=== PATIENT | male | born 1970 | race African-American/Black ===

== ENCOUNTER 2016-10-18 10:08 | Inpatient (IN) | payer MEDICAID ==
--- NOTE | 2016-10-18 10:35 | CPEKG ---
Heart Rate: 78 RR Interval: 769 P-R Interval: 148 QRSD Interval: 94 QT Interval: 440 QTC Interval: 502 P [place]: 43 QRS [place]: 19 T Wave [place]: 22 EKG Severity - ABNORMAL ECG - EKG Impression: SINUS RHYTHM Electronically Signed By: Darrell Todd 18-Oct-2016 13:42:19
--- NOTE | 2016-10-18 11:14 | EDPHY ---
H & P Smoking Status: Heavy smoker Time Seen by Provider: 10/18/16 10:30 HPI/ROS: CHIEF COMPLAINT: Short of breath, swelling bilateral legs HISTORY OF PRESENT ILLNESS: 46-year-old homeless male presents to the emergency department complaining of feeling short of breath, pain in his chest, and swelling in his lower legs. Patient states that he has felt short of breath and has had swelling in his legs intermittently for months. Feels that they have been acutely worse over last 1 week. He has not seen doctor for this in the past. He denies any reported trauma. He states he came to the emergency department today because I just could not walk. He feels short of breath lying flat but also with activity. He denies abdominal pain. He denies headache. Has a history of hypertension and has not been taking his medication as prescribed recently. Does admit to drinking alcohol for the pain. REVIEW OF SYSTEMS: Constitutional: No fever, no chills. Eyes: No double or blurry vision. ENT: No sore throat. Respiratory: Cough, shortness of breath Cardiac: Chest pain as above Gastrointestinal: No abdominal pain, vomiting or diarrhea. Genitourinary: No dysuria. Musculoskeletal: No neck or back pain. Skin: No rashes. Neurological: No headache. (NandiniMarlene lyons Ravindra) Past Medical/Surgical History: Hypertension noncompliant with medication (SumanthMarlene Ravindra) Social History: homeless (Marlene Julio) Physical Exam: General Appearance: Alert, no distress. 87% on room air. 129/89, temperature 36.5 Eyes: Pupils equal and round. Extraocular motions are all intact. ENT: Mouth: Mucous membranes moist. Respiratory: Decreased breath sounds in the bases bilaterally. Diffuse expiratory rhonchi in the apices. No respiratory distress. Cardiovascular: Regular rate and rhythm. Gastrointestinal: Abdomen is soft and nontender, no masses, no rebound or guarding, bowel sounds normal. Neurological: Alert and oriented x 3, cranial nerves II through XII grossly intact Skin: Warm and dry, no rashes. Musculoskeletal: Nontender to palpate along the cervical, thoracic or lumbar spine. Neck is supple. Extremities: Pedal edema noted bilateral lower extremities. Psychiatric: Patient is oriented X 3, there is no agitation. (SumanthMarlene) Constitutional: Initial Vital Signs Temperature (C) 36.5 C 10/18/16 10:14 Heart Rate 91 10/18/16 10:14 Respiratory Rate 18 10/18/16 10:14 Blood Pressure 129/89 H 10/18/16 10:14 O2 Sat (%) 87 L 10/18/16 10:14 O2 Delivery Mode Nasal Cannula O2 (L/minute) 2 Allergies/Adverse Reactions: venom-honey bee [bee venom (honey bee)] Allergy (Verified 06/13/16 17:15) Home Medications: Medication Instructions Recorded Doxepin HCl 06/13/16 Lisinopril/Hctz 20/12.5MG 06/13/16 Risperidone 06/13/16 amLODIPine BESYLATE [Norvasc 10 mg 10 mg PO DAILY #30 tab 06/13/16 (*)] Ibuprofen [Motrin (*)] 800 mg PO Q6-8PRN #7 tab 09/24/16 Medical Decision Making - Diagnostics EKG Interpretation: EKG: Complete interpretation has been separately recorded in the [employer] archive. Summary impression: Sinus rhythm, rate 78 (Darrell Todd) ED Course/Re-evaluation: 46-year-old male presents to the emergency department complaining of chest pain , shortness of breath and bilateral lower extremity edema. States the shortness of breath and edema in his lower legs has been present for months. He has pain in his chest for the last 3 days. He denies any known trauma or injury. His troponin is elevated at 0.041. Patient will be admitted to PCU to Dr. Jorge Sheldon. BNP is negative. Electrolytes are within normal limits. Chest x-ray was unremarkable. (Marlene Julio) Differential Diagnosis: Including but not limited to congestive heart failure, myocardial infarction, pneumonia, pulmonary embolism (Marlene Julio) Other Provider: PHYSICIAN DOCUMENTATION: The patient was evaluated and managed by the Physician Case Resolution Specialist. My co- signature indicates that I have reviewed this chart and I agree with the findings and plan of care as documented. I am the secondary supervising physician. (Darrell Todd) - Data Points Laboratory Results: Laboratory Results 10/18/16 10:45 10/18/16 10:45 10/18/16 10:45 WBC 14.00 H 10^3/uL (3.80-9.50) RBC 4.84 10^6/uL (4.40-6.38) Hgb 15.4 g/dL (13.7-17.5) Hct 45.7 % (40.0-51.0) MCV 94.4 fL (81.5-99.8) MCH 31.8 pg (27.9-34.1) MCHC 33.7 g/dL (32.4-36.7) RDW 15.0 % (11.5-15.2) Plt Count 298 10^3/uL (150-400) MPV 8.4 L fL (8.7-11.7) Neut % (Auto) 68.7 % (39.3-74.2) Lymph % (Auto) 18.0 % (15.0-45.0) [place] % (Auto) 10.1 % (4.5-13.0) Eos % (Auto) 1.4 % (0.6-7.6) Baso % (Auto) 0.7 % (0.3-1.7) Nucleat RBC Rel Count 0.0 % (0.0-0.2) Absolute Neuts (auto) 9.62 H 10^3/uL (1.70-6.50) Absolute Lymphs (auto) 2.52 10^3/uL (1.00-3.00) Absolute Monos (auto) 1.42 H 10^3/uL (0.30-0.80) Absolute Eos (auto) 0.19 10^3/uL (0.03-0.40) Absolute Basos (auto) 0.10 10^3/uL (0.02-0.10) Absolute Nucleated RBC 0.00 10^3/uL (0-0.01) Immature Gran % 1.1 % (0.0-1.1) Immature Gran # 0.15 H 10^3/uL (0.00-0.10) Sodium 140 mEq/L (134-144) Potassium 3.7 mEq/L (3.5-5.2) Chloride 102 mEq/L (97-110) Carbon Dioxide 27 mEq/l (22-31) Anion Gap 11 mEq/L (8-16) BUN 13 mg/dL (7-23) Creatinine 0.9 mg/dL (0.7-1.3) Estimated GFR > 60 Glucose 97 mg/dL (70-100) Calcium 7.7 L mg/dL (8.5-10.4) Troponin I 0.041 H ng/mL (0-0.034) NT-Pro-B Natriuret Pep 79 pg/mL (0-125) Ethyl Alcohol 175 H mg/dL (0-10) Departure - Departure Disposition: [facility] Acute Clinical Impression: Chest pain Qualifiers: Chest pain type: unspecified Qualifier Code: (R07.9) Chest pain, unspecified Condition: Good
[2016-10-18 11:15] LABS: % IMMATURE GRANULYOCYTES 1.1 % (0.0-1.1); ABSOLUTE IMMATURE GRANULOCYTES 0.15 10^3/uL (0.00-0.10); ADD DIFF? NO; ADD MORPH? NO; ADD SCAN? NO; ATYPICAL LYMPHOCYTE FLAG 0 (0-99); FRAGMENT RBC FLAG 0 (0-99); HEMATOCRIT 45.7 % (40.0-51.0); HEMOGLOBIN 15.4 g/dL (13.7-17.5); LEFT SHIFT FLG 10 (0-99); LIPEMIA HEMOLYSIS FLAG 80 (0-99); MEAN CELL HEMOGLOBIN 31.8 pg (27.9-34.1); MEAN CELL HEMOGLOBIN CONCENTR. 33.7 g/dL (32.4-36.7); MEAN CELL VOLUME 94.4 fL (81.5-99.8); MEAN PLATELET VOLUME 8.4 fL (8.7-11.7); PLATELET CLUMPS FLAG 10 (0-99); PLATELET COUNT 298 10^3/uL (150-400); RED BLOOD CELL COUNT 4.84 10^6/uL (4.40-6.38)
[2016-10-18 11:32] LABS: ANION GAP 11 mEq/L (8-16); CALCIUM 7.7 mg/dL (8.5-10.4); CARBON DIOXIDE 27 mEq/l (22-31); CHLORIDE 102 mEq/L (97-110); CREATININE 0.9 mg/dL (0.7-1.3); ETHANOL SERUM 175 mg/dL (0-10); GLOMERULAR FILTRATION RATE > 60; GLUCOSE 97 mg/dL (70-100); POTASSIUM 3.7 mEq/L (3.5-5.2); SODIUM 140 mEq/L (134-144)
--- NOTE | 2016-10-18 11:36 | DX ---
PA and lateral chest History: Chest pain, shortness of breath. Comparison: PA and lateral chest September 15, 2016. Findings: Lung volumes are low. The lungs are clear. Eventration of the mid left hemidiaphragm is ag ain noted. There is no pneumothorax or pleural effusion. The heart and pulmonary vasculature are norm al. Degenerative change is present in the spine with stable mild anterior height reduction of T7 and T8. Impression: No acute findings in the chest.
[2016-10-18 11:43] LABS: TROPONIN I 0.041 ng/mL (0-0.034)
[2016-10-18] MEDS ORDERED: ONDANSETRON DISINTEGRATING 4 MG TAB PO PRN (14:41)
--- NOTE | 2016-10-18 15:55 | GHP ---
[f rep st] HISTORY AND PHYSICAL DATE OF ADMISSION: 10/18/2016 HISTORY: Mr. Baxter is a 46-year-old gentleman with a history of hypertension, who presents to the emergency department intoxicated with shortness of breath, chest pain, and swelling in his legs. When I speak with the patient, he is difficult to arouse, but he does arouse. However, he denies chest pain, or shortness of breath. He states his legs have been swelling for about 5-6 months. He has been on Norvasc for a period of time , but it appears low shorter than that. Per the ER note, his swelling has gotten last worse over the last week and he acknowledges this to me. He denies a history of blood clots. It has been difficult to walk. Other than that, he is a little bit more challenging to get information out of. REVIEW OF SYSTEMS: Complete 10-point review of systems conducted, negative as noted in the HPI. PAST MEDICAL HISTORY: Hypertension. SOCIAL HISTORY: Homeless. He denies cigarettes. He does have a positive alcohol level of 175 here. ALLERGIES: Venom, AKA honey bee. MEDICATIONS ON ADMISSION: Norvasc, lisinopril/hydrochlorothiazide, Risperdal, doxepin, ibuprofen. FAMILY HISTORY: Reviewed and unremarkable. PHYSICAL EXAMINATION: VITAL SIGNS: Blood pressure 155/99, pulse 84, breathing 16 times a minute, 96% on 2 L, afebrile at 37. GENERAL: No acute distress, somnolent, difficult to arouse, but he is in fact arousable. HEENT: Sclerae are anicteric. Oropharynx is clear. Mucous membranes are moist. NECK: Supple without lymphadenopathy or JVD. LUNGS: Clear to auscultation bilaterally. HEART: S1, S2 without tachycardia. ABDOMEN: Soft, nontender, nondistended. LOWER EXTREMITIES: Show 3+ edema bilaterally. Calves are nontender. SKIN: Without rash. NEUROLOGIC: Grossly nonfocal. LABS: Alcohol level 175. Sodium 140, potassium 3.7, chloride 102, bicarb 27, BUN 13, creatinine 0.9, glucose 97. Calcium is low at 7.7. Troponin is 0.041. BNP is normal at 79. White count 14 with a normal differential, hematocrit 45 , platelets are 298,000. IMAGING: Chest x-ray, interpreted by me, shows no acute cardiopulmonary disease , including no pneumonia. EKG interpreted by me, shows sinus at 70 with normal axis and intervals. There is a visual suggestion of ST elevation in lead 1 however, the TP segment is the same as the ST_. I have discussed the case with Marlene Julio in the emergency department. ASSESSMENT AND PLAN: A 46-year-old gentleman, presents with lower extremity edema, shortness of breath, and intoxication. 1. Lower extremity edema: I think workup for VTE is warranted. I have ordered an ultrasound and a D-dimer. Should the ultrasound be negative and the D-dimer be positive, we will consider CT of the chest for pulmonary embolism. a normal BNP essentially rules out acute or chronic CHF; echocardiogram has been ordered for completeness sake. 2. Positive troponin: There are a myriad of causes for this, including strain from pulmonary embolism or cardiac ischemia. Will cycle his EKGs, put him on telemetry, and repeat his EKG. I will give him an aspirin. Will check a lipid panel in the morning. 3. Intoxication: This limits the utility of history taking in this patient. We will follow. The patient does not have a lot of presentations here in the past, unclear if he is at risk for withdrawal. Will follow. 4. Prophylaxis: Pharmacologic prophylaxis indicated if in the hospital for longer 24 hours. Will start it today. 5. Hypertension: We will continue his medicines and they have been reconciled. DISPOSITION: Observation status. /[id number]/MODL MTDD
--- NOTE | 2016-10-18 16:00 | CPEKG ---
Heart Rate: 87 RR Interval: 690 P-R Interval: 144 QRSD Interval: 88 QT Interval: 424 QTC Interval: 510 P [place]: 54 QRS [place]: 35 T Wave [place]: 22 EKG Severity - ABNORMAL ECG - EKG Impression: SINUS RHYTHM EKG Impression: CONSIDER LEFT VENTRICULAR HYPERTROPHY EKG Impression: PROLONGED QT INTERVAL Electronically Signed By: Sb Molina 19-Oct-2016 08:51:00
[2016-10-18 16:37] LABS: ALBUMIN 3.1 g/dL (3.5-5.0); BILIRUBIN,TOTAL 0.4 mg/dL (0.1-1.4); BILIRUBIN-CONJUGATED 0.2 mg/dL (0.0-0.5); BILIRUBIN-UNCONJUGATED 0.2 mg/dL (0.0-1.1); TOTAL PROTEIN 6.1 g/dL (6.3-8.2)
[2016-10-18 16:49] LABS: TROPONIN I 0.034 ng/mL (0-0.034)
[2016-10-18] MEDS: ASPIRIN 325 MG TAB PO SCH (17:29)
--- NOTE | 2016-10-18 17:33 | US ---
Bilateral Lower Extremity Ultrasound and Venous Duplex Doppler Study History: Bilateral lower extremity edema. Comparison: None available. Technique: High frequency transducer was used for imaging and Doppler study of the veins of the righ t and left lower extremities. Pulsed Doppler and color Doppler were utilized, along with various ma neuvers to assess flow in the veins. Findings: Right: The calf veins are difficult to visualize. The deep veins of the right lower extremity are nor dee compressible between the groin and the upper calf. They have normal Doppler waveforms within th em. No venous thrombosis is identified. Left: The calf veins are difficult to visualize. The deep veins of the left lower extremity are rashad lly compressible between the groin and the upper calf. They have normal Doppler waveforms within them . No venous thrombus is identified. There is a 5.2 x 1.5 x 4.6 cm fluid collection in the left poplit eal fossa. Subcutaneous edema is present in the calves. Impression: 1. No evidence of deep vein thrombosis in the lower extremities. 2. Left Alva's cyst.
[2016-10-18] MEDS ORDERED: FUROSEMIDE 40 MG/4 ML VIAL IVP ONE (17:37)
[2016-10-18] MEDS: oxyCODONE IR 5 MG TAB PO PRN (17:52)
[2016-10-18] MEDS ORDERED: IOPAMIDOL (ISOVUE 370) 100 ML BTL IV ONE (18:05)
--- NOTE | 2016-10-18 19:17 | CT ---
CT Chest Angiogram 1834 hours Indication: Chest pain. Technique: Thinly collimated multidetector helical CT imaging was performed through the chest while 90 mL of Isovue-370 were injected intravenously without complication. The images were then transferr ed to an independent workstation where multiplanar reconstructions were performed. Dose reduction bari hniques were utilized. Findings: CT Chest Angiogram: The pulmonary arterial system is well opacified. No intraluminal filling defect s to suggest acute or chronic thrombopulmonary embolic disease. The thoracic aorta is normal caliber . No aneurysm or dissection. CT Chest: The left hemidiaphragm is asymmetrically elevated, resulting in minimal hypoventilation in the left lower lobe. Minimal bibasilar atelectasis is accompanied by diffuse peribronchial thickening . No endobronchial lesion, mucous plugging, consolidation, pulmonary nodule, or mass. The heart size is normal. No pericardial or pleural effusion. No fracture or bone lesion. A left cervical rib is partially fused to the left first rib anteriorly. Degenerative arthropathy involves bilateral glenohumeral joints. Impression: 1. No evidence of thrombopulmonary embolic disease. 2. Minimal bibasilar atelectasis and peribronchial thickening. 3. No pneumothorax or pneumonia. 4. No rib fracture or explanation for left-sided pain.
--- NOTE | 2016-10-18 19:37 | HOSPPROG ---
Hospitalist Progress Note Assessment/Plan: VTE workup neg stress ordered for 10/19 Objective: Vital Signs Temp Pulse Resp BP Pulse Ox 36.9 C 85 17 153/98 H 95 10/18/16 14:23 10/18/16 14:23 10/18/16 14:23 10/18/16 14:23 10/18/16 14:23 10/17/16 10/18/16 10/19/16 05:59 05:59 05:59 Output Total 800 Balance -800 ICD10 Worksheet Patient Problems: Problems Problem Status Diagnosed Chest pain Acute
[2016-10-18] MEDS: amLODIPine BESYLATE 5 MG TAB PO SCH (20:24)
[2016-10-19 05:13] LABS: % IMMATURE GRANULYOCYTES 0.7 % (0.0-1.1); ABSOLUTE IMMATURE GRANULOCYTES 0.09 10^3/uL (0.00-0.10); ADD DIFF? NO; ADD MORPH? NO; ADD SCAN? NO; ATYPICAL LYMPHOCYTE FLAG 0 (0-99); FRAGMENT RBC FLAG 0 (0-99); HEMATOCRIT 45.4 % (40.0-51.0); HEMOGLOBIN 15.1 g/dL (13.7-17.5); LEFT SHIFT FLG 10 (0-99); LIPEMIA HEMOLYSIS FLAG 80 (0-99); MEAN CELL HEMOGLOBIN 31.9 pg (27.9-34.1); MEAN CELL HEMOGLOBIN CONCENTR. 33.3 g/dL (32.4-36.7); MEAN PLATELET VOLUME 8.6 fL (8.7-11.7); PLATELET CLUMPS FLAG 0 (0-99); PLATELET COUNT 283 10^3/uL (150-400); RED BLOOD CELL COUNT 4.73 10^6/uL (4.40-6.38); RED CELL DISTRIBUTION WIDTH 15.2 % (11.5-15.2)
[2016-10-19 05:17] LABS: ANION GAP 9 mEq/L (8-16); CARBON DIOXIDE 32 mEq/l (22-31); CHLORIDE 103 mEq/L (97-110); CHOLESTEROL 164 mg/dL (140-200); CHOLESTEROL/HDL RATIO 4.32 RATIO (1.00-4.97); CREATININE 0.8 mg/dL (0.7-1.3); GLOMERULAR FILTRATION RATE > 60; GLUCOSE 94 mg/dL (70-100); HIGH DENSITY LIPOPROTEIN 38 mg/dL (40-65); LDL/HDL RATIO 2.89 RATIO (1.00-3.64); LOW DENSITY LIPOPROTEIN 110 mg/dL (70-100); NON-HIGH DENSITY LIPOPROTEIN 126 mg/dL (90-129); SODIUM 144 mEq/L (134-144); TRIGLYCERIDE 83 mg/dL (40-150); VERY LOW DENSITY LIPOPROTEINS 16 mg/dL (8-25)
[2016-10-19 05:20] LABS: INR 1.03 (0.83-1.16); PROTIME(PATIENT) 13.4 SEC (12.0-15.0)
[2016-10-19] MEDS: amLODIPine BESYLATE 5 MG TAB PO SCH (08:11)
[2016-10-19] MEDS: ASPIRIN 325 MG TAB PO SCH (08:11)
[2016-10-19] MEDS: oxyCODONE IR 5 MG TAB PO PRN ×2 (08:12→16:35)
[2016-10-19] MEDS: ENOXAPARIN 40 MG/0.4 ML SYR SC SCH (08:16)
[2016-10-19] MEDS: FUROSEMIDE 40 MG/4 ML VIAL IVP SCH ×2 (08:16→15:11)
--- NOTE | 2016-10-19 08:25 | HOSPPROG ---
Hospitalist Progress Note Assessment/Plan: #Anasarca -Lexiscan showed apical thinning vs. infarct, no ischemia -e/o diastolic HF, could not assess PASP. Suspect due to underlying ESTIVEN -no protein on UA, CTA negative for PE -cont IV Lasix and BP control. Added SEJAL-I today #Indeterminate troponin (peaked at 0.04) -no CP today. No ischemia on stress #Rash with excoriations -no e/o cellulitis -bacitracin to sores and triamcinolone to rash #Depression/anxiety/PTSD -has not been taking his meds -needs to FU at [facility] #Accelerated HTN: not been taking meds -Norvasc started. Add Lisinopril -monitor for Etoh w/d #Etoh abuse: came in intoxicated. No signs now, but monitor for withdrawal #Homelessness - to provide assisted info #Diet: regular #DVT ppx: -Lovenox #Disp: patient warrants inpatient admission for monitored IV diuresis and BP control. Subjective: LE edema for several months. No cough Objective: Vital Signs Temp Pulse Resp BP Pulse Ox 36.8 C 72 16 153/93 H 94 10/19/16 04:00 10/19/16 04:00 10/19/16 04:00 10/19/16 04:00 10/19/16 04:00 Laboratory Results 10/19/16 03:48 10/19/16 03:48 10/18/16 10/19/16 10/20/16 05:59 05:59 05:59 Intake Total 2600 Output Total 2825 Balance -225 PT 13.4 SEC (12.0-15.0) 10/19/16 03:48 INR 1.03 (0.83-1.16) 10/19/16 03:48 - Physical Exam Constitutional: obese Eyes: PERRL, anicteric sclera Ears, Nose, Mouth, Throat: moist mucous membranes, hearing normal Cardiovascular: regular rate and rhythym, no murmur, rub, or gallop, JVD (could not assess with obese neck), edema (+3-4 LE edema) Gastrointestinal: normoactive bowel sounds, soft, non-tender abdomen Genitourinary: no bladder fullness Skin: rash (pink papular rash over arms and upper back. Several open exoriations legs, arms and groin. No sign of cellulitis) Musculoskeletal: full muscle strength Neurologic: AAOx3 Psychiatric: interacting appropriately ICD10 Worksheet Patient Problems: Problems Problem Status Diagnosed Chest pain Acute
[2016-10-19] MEDS ORDERED: ALBUTEROL 60 PUFFS/8 GM MDI IH PRN (10:08)
[2016-10-19] MEDS: BACITRACIN OINTMENT 1 PACKET TP SCH ×2 (10:31→21:22)
[2016-10-19 10:50] LABS: COLOR PALE YELLOW; LEUKOCYTE ESTERASE,URINE NEGATIVE (NEGATIVE); NITRITE,URINE NEGATIVE (NEGATIVE)
[2016-10-19 11:44] LABS: FOLATE SERUM 9.81 ng/mL (2.80 - >20.00)
--- NOTE | 2016-10-19 12:00 | ECHO ---
[id number] + + [address] : : [place] [address] : : [phone] + Adult Echocardiographic Report + ---+ :Name: Deb DAMON Date: 10/19/2016 10:35 AM : : Hospital Admission Number: [id number] Location: 202: :: 1970 Gender: Male Height: 69 in : :Age: 46 yrs Race: BAA Weight: 260 lb : :Reason For Study: New LE edema, untreated ESTIVEN, Eval for : :LHF, RHF BSA: 2.3 meters2 : :History: No previous : + ---+ MMode/2D Measurements & Calculations IVSd: 1.6 cm RVDd: 3.0 cm FS: 28.1 % LVOT diam: 2.2 cm LVPWd: 1.8 cm LVIDd: 4.4 cm EDV(Teich): LVOT area: LVIDs: 3.1 cm 86.4 ml ESV(Teich): 3.8 cm2 39.2 ml EF(Teich): 54.6 % LVLd ap4: 7.7 cm SV(MOD-sp4): EDV(MOD-sp4): 49.0 ml 84.0 ml LVLs ap4: 6.6 cm ESV(MOD-sp4): 35.0 ml EF(MOD-sp4): 58.3 % Normal Measurement Values: + + :LVIDd (3.5-5.7cm) IVSd (0.6-1.1cm) LVPWd (0.6-1.1cm) Aortic Root (2.0-3.7cm)Left Atrium (1.5-4.0cm): :LV Vol(d) (76-115ml) LV Vol(s) (29-48ml) Ejec Fraction (50-65%)PV Edilson (0.6- 1.2m/s) TV Edilson (0.4-1.0m/s) : :MV E Edilson (0.8-1.0m/s)MV A Edilson (0.3-1.0m/s)LVOT Edilson (0.7-1.2m/s) Asc Ao Edilson ( 0.9-1.8m/s) : + + Doppler Measurements & Calculations MV E max edilson: MV V2 mean: Ao V2 max: LV V1 max: 70.1 cm/sec 54.9 cm/sec 149.6 cm/sec 122.3 cm/sec MV A max edilson: MV mean PG: Ao max P.0 mmHgLV V1 max P.9 cm/sec 1.4 mmHg Ao mean P.0 mmHg MV E/A: 0.85 MV V2 VTI: 23.8 cm5.8 mmHg LV V1 mean PG: MV dec time: MVA(VTI): 4.0 cm2 Ao V2 mean: 2.5 mmHg 0.29 sec 114.2 cm/sec LV V1 mean: Ao V2 VTI: 32.2 cm 72.1 cm/sec SURESH(I,D): 2.9 cm2 LV V1 VTI: 25.1 cm SURESH(V,D): 3.1 cm2 SV(LVOT): 94.9 ml PA V2 max: TR max edilson: 106.6 cm/sec 181.0 cm/sec PA max PG: TR max P.6 mmHg 13.1 mmHg RAP systole: 15.0 mmHg RVSP(TR): 28.1 mmHg Left Ventricle The left ventricle is normal in size. There is moderate concentric left ventricular hypertrophy. Ejection Fraction = 61%. There is Doppler evidence for diastolic dysfunction. Flattened septum is consistent with RV pressure/volume overload. Right Ventricle The right ventricle is normal in size and function. Atria The left atrial size is normal. The right atrium is mildly dilated. Mitral Valve The mitral valve is normal in structure and function. There is no mitral valve stenosis. There is no mitral regurgitation noted. Tricuspid Valve The tricuspid valve is normal in structure and function. There is no tricuspid stenosis. There is trace tricuspid regurgitation. Unable to assess PA systolic pressure. Aortic Valve The aortic valve is normal in structure and function. There is no aortic stenosis. There is no aortic insufficiency. Pulmonic Valve The pulmonic valve is not well visualized. There is no pulmonic valvular stenosis. There is no pulmonic valvular regurgitation. Great Vessels The aortic root is normal size. Pericardium/Pleural There is a fat pad seen. Conclusion A complete two-dimensional transthoracic echocardiogram was performed (2D, M-mode, Doppler and color flow Doppler). The left ventricle is normal in size. There is moderate concentric left ventricular hypertrophy. Ejection Fraction = 61%. There is Doppler evidence for diastolic dysfunction. The right atrium is mildly dilated. There is trace tricuspid regurgitation. The aortic valve is normal in structure and function. There is a fat pad seen. Unable to assess PA systolic pressure No prior echo Final Reading Physician: Dr Karma Ring electronically signed on 10/19/2016 11:59 AM Ordering Physician: Marcella Guan Performed By: Ana Justice
[2016-10-19] MEDS ORDERED: REGADENOSON 0.4 MG/5 ML SYR IVP ONE (12:05)
--- NOTE | 2016-10-19 13:32 | CPR ---
[f rep st] NONINVASIVE CARDIAC PROCEDURE REPORT DATE OF PROCEDURE: 10/19/2016 PROCEDURE: Lexiscan myocardial perfusion imaging injection. INDICATIONS FOR PROCEDURE: Chest pressure, shortness of breath, history of hypertension. PRE: After obtaining informed consent, and assuring patient's NPO for caffeine for greater than 12 h ours, the patient was placed on electrocardiogram. Initial electrocardiogram shows sinus rhythm, nor mal axis, occasional premature atrial contraction. The patient denies of any chest pain or shortness of breath. Initial blood pressure of 159/104, saturation 93% on room air. INJECTION: Patient was given Lexiscan slow IV push followed by nuclear isotope. The patient reporte d within 1 minute of injection of noticing shortness of breath, but resolved within 5 minutes. Reall y no significant EKG changes during our post-injection period. Vital signs remained stable. Within 5 minutes, patient reports all symptoms have subsided, final blood pressure of 154/94, saturating gre ater 92%. IMPRESSION: A 46-year-old male with known history of hypertension. Admitted with chest pressure and shortness of breath. Undergoing myocardial perfusion imaging study for evaluation of possible cardi ac ischemia. No significant EKG changes noted with Lexiscan injection. The patient reported mild katelyn rtness of breath within 1 minute of injection which resolved within 5. Vital signs remained stable. Patient will finish up post-myocardial perfusion imaging in Nuclear Medicine at this time. /[id number]/MODL
--- NOTE | 2016-10-19 13:52 | NM ---
Nuclear Medicine Myocardial Perfusion Stress and Rest Imaging History: Chest pain. Comparison: None available. Technique: Rest imaging is performed after the intravenous administration of 12.3 mCi of technetiu m 99m labeled sestamibi on October 19, 2016 at 1147. Stress imaging is performed after the intravenou s administration of 28.5 mCi of technetium 99m labeled sestamibi on October 19, 2016 at 1233. Resting heart rate was 69 and maximal heart rate of 98 was attained. 0.4 mg of Lexiscan was administered wi thout complication. Images are reviewed on the independent nuclear medicine work station, computer a nalysis is performed. Findings: The left ventricular ejection fraction is 53%. Stress and rest imaging demonstrates a sm all fixed apical region of hypoperfusion with no reversible component. No focal wall motion abnormali ties. Impression: 1. Left ventricular ejection fraction of 53%. 2. Apical thinning versus infarct with no evidence of ischemia. 3. No focal wall motion abnormalities. Findings discussed with Marcella Guan today at 1343 hours.
[2016-10-19] MEDS ORDERED: hydrALAZINE 10 MG TAB PO PRN (14:58)
[2016-10-19] MEDS: LISINOPRIL 5 MG TAB PO SCH (15:10)
[2016-10-19] MEDS: TRIAMCINOLONE 0.1% 15 GM CRTUBE TP SCH ×2 (16:35→21:22)
[2016-10-20 05:33] LABS: HEMOGLOBIN 15.4 g/dL (13.7-17.5); MEAN CELL HEMOGLOBIN 32.6 pg (27.9-34.1); MEAN CELL HEMOGLOBIN CONCENTR. 33.5 g/dL (32.4-36.7); MEAN CELL VOLUME 97.5 fL (81.5-99.8); RED BLOOD CELL COUNT 4.72 10^6/uL (4.40-6.38); RED CELL DISTRIBUTION WIDTH 14.6 % (11.5-15.2)
[2016-10-20 05:54] LABS: ANION GAP 6 mEq/L (8-16); CALCIUM 8.1 mg/dL (8.5-10.4); CARBON DIOXIDE 33 mEq/l (22-31); CHLORIDE 100 mEq/L (97-110); CREATININE 0.8 mg/dL (0.7-1.3); GLOMERULAR FILTRATION RATE > 60; GLUCOSE 98 mg/dL (70-100); POTASSIUM 3.7 mEq/L (3.5-5.2); SODIUM 139 mEq/L (134-144)
[2016-10-20] MEDS: oxyCODONE IR 5 MG TAB PO PRN ×2 (06:14→14:36)
[2016-10-20] MEDS: amLODIPine BESYLATE 5 MG TAB PO SCH (09:16)
[2016-10-20] MEDS: ASPIRIN 325 MG TAB PO SCH (09:16)
[2016-10-20] MEDS: FUROSEMIDE 40 MG/4 ML VIAL IVP SCH ×2 (09:17→14:36)
[2016-10-20] MEDS: LISINOPRIL 5 MG TAB PO SCH (09:17)
[2016-10-20] MEDS: ENOXAPARIN 40 MG/0.4 ML SYR SC SCH (09:17)
[2016-10-20] MEDS: TRIAMCINOLONE 0.1% 15 GM CRTUBE TP SCH ×3 (09:18→21:21)
[2016-10-20] MEDS: BACITRACIN OINTMENT 1 PACKET TP SCH ×2 (14:36→21:21)
--- NOTE | 2016-10-20 15:47 | HOSPPROG ---
Hospitalist Progress Note Assessment/Plan: 46 yo homeless man with PMH of etoh abuse presenting with CP and volume overload. 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 Mild volume overload noted on exam, continue IV lasix for now # acute hypoxic respiratory failure: presenting with o2 of 87% in setting of above, CTA personally reviewed and interpreted w/o e/o PE or PNA, no pleural effusion. Minimal atelectasis and suspect volume overload as above. Given body habitus, likely component of ESTIVEN as well. # folliculitis/furuncles: noted on exam, no e/o associated cellulitis and all are small and draining spontaneously, will continue to keep clean and dry and monitor # etoh abuse: w/o e/o withdrawal, monitoring # HTN: being treated with norvasc and lisinopril, remains slightly elevated, will add BB and monitor # gait instability: due to deconditioning and lower extremity pain likely being driven by edema, working with PT/OT and will likely require dc to snf # h/o depression, ptsd # dispo: IP status, will need > 48 hours stay for evaluation and management of above given multiple active comorbid conditions and inability to perform ADL's and ambulate safely independently Pt new to my care. Old records reviewed and summarized as above. Care plan reviewed with CM Subjective: no significant overnight events, still having sob w/o o2 on, difficulty ambulating without a walker Objective: Vital Signs Temp Pulse Resp BP Pulse Ox 36.8 C 70 15 132/82 H 96 10/20/16 11:27 10/20/16 11:27 10/20/16 11:27 10/20/16 11:27 10/20/16 11:27 Laboratory Results 10/20/16 03:46 10/20/16 03:46 10/19/16 10/20/16 10/21/16 05:59 05:59 05:59 Intake Total 1600 Output Total 2275 1175 Balance -675 -1175 PT 13.4 SEC (12.0-15.0) 10/19/16 03:48 INR 1.03 (0.83-1.16) 10/19/16 03:48 awake alert nad anicteric op clear rrr systolic murmur cta with dec bs at bases obese soft nt 1+ ble edema warm dry well perfused, scattered 1cm draining skin lesions and follicular inflammation oriented appropriate - Time Spent With Patient Time Spent with Patient: greater than 35 minutes Time Spent with Patient: Greater than 35 minutes spent on this patients care, greater than 50% of time spent counseling, educating, and coordinating care regarding the above mentioned plan. ICD10 Worksheet Patient Problems: Problems Problem Status Diagnosed Chest pain Acute
[2016-10-20] MEDS: NICOTINE 14 MG/24 HR PATCH TD SCH (16:35)
[2016-10-20] MEDS ORDERED: LORazepam 1 MG TAB PO PRN (17:51)
[2016-10-20] MEDS: LORazepam 2 MG/ML INJ IVP PRN ×2 (18:25→23:01)
[2016-10-20] MEDS: NS 1,000 ML IV SCH (18:30)
[2016-10-20] MEDS: ONDANSETRON 4 MG/2 ML VIAL IVP PRN ×2 (19:04→23:01)
[2016-10-21 04:57] LABS: HEMATOCRIT 51.6 % (40.0-51.0); HEMOGLOBIN 17.6 g/dL (13.7-17.5); MEAN CELL HEMOGLOBIN 32.5 pg (27.9-34.1); MEAN CELL HEMOGLOBIN CONCENTR. 34.1 g/dL (32.4-36.7); MEAN CELL VOLUME 95.4 fL (81.5-99.8); RED BLOOD CELL COUNT 5.41 10^6/uL (4.40-6.38); RED CELL DISTRIBUTION WIDTH 14.6 % (11.5-15.2)
[2016-10-21 05:12] LABS: ANION GAP 9 mEq/L (8-16); CALCIUM 8.8 mg/dL (8.5-10.4); CARBON DIOXIDE 30 mEq/l (22-31); CHLORIDE 103 mEq/L (97-110); CREATININE 0.8 mg/dL (0.7-1.3); GLOMERULAR FILTRATION RATE > 60; GLUCOSE 132 mg/dL (70-100); POTASSIUM 4.3 mEq/L (3.5-5.2); SODIUM 142 mEq/L (134-144)
[2016-10-21] MEDS: ONDANSETRON 4 MG/2 ML VIAL IVP PRN (05:36)
[2016-10-21] MEDS: NICOTINE 14 MG/24 HR PATCH TD SCH (09:19)
[2016-10-21] MEDS: ASPIRIN 325 MG TAB PO SCH (09:20)
[2016-10-21] MEDS: amLODIPine BESYLATE 5 MG TAB PO SCH (09:20)
[2016-10-21] MEDS: LISINOPRIL 5 MG TAB PO SCH (09:20)
[2016-10-21] MEDS: FUROSEMIDE 40 MG/4 ML VIAL IVP SCH ×2 (09:20→15:59)
[2016-10-21] MEDS: ENOXAPARIN 40 MG/0.4 ML SYR SC SCH (09:20)
[2016-10-21] MEDS: TRIAMCINOLONE 0.1% 15 GM CRTUBE TP SCH ×3 (09:21→20:43)
[2016-10-21] MEDS: BACITRACIN OINTMENT 1 PACKET TP SCH ×2 (09:21→20:43)
[2016-10-21] MEDS: ACETAMINOPHEN 325 MG TAB PO PRN (09:54)
[2016-10-21] MEDS: oxyCODONE IR 5 MG TAB PO PRN ×2 (09:55→20:41)
[2016-10-21] MEDS: NS 1,000 ML IV SCH (15:27)
--- NOTE | 2016-10-21 16:42 | HOSPPROG ---
Hospitalist Progress Note Assessment/Plan: 46 yo homeless man with PMH of etoh abuse presenting with CP and volume overload. 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 Mild volume overload noted on exam, continue IV lasix for now # acute hypoxic respiratory failure: presenting with o2 of 87% in setting of above, CTA personally reviewed and interpreted w/o e/o PE or PNA, no pleural effusion. Minimal atelectasis and suspect volume overload as above. Given body habitus, likely component of ESTIVEN as well. # etoh abuse and withdrawal: started on ciwa, continue to monitor # folliculitis/furuncles: noted on exam, no e/o associated cellulitis and all are small and draining spontaneously, will continue to keep clean and dry and monitor # HTN: being treated with norvasc and lisinopril, remains slightly elevated, will add BB and monitor # gait instability: due to deconditioning and lower extremity pain likely being driven by edema, working with PT/OT and will likely require dc to snf # h/o depression, ptsd # dispo: IP status, will need > 48 hours stay for evaluation and management of above given multiple active comorbid conditions and inability to perform ADL's and ambulate safely independently Subjective: no significant overnight events, patient is currently feeling a bit better though somnolent, still having difficulty walking Objective: Vital Signs Temp Pulse Resp BP Pulse Ox 36.8 C 77 14 132/85 H 96 10/21/16 11:43 10/21/16 11:43 10/21/16 11:43 10/21/16 11:43 10/21/16 11:43 Laboratory Results 10/21/16 03:47 10/21/16 03:47 10/20/16 10/21/16 10/22/16 05:59 05:59 05:59 Intake Total 1600 1300 Output Total 2275 3100 625 Balance -675 -1800 -625 PT 13.4 SEC (12.0-15.0) 10/19/16 03:48 INR 1.03 (0.83-1.16) 10/19/16 03:48 awake alert nad anicteric op clear rrr systolic murmur cta with dec bs at bases obese soft nt 1+ ble edema warm dry well perfused, scattered 1cm draining skin lesions and follicular inflammation oriented appropriate ICD10 Worksheet Patient Problems: Problems Problem Status Diagnosed Chest pain Acute
[2016-10-22 04:47] LABS: HEMATOCRIT 45.4 % (40.0-51.0); HEMOGLOBIN 15.3 g/dL (13.7-17.5); MEAN CELL HEMOGLOBIN 32.7 pg (27.9-34.1); MEAN CELL HEMOGLOBIN CONCENTR. 33.7 g/dL (32.4-36.7); RED BLOOD CELL COUNT 4.68 10^6/uL (4.40-6.38); RED CELL DISTRIBUTION WIDTH 14.7 % (11.5-15.2)
[2016-10-22 04:51] LABS: ANION GAP 6 mEq/L (8-16); CALCIUM 8.4 mg/dL (8.5-10.4); CARBON DIOXIDE 33 mEq/l (22-31); CHLORIDE 101 mEq/L (97-110); CREATININE 0.8 mg/dL (0.7-1.3); GLOMERULAR FILTRATION RATE > 60; GLUCOSE 124 mg/dL (70-100); POTASSIUM 3.6 mEq/L (3.5-5.2); SODIUM 140 mEq/L (134-144)
[2016-10-22 08:05] VITALS: BP 148/95; PULSE 71; RESP 18; TEMP 98.3; O2SAT 93
[2016-10-22] MEDS ORDERED: NICOTINE POLACRILEX 2 MG GUM B PRN (09:39)
[2016-10-22] MEDS ORDERED: NICOTINE 21 MG/24 HR PATCH TD SCH (10:00)
[2016-10-22] MEDS: FUROSEMIDE 40 MG/4 ML VIAL IVP SCH (10:20)
[2016-10-22] MEDS: ENOXAPARIN 40 MG/0.4 ML SYR SC SCH (10:20)
[2016-10-22] MEDS: oxyCODONE IR 5 MG TAB PO PRN (10:20)
[2016-10-22] MEDS: ASPIRIN 325 MG TAB PO SCH (10:20)
[2016-10-22] MEDS: ACETAMINOPHEN 325 MG TAB PO PRN (10:21)
[2016-10-22] MEDS: LISINOPRIL 5 MG TAB PO SCH (10:21)
[2016-10-22] MEDS: amLODIPine BESYLATE 5 MG TAB PO SCH (10:21)
[2016-10-22] MEDS: TRIAMCINOLONE 0.1% 15 GM CRTUBE TP SCH (10:23)
[2016-10-22] MEDS: NICOTINE 14 MG/24 HR PATCH TD SCH (10:23)
[2016-10-22] MEDS: BACITRACIN OINTMENT 1 PACKET TP SCH (10:23)
--- NOTE | 2016-10-22 11:42 | PDDCSUM ---
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 essentially euvolemic at time of discharge. # acute hypoxic respiratory failure: resolved and doing well on RA currently, related to volume overload as above as well as component of atelectasis and likely minh. # etoh abuse and withdrawal: on ciwa but no longer having signficant w/d sxs # folliculitis/furuncles: noted on exam, no e/o associated cellulitis and all are small and draining spontaneously, will continue to keep clean and dry and monitor # HTN: being treated with norvasc and lisinopril, will need ongoing titration as an OP # gait instability: due to deconditioning and lower extremity pain likely being driven by edema, has improved, consideration was for snf however patient leaving hospital several times to smoke both cigarettes and marijuana. Rutledge he would likely not be compliant at snf, he agreed. # h/o depression, ptsd Dispo: dc to senior care Meds: see EHR, new meds include lisinopril, norvasc [facility] or two > 35 minutes spent in care of this patient, more than half in face to face counseling regarding discharge plans and f/u care.
== END 2016-10-22 12:43 | disposition home or self-care (01) | DRG 291 ==
LOC: F2W 14:22 → OBSVTOIN 10-19 15:12
PROVIDERS: ADMIT Internal Medicine; ATTEND Internal Medicine
PROC: HZ2ZZZZ Detoxification Services for Substance Abuse Treatment (ICD-10-PCS; principal; 2016-10-19)
DX: I50.31 Acute diastolic (congestive) heart failure (principal); I42.6 Alcoholic cardiomyopathy; J96.01 Acute respiratory failure with hypoxia; F10.230 Alcohol dependence with withdrawal, uncomplicated; F10.220 Alcohol dependence with intoxication, uncomplicated; G47.33 Obstructive sleep apnea (adult) (pediatric); L73.8 Other specified follicular disorders; I10 Essential (primary) hypertension; F43.12 Post-traumatic stress disorder, chronic; R26.81 Unsteadiness on feet; F17.210 Nicotine dependence, cigarettes, uncomplicated; F12.99 Cannabis use, unspecified with unspecified cannabis-induced disorder; Z59.0 Homelessness
CPT/HCPCS: 82607-90; 97116-GP; 97161-GP; 97165-GO; A9500; G0378; G0480; J1650; J2405; J2785; Q9967

== ENCOUNTER 2016-10-26 23:10 | Emergency (ER) | payer MEDICAID ==
[2016-10-27 00:11] VITALS: RESP 18
--- NOTE | 2016-10-27 00:16 | CPEKG ---
Heart Rate: 78 RR Interval: 769 P-R Interval: 140 QRSD Interval: 94 QT Interval: 440 QTC Interval: 502 P Belmont: 3 QRS [place]: 29 T Wave [place]: 37 EKG Severity - ABNORMAL ECG - EKG Impression: SINUS RHYTHM EKG Impression: CONSIDER LEFT VENTRICULAR HYPERTROPHY EKG Impression: PROLONGED QT INTERVAL Electronically Signed By: Jose Zuniga 27-Oct-2016 07:47:34
--- NOTE | 2016-10-27 00:36 | EDPHY ---
HPI/HX/ROS/PE/MDM Narrative: Chief complaint: Shortness of breath, numbness in feet, skin rash, general malaise HPI: 46-year-old male with a history of poorly controlled hypertension, congestive heart failure, was admitted to this hospital and discharged several days ago. Patient is currently homeless. He states that he has continued to have shortness of breath since his discharge. He is also complaining of a skin rash that he had while in the hospital. His has numbness in both of his feet and has general fatigue. The patient states that these have all been present since his discharge from the hospital. No recent fevers or chills. Has a nonproductive cough. He has not followed up with the primary care physician. States that he is unable to get his medications as he is homeless. ROS: 10 point Review of Systems is negative except as noted in the HPI. Physical exam: Gen: Awake, Alert, No Distress, obese HEENT: Nose: no rhinorrhea Eyes: PERRLA, EOMI Mouth: Moist mucosa Neck: Supple, no JVD Chest: nontender, lungs clear to auscultation Heart: S1, S2 normal, no murmur Abd: Soft, non-tender, no guarding Back: no CVA tenderness, no midline tenderness Ext: 2+ edema, non-tender Skin: His multiple lesions on his extremities and trunk consistent with folliculitis. There is no fluctuance. There are no abscesses. Neuro: CN II-XII intact, Sensation grossly intact, Strength 5/5 in bilateral upper and lower extremities ED Course: Chest x-ray: No acute infiltrates, no change from prior. 46 year male who was just discharged several days ago from the hospital for CHF exacerbation. Patient has poor compliance with medications. Lung sounds here clear. He is not currently in in any distress. Laboratory evaluations are unremarkable. Chest x-ray is also unremarkable at this time. Patient is at his baseline from his discharge. I do not feel that there is any acute exacerbations. He was also diagnosed with a folliculitis on discharge as well as this is not unchanged. There are no changes currently. Will discharge him with follow-up as an outpatient in encouragement to be compliant with medications. - Data Points Laboratory Results: Laboratory Results 10/27/16 00:15 10/27/16 00:15 10/27/16 00:15 WBC 10.13 H 10^3/uL (3.80-9.50) RBC 5.03 10^6/uL (4.40-6.38) Hgb 16.1 g/dL (13.7-17.5) Hct 46.7 % (40.0-51.0) MCV 92.8 fL (81.5-99.8) MCH 32.0 pg (27.9-34.1) MCHC 34.5 g/dL (32.4-36.7) RDW 14.6 % (11.5-15.2) Plt Count 282 10^3/uL (150-400) MPV 8.8 fL (8.7-11.7) Neut % (Auto) 59.5 % (39.3-74.2) Lymph % (Auto) 21.2 % (15.0-45.0) Nelson % (Auto) 16.4 H % (4.5-13.0) Eos % (Auto) 1.3 % (0.6-7.6) Baso % (Auto) 0.9 % (0.3-1.7) Nucleat RBC Rel Count 0.0 % (0.0-0.2) Absolute Neuts (auto) 6.03 10^3/uL (1.70-6.50) Absolute Lymphs (auto) 2.15 10^3/uL (1.00-3.00) Absolute Monos (auto) 1.66 H 10^3/uL (0.30-0.80) Absolute Eos (auto) 0.13 10^3/uL (0.03-0.40) Absolute Basos (auto) 0.09 10^3/uL (0.02-0.10) Absolute Nucleated RBC 0.00 10^3/uL (0-0.01) Immature Gran % 0.7 % (0.0-1.1) Immature Gran # 0.07 10^3/uL (0.00-0.10) Sodium 144 mEq/L (134-144) Potassium 3.5 mEq/L (3.5-5.2) Chloride 103 mEq/L (97-110) Carbon Dioxide 30 mEq/l (22-31) Anion Gap 11 mEq/L (8-16) BUN 8 mg/dL (7-23) Creatinine 0.9 mg/dL (0.7-1.3) Estimated GFR > 60 Glucose 119 H mg/dL (70-100) Calcium 8.3 L mg/dL (8.5-10.4) Total Bilirubin 0.5 mg/dL (0.1-1.4) Conjugated Bilirubin 0.2 mg/dL (0.0-0.5) Unconjugated Bilirubin 0.3 mg/dL (0.0-1.1) AST 52 IU/L (17-59) ALT 40 IU/L (21-72) Alkaline Phosphatase 59 IU/L (38-126) Troponin I 0.019 ng/mL (0-0.034) Total Protein 7.0 g/dL (6.3-8.2) Albumin 3.4 L g/dL (3.5-5.0) Lipase 197.0 IU/L (23-300) General Time Seen by Provider: 10/27/16 00:28 Initial Vital Signs: Initial Vital Signs Temperature (C) 37.6 C 10/26/16 23:29 Heart Rate 93 10/26/16 23:29 Respiratory Rate 14 10/26/16 23:29 Blood Pressure 140/91 H 10/26/16 23:29 O2 Sat (%) 88 L 10/26/16 23:29 O2 Delivery Mode Room Air O2 (L/minute) 2 Allergies/Adverse Reactions: venom-honey bee [bee venom (honey bee)] Allergy (Verified 06/13/16 17:15) Home Medications: Medication Instructions Recorded NK [No Known Home Meds] 10/26/16 Departure - Departure Disposition: Home, Routine, Self-Care Clinical Impression: CHF (congestive heart failure), Folliculitis Condition: Good Instructions: Heart Failure (ED), Folliculitis (ED) Additional Instructions: Continue the medications your prescribed when you were discharged last week. Follow up with [facility] in 1-2 days for re-evaluation. Referrals: [place],. [Primary Care Provider] - As per Instructions [facility] [Outside] - As per Instructions
[2016-10-27 00:50] LABS: % IMMATURE GRANULYOCYTES 0.7 % (0.0-1.1); ABSOLUTE IMMATURE GRANULOCYTES 0.07 10^3/uL (0.00-0.10); ADD DIFF? NO; ADD MORPH? NO; ADD SCAN? NO; ATYPICAL LYMPHOCYTE FLAG 10 (0-99); FRAGMENT RBC FLAG 0 (0-99); HEMATOCRIT 46.7 % (40.0-51.0); HEMOGLOBIN 16.1 g/dL (13.7-17.5); LEFT SHIFT FLG 10 (0-99); LIPEMIA HEMOLYSIS FLAG 90 (0-99); MEAN CELL HEMOGLOBIN CONCENTR. 34.5 g/dL (32.4-36.7); MEAN CELL VOLUME 92.8 fL (81.5-99.8); MEAN PLATELET VOLUME 8.8 fL (8.7-11.7); PLATELET CLUMPS FLAG 20 (0-99); PLATELET COUNT 282 10^3/uL (150-400); RED BLOOD CELL COUNT 5.03 10^6/uL (4.40-6.38); RED CELL DISTRIBUTION WIDTH 14.6 % (11.5-15.2)
[2016-10-27 00:53] LABS: ALANINE AMINOTRANSFERASE 40 IU/L (21-72); ALBUMIN 3.4 g/dL (3.5-5.0); ALKALINE PHOSPHATASE 59 IU/L (38-126); ANION GAP 11 mEq/L (8-16); ASPARTATE AMINOTRANSFERASE 52 IU/L (17-59); BILIRUBIN,TOTAL 0.5 mg/dL (0.1-1.4); BILIRUBIN-CONJUGATED 0.2 mg/dL (0.0-0.5); BILIRUBIN-UNCONJUGATED 0.3 mg/dL (0.0-1.1); CALCIUM 8.3 mg/dL (8.5-10.4); CARBON DIOXIDE 30 mEq/l (22-31); CHLORIDE 103 mEq/L (97-110); CREATININE 0.9 mg/dL (0.7-1.3); GLOMERULAR FILTRATION RATE > 60; GLUCOSE 119 mg/dL (70-100); POTASSIUM 3.5 mEq/L (3.5-5.2); SODIUM 144 mEq/L (134-144)
[2016-10-27 01:05] LABS: TROPONIN I 0.019 ng/mL (0-0.034)
[2016-10-27 02:47] VITALS: BP 153/99; PULSE 85; TEMP 97.5; O2SAT 92
--- NOTE | 2016-10-27 08:20 | DX ---
Chest, PA and Lateral History: Dyspnea Comparison: October 18, 2016 Findings: There is chronic or recurrent moderate retrocardiac bronchial wall thickening. Lungs are cl ear, without infiltrate or consolidation. Heart size and pulmonary vascularity are normal. There is n o adenopathy or mass lesion. There is no pleural effusion or pneumothorax. 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 T here is stable thoracic degenerative change associated with a mild kyphosis. Impression: Airways disease without pneumonia.
== END 2016-10-27 02:45 | disposition home or self-care (01) ==
DX: I50.9 Heart failure, unspecified (principal); L73.9 Follicular disorder, unspecified

== ENCOUNTER 2016-11-02 10:00 | Emergency (ER) | payer MEDICAID ==
[~2016-11-02 10:00] MED LIST: CEPHALEXIN 500 MG CAP PO SCH; SULFAMETHOX/TMP 800/160 MG 1 TAB PO SCH
--- NOTE | 2016-11-02 11:37 | EDPHY ---
H & P Stated Complaint: Sores all over body. "cant feel my legs, hot and cold spells" Source: Patient Exam Limitations: No limitations - Personal History Current Tetanus Diphtheria and Acellular Pertussis (TDAP): Yes - Medical/Surgical History Hx Asthma: No Hx Chronic Respiratory Disease: Yes Hx Diabetes: Yes Hx Cardiac Disease: Yes Hx Renal Disease: No Hx Cirrhosis: No Hx Alcoholism: Yes Hx HIV/AIDS: No Hx Splenectomy or Spleen Trauma: No Other PMH: PMHx: depression, COPD, HTN, prediabetes, alcoholism. PSHx: appy - Family History Significant Family History: No pertinent family hx - Social History Smoking Status: Heavy smoker Alcohol Use: None Drug Use: None Time Seen by Provider: 11/02/16 11:32 HPI/ROS: HPI: 46-year-old male presents to emergency department with chief concern rash. This rash has been present for at least a month. Reports skin eruptions on his arm, foot, and testicle. At times pruritic. Denies fever, chills, URI symptoms, shortness of breath, chest pain, abdominal pain, nausea, vomiting, diarrhea. He is a poorly compliant patient who has CHF, hypertension, cardiomyopathy and was recently admitted to the hospital. He has not followed up with primary care as he has been instructed to do at least twice. When asked why he has not followed [facility] he states I am an alcoholic and I prefer to drink. ROS:10 point review of systems is negative other than as stated in HPI (Karma Tripathi) - Social History Additional Social History: Homeless (Karma Tripathi) - Physical Exam Exam: Vital signs stable, reviewed by me General: Awake, alert, calm, cooperative. No acute distress. Head: Normalocephalic. Atraumatic. EENT: PERRLA. EOMI. No pallor or injection. Anicteric. No nystagmus. No injection. TMs intact bilaterally with normal landmarks. No rhinnorhea, nasal passages clear. Oropharynx without redness, exudates, or lesions. Tonsils 2+ bilaterally, no exudates. Neck: Supple, nontender. No lymphadenopathy. Full range of motion. No meningismus. Respiratory: Breathing unlabored. Breath sounds equal bilaterally and clear to auscultation. No adventitious sounds. CV: Chest nontender, atraumatic. Heart rate regular. No murmur, distal pulses 2+ bilaterally. Brisk cap refill all extremities. GI: Abdomen soft, nontender. Bowel sounds normoactive and positive x4 quadrants. Neuro: Alert. Oriented x 3. Speech clear. Nonfocal cranial nerves throughout. Sensation intact all extremities. Skin: Skin warm, dry. Several pustular skin lesions less than 1 cm diameter scattered about the upper extremities and the right foot. There is a 1 cm ulcerated skin lesion on the base the left testicle. Skin turgor normal. Extremities: Full range of motion in all 4 extremities. Strength 5+ all extremities. (Karma Tripathi) Constitutional: Initial Vital Signs Temperature (C) 36.5 C 11/02/16 10:05 Heart Rate 85 11/02/16 10:05 Respiratory Rate 18 11/02/16 10:05 Blood Pressure 133/104 H 11/02/16 10:05 O2 Sat (%) 94 11/02/16 10:05 O2 Delivery Mode Room Air Allergies/Adverse Reactions: venom-honey bee [bee venom (honey bee)] Allergy (Verified 06/13/16 17:15) Home Medications: Medication Instructions Recorded Cephalexin [Keflex (*)] 500 mg PO QID #28 cap 11/02/16 Sulfamethox/Tmp 800/160 mg 1 tab PO BID #14 tab 11/02/16 [Bactrim Ds] Medical Decision Making ED Course/Re-evaluation: 38-year-old male presents to emergency department with chief concern rash. This rash was present when he was discharged from the hospital in the past month , as well as present his last ER visit this month. He has been instructed to follow up with the [facility] at least twice and has not done so because I prefer to drink. Of note, he also has what appears to possibly be a chancre on the base of his testicle. I have prescribed both Bactrim and Keflex for this gentleman, mapped them through case management, and will perform serologic testing for syphilis. I have requested Case Management to obtain a good phone number for this patient as he is homeless. I have counseled him regarding the need to follow up promptly with [facility] as he has been it has tried to do at least twice on his last 2 hospital visits. I have encouraged him and counseled him regarding taking responsibility for his health, and quitting drinking, and following up as directed. Patient has no cell phone. He was counseled by director of casework to either return to the ED in 2 days or call ED for results of syphilis test. (Karma Tripathi) Differential Diagnosis: Differential diagnosis includes but is not limited to folliculitis, acne ache syphilis, other rash (Karma Tripathi) - Data Points Laboratory Results: 11/02/16 12:00 Syphilis IgG Antibody Pending Departure - Departure Disposition: Home, Routine, Self-Care Clinical Impression: Rash Condition: Good Instructions: Cephalexin (By mouth), Sulfamethoxazole/Trimethoprim (By mouth), Acute Rash (ED) Additional Instructions: Plan: You have an appointment at [place] [address] [facility], tomorrow 11/03/16 with a 10:45 a.m. check-in time. Please follow-up with [facility] without fail. Please contact [facility] [phone] in 48 hours for laboratory results. This is very important to your health. It is imperative that you follow up with [facility] as you have been instructed to do your last 2 visits--When you call to schedule appointment, please let the office know you are an "ER follow up" appointment" Stop drinking Both antibiotics as prescribed for 1 week--we provided those for you here in the emergency department, take with food Referrals: NONE *PRIMARY CARE P,. [Primary Care Provider] - As per Instructions [facility] [Outside] - As per Instructions Prescriptions: Sulfamethox/Tmp 800/160 mg [Bactrim Ds] 1 tab PO BID #14 tab Cephalexin [Keflex (*)] 500 mg PO QID #28 cap
[2016-11-02 13:03] VITALS: BP 132/90; PULSE 87; RESP 15; TEMP 98.8; O2SAT 96
== END 2016-11-02 13:02 | disposition home or self-care (01) ==
DX: R21 Rash and other nonspecific skin eruption (principal); J44.9 Chronic obstructive pulmonary disease, unspecified; I10 Essential (primary) hypertension; F17.200 Nicotine dependence, unspecified, uncomplicated

== ENCOUNTER 2016-11-03 16:55 | Inpatient (IN) | payer MEDICAID ==
--- NOTE | 2016-11-03 17:11 | EDPHY ---
H & P Time Seen by Provider: 11/03/16 17:11 HPI/ROS: CHIEF COMPLAINT: Suicidal and overdose HISTORY OF PRESENT ILLNESS: This 46-year-old man self presented to the emergency department saying that he took pills this afternoon in an attempt to hurt himself. He tells us that he obtained round white pills on the street and took them he tells me 3 hours ago but he told the triage nurse 1 hour ago. He says he does not know what they were. Patient says he has severe depression. It is worsened by homelessness and alcoholism. He says he wants to kill himself. REVIEW OF SYSTEMS: Eye: no change in vision ENT: no sore throat Cardiac: no chest pain or syncope Pulmonary: no cough or SOB Abdomen: no vomiting, diarrhea, abdominal pain Musculoskeletal: Patient complains of pain in his right 2nd toe for at least the last week to 2 weeks. Skin: Scattered rash, patient tells me he has a staph infection. Neuro: no headache Constitutional: no fever : no urinary symptoms A comprehensive 10 point review of systems is otherwise negative aside from elements mentioned in the history of present illness. PAST MEDICAL HISTORY: Discharge summary dated 10/19/2016 reviewed by myself includes diastolic heart failure, alcoholism, folliculitis, hypertension, depression and PTSD. Social history: Homeless, recent alcohol. General Appearance: Lethargic but opens eyes to voice. Eyes: No scleral icterus. ENT, Mouth: Normal mucous membranes. Respiratory: Normal respiratory effort, breath sounds equal, lungs are clear to auscultation. Cardiovascular: Regular rate and rhythm. Gastrointestinal: Abdomen is soft and non tender. Neurological: Lethargic but opens eyes to voice and is oriented and answers questions appropriately. Normally conversant. Face symmetric, normal movement and sensation in all extremities. Skin: Patient has scattered areas of erythema with central wound excoriation including anterior abdomen and left inner thigh/groin and scrotum. Does not have surrounding redness on scrotum or evidence of [place]. No crepitus. He also has a right 2nd toe which is discolored and darkened in color with a blister 2cm diameter dorsally. No lacerations. Musculoskeletal: Trace bilateral edema no extremity deformity. Psychiatric: Depressed admits suicidal ideation. Emergency Department course/MDM: Supplemental oxygen applied. Labs to include Tylenol and aspirin, EKG, ethanol. 1750: Placed on a mental health hold by myself for suicidal ideation and intentional overdose. 1810: Tylenol and salicylate negative, patient likely has a right 2nd toe infection with some clinical evidence of gangrene. Lactate screening and broad-spectrum antibiotics to include ertapenem and vancomycin. IV fluid resuscitation with normal saline 1 L IV bolus. Admission to ICU for infected diabetic foot and alcohol intoxication with suicidal ideation on a mental health hold. 1830: WBC 40947 but otherwise did not meet SIRS criteria on arrival. However with elevated lactate was ordered 30 mL/kilogram IV fluid bolus of crystalloid per sepsis protocol. Repeat lactate 1.7. Never hypotensive in the emergency department, does not meet septic shock criteria. Smoking Status: Heavy smoker Constitutional: Initial Vital Signs Temperature (C) 36.4 C 11/03/16 17:10 Heart Rate 82 11/03/16 17:10 Respiratory Rate 18 11/03/16 17:10 Blood Pressure 132/90 H 11/03/16 17:10 O2 Sat (%) 98 11/03/16 17:10 O2 Delivery Mode Non-Rebreather Mask O2 (L/minute) 15 Allergies/Adverse Reactions: venom-honey bee [bee venom (honey bee)] Allergy (Verified 06/13/16 17:15) Home Medications: Medication Instructions Recorded GABAPENTIN 11/03/16 Medical Decision Making - Diagnostics EKG Interpretation: 12-lead EKG interpreted by me; official reading is in trace master. My interpretation is sinus rhythm at 82, LVH, prolonged QT interval. Imaging: Chest x-ray viewed by myself shows rotation but no infiltrates. Right foot x-ray does not show fracture or gas in the soft tissues, personally viewed by myself. Differential Diagnosis: Differential diagnosis considered for depression including functional and major depression, situational depression, medication side effect, drugs and alcohol abuse. Consult/Admit Bed Type: [place] [address] Critical Care Time: Critical care time spent by me, Dr. Kaur, exclusively with the care of this patient was 45 minutes, exclusive of PA or PEER TUTOR time and exclusive of separate procedures. The organ system at risk was infectious, and neurologic and I ordered supplemental oxygen, IV fluids and antibiotics to include ertapenem and vancomycin, discussion with admitting hospitalist physician; to stabilize the patient and prevent worsening of the patient's condition. - Data Points Laboratory Results: Laboratory Results 11/03/16 17:15 11/03/16 17:15 11/03/16 11/03/16 11/03/16 18:15 17:15 17:12 WBC 16.20 H 10^3/uL (3.80-9.50) RBC 4.95 10^6/uL (4.40-6.38) Hgb 16.5 g/dL (13.7-17.5) POC Hgb 17.0 gm/dL (14.5-17.3) Hct 46.3 % (40.0-51.0) POC Hct 50 % (42.8-50.6) MCV 93.5 fL (81.5-99.8) MCH 33.3 pg (27.9-34.1) MCHC 35.6 g/dL (32.4-36.7) RDW 14.6 % (11.5-15.2) Plt Count 243 10^3/uL (150-400) MPV 8.6 L fL (8.7-11.7) Neut % (Auto) 72.3 % (39.3-74.2) Lymph % (Auto) 17.7 % (15.0-45.0) [place] % (Auto) 8.6 % (4.5-13.0) Eos % (Auto) 0.4 L % (0.6-7.6) Baso % (Auto) 0.4 % (0.3-1.7) Nucleat RBC Rel Count 0.0 % (0.0-0.2) Absolute Neuts (auto) 11.73 H 10^3/uL (1.70-6.50) Absolute Lymphs (auto) 2.86 10^3/uL (1.00-3.00) Absolute Monos (auto) 1.39 H 10^3/uL (0.30-0.80) Absolute Eos (auto) 0.06 10^3/uL (0.03-0.40) Absolute Basos (auto) 0.07 10^3/uL (0.02-0.10) Absolute Nucleated RBC 0.00 10^3/uL (0-0.01) Immature Gran % 0.6 % (0.0-1.1) Immature Gran # 0.09 10^3/uL (0.00-0.10) PT 13.4 SEC (12.0-15.0) INR 1.03 (0.83-1.16) APTT 28.8 SEC (23.0-38.0) VBG Lactic Acid 2.3 H mmol/L (0.7-2.1) POC Sodium 142 mEq/L (134-144) Sodium 143 mEq/L (134-144) POC Potassium 3.1 L mEq/L (3.3-5.0) Potassium 3.5 mEq/L (3.5-5.2) POC Chloride 99 mEq/L (96-108) Chloride 101 mEq/L (97-110) Carbon Dioxide 27 mEq/l (22-31) Anion Gap 15 mEq/L (8-16) POC BUN 12 mg/dL (7-23) BUN 14 mg/dL (7-23) Creatinine 1.3 mg/dL (0.7-1.3) POC Creatinine 1.6 H mg/dL (0.8-1.5) Estimated GFR 59 Glucose 116 H mg/dL (70-100) POC Glucose 126 H mg/dL (70-100) Calcium 8.8 mg/dL (8.5-10.4) Salicylates < 1.0 L mg/dL (2.0-20.0) Acetaminophen < 10 L mcg/mL (10.0-30.0) Ethyl Alcohol 265 H mg/dL (0-10) Medications Given: Discontinued Medications Sodium Chloride (Ns) 1,000 mls @ 0 mls/hr IV ONCE ONE PRN Reason: Wide Open Stop: 11/03/16 17:53 Last Admin: 11/03/16 18:54 Dose: Not Given Ertapenem 1 gm/ Sodium (Chloride) 100 mls @ 200 mls/hr IV EDNOW ONE PRN Reason: Protocol Stop: 11/03/16 18:37 Last Admin: 11/03/16 18:54 Dose: 100 mls Vancomycin/Sodium Chloride (Vancomycin 1 Gm (Premix)) 250 mls @ 250 mls/hr IV EDNOW ONE PRN Reason: Protocol Stop: 11/03/16 19:08 Last Admin: 11/03/16 19:05 Dose: 250 mls Sodium Chloride (Ns *For Sepsis Order Set Only*) 3,538 ml IV EDNOW ONE Stop: 02/09/17 18:36 Last Admin: 11/03/16 18:53 Dose: 3,538 ml Point of Care Test Results: 11/03/16 17:12 POC Sodium 142 POC Potassium 3.1 L POC Chloride 99 POC BUN 12 POC Creatinine 1.6 H POC Glucose 126 H Departure - Departure Disposition: [facility] Acute Clinical Impression: Diabetic foot infection, Suicidal ideation Alcohol intoxication Qualifiers: Qualifier Code: (F10.120) Alcohol abuse with intoxication, uncomplicated Condition: Serious
[2016-11-03] MEDS ORDERED: NALOXONE HCL 0.4 MG/ML INJ ONE ×2 (17:12)
[2016-11-03 17:31] LABS: % IMMATURE GRANULYOCYTES 0.6 % (0.0-1.1); ABSOLUTE IMMATURE GRANULOCYTES 0.09 10^3/uL (0.00-0.10); ADD DIFF? NO; ADD MORPH? NO; ADD SCAN? NO; ATYPICAL LYMPHOCYTE FLAG 10 (0-99); FRAGMENT RBC FLAG 0 (0-99); HEMATOCRIT 46.3 % (40.0-51.0); HEMOGLOBIN 16.5 g/dL (13.7-17.5); LEFT SHIFT FLG 0 (0-99); LIPEMIA HEMOLYSIS FLAG 90 (0-99); MEAN CELL HEMOGLOBIN 33.3 pg (27.9-34.1); MEAN CELL HEMOGLOBIN CONCENTR. 35.6 g/dL (32.4-36.7); MEAN CELL VOLUME 93.5 fL (81.5-99.8); MEAN PLATELET VOLUME 8.6 fL (8.7-11.7); PLATELET CLUMPS FLAG 0 (0-99); PLATELET COUNT 243 10^3/uL (150-400); RED BLOOD CELL COUNT 4.95 10^6/uL (4.40-6.38); RED CELL DISTRIBUTION WIDTH 14.6 % (11.5-15.2)
--- NOTE | 2016-11-03 17:38 | DX ---
Portable AP chest. 11/03/2016 at 1728 History: hypoxia Comparison study: October 27, 2016 Findings: Diminished lung volumes are associated with bilateral lower lobe atelectasis. No focal infi ltrate, pleural effusion, pneumothorax. Heart size is within normal limits. Impression: Diminished lung volumes with bilateral lower lobe atelectasis.
--- NOTE | 2016-11-03 17:40 | DX ---
Right foot, 3 views. History: 2nd toe infection, PAIN Comparison examination:none available Findings: Advanced features of osteoarthritis are identified within the first metatarsophalangeal dex int. No fracture, bone resorption, or malalignment. Moderate size plantar calcaneal spur incidentally noted. Impression: First MTP osteoarthritis, otherwise negative exam.
--- NOTE | 2016-11-03 17:49 | CPEKG ---
Heart Rate: 82 RR Interval: 732 P-R Interval: 156 QRSD Interval: 98 QT Interval: 440 QTC Interval: 514 P [place]: 45 QRS [place]: 20 T Wave [place]: 24 EKG Severity - ABNORMAL ECG - EKG Impression: SINUS RHYTHM EKG Impression: PROBABLE LEFT VENTRICULAR HYPERTROPHY EKG Impression: PROLONGED QT INTERVAL Electronically Signed By: Jean Kaur 03-Nov-2016 18:06:12
[2016-11-03 18:00] LABS: ANION GAP 15 mEq/L (8-16); CALCIUM 8.8 mg/dL (8.5-10.4); CARBON DIOXIDE 27 mEq/l (22-31); CHLORIDE 101 mEq/L (97-110); CREATININE 1.3 mg/dL (0.7-1.3); ETHANOL SERUM 265 mg/dL (0-10); GLOMERULAR FILTRATION RATE 59; GLUCOSE 116 mg/dL (70-100); POTASSIUM 3.5 mEq/L (3.5-5.2); SALICYLATE < 1.0 mg/dL (2.0-20.0); SODIUM 143 mEq/L (134-144)
[2016-11-03] MEDS: NS 1,000 ML IV ONE ×2 (18:00→18:54)
[2016-11-03] MEDS ORDERED: ERTAPENEM 1 GM in NS 100 ML IV ONE (18:08)
[2016-11-03] MEDS ORDERED: VANCOMYCIN HCL/NORMAL SALINE 250 ML IV ONE (18:09)
[2016-11-03] MEDS ORDERED: NS 1,000 ML BAG *FOR SEPSIS ORDER SET ONLY IV ONE (18:35)
[2016-11-03 18:38] LABS: INR 1.03 (0.83-1.16); PROTIME(PATIENT) 13.4 SEC (12.0-15.0)
[2016-11-03 18:39] LABS: APTT 28.8 SEC (23.0-38.0)
[2016-11-03 19:25] LABS: LACGHOST ORDER
[2016-11-03 19:33] LABS: BILIRUBIN,TOTAL 0.6 mg/dL (0.1-1.4)
[2016-11-03 20:05] LABS: COLOR YELLOW; LEUKOCYTE ESTERASE,URINE NEGATIVE (NEGATIVE); NITRITE,URINE NEGATIVE (NEGATIVE)
--- NOTE | 2016-11-03 22:43 | PDGENHP ---
History and Physical - Chief Complaint suicide attempt - History of Present Illness 46 YO male with suicide attempt. Took an unknown amount of pills. He does not know what they were. In the E.D. he was found to have hypoxemic and given Narcan with some improvement. Urine Tox was negative for opiates or benzo's. Positive for ETOH and and Cannabis. Respiratory status is improving. He is somewhat confused and obtaining a hx of difficult. Most of it is obtained from the medical record. He is on a mental hold He does not have any electrolyte abnormality. Bicarb was unremarkable. No EKG changes. He was found to have an elevated lactate and Leukocytosis. He was started on broad spectrum abx for suspected right foot/right second toe cellulitis and started on sepsis protocols fluids. He has a hx of diastolic CHF and per the record he does not appear to be on Lasix. ROS: + per HPI, otherwise negative. Denies CP, palpitations. Reports leg swelling. No urinary sx's PMHx: diastolic CHF, alcoholism, folliculitis, HTN, depression, PTSD Soc: homeless, ETOH Meds/All: reviewed O: On 15L Alert, no oriented MM dry no obvious JVD RRR Decreased lung sounds, no wheezing obese, s/nt/nd trace to 1+ Bilateral LE edema Right foot: ulceration to right great toe. no erythema. Very TTP of second and third toes up to the foot. labs: reviewed Imaging/studies: reviewed I/P #SUICIDE ATTEMPT AND INTENTIONAL OVERDOSE. SUBSTANCE AND AMOUNT ARE UNKNOWN #ALCOHOL INTOXICATION #ACUTE ENCEPHALOPATHY LIKELY DUE TO ABOVE #RIGHT SECOND TOE INFECTION #HYPOXEMIA, LIKELY DUE TO INTOXICATION. CXR WITH NO INFILTRATES #LEUKOCYTOSIS #ELEVATED SERUM LACTATE, RESOLVED #PROLONGED QT #DEPRESSION AND PTSD PLAN: ADMIT TO ICU MENTAL HOLD, PSYCH EVAL (WILL NEED TO BE ORDERED IN THE DAY) CONTINUE VANC AND INVANZ WHICH WERE STARTED IN THE E.D. OBTAIN CRP/ESR. PENDING IMPROVED MENTATION, CONSIDER FURTHER IMAGING OF FOOT AND PODIATRY CONSULT HOLD IVF BP IS OK AND HAS RECEIVED A SIGNIFICANT AMOUNT IN SETTING OF CHRONIC DIASTOLIC CHF AVOID AGENTS THAT PROLONG THE QT NARCAN NEEDED, BIPAP NEEDED. CURRENTLY PROTECTING AIRWAY. SUSPECT HYPOXEMIA IS DUE TO INTOXICATION AND INTENTIONAL OVERDOSE. CXR WAS UNREMARKABLE. STRONG HX OF TOBACCO USE NOTED, NO ACTIVE WHEEZING CURRENTLY. DVT PROPH total care time is 65 minutes History Information - Allergies/Home Medication List Allergies/Adverse Reactions: venom-honey bee [bee venom (honey bee)] Allergy (Verified 06/13/16 17:15) Home Medications: GABAPENTIN 11/03/16 [Last Taken Unknown] I have personally reviewed and updated: medical history, social history - Social History Smoking Status: Heavy smoker Physical Exam Temp Pulse Resp BP Pulse Ox 36.4 C 98 21 H 149/97 H 95 11/03/16 17:10 11/03/16 21:27 11/03/16 21:27 11/03/16 21:27 11/03/16 21:27 O2 (L/minute) 15 Lab Data & Imaging Review 11/03/16 17:15 11/03/16 17:15 WBC 16.20 10^3/uL (3.80-9.50) H 11/03/16 17:15 RBC 4.95 10^6/uL (4.40-6.38) 11/03/16 17:15 Hgb 16.5 g/dL (13.7-17.5) 11/03/16 17:15 POC Hgb 17.0 gm/dL (14.5-17.3) 11/03/16 17:12 Hct 46.3 % (40.0-51.0) 11/03/16 17:15 POC Hct 50 % (42.8-50.6) 11/03/16 17:12 MCV 93.5 fL (81.5-99.8) 11/03/16 17:15 MCH 33.3 pg (27.9-34.1) 11/03/16 17:15 MCHC 35.6 g/dL (32.4-36.7) 11/03/16 17:15 RDW 14.6 % (11.5-15.2) 11/03/16 17:15 Plt Count 243 10^3/uL (150-400) 11/03/16 17:15 MPV 8.6 fL (8.7-11.7) L 11/03/16 17:15 Neut % (Auto) 72.3 % (39.3-74.2) 11/03/16 17:15 Lymph % (Auto) 17.7 % (15.0-45.0) 11/03/16 17:15 [place] % (Auto) 8.6 % (4.5-13.0) 11/03/16 17:15 Eos % (Auto) 0.4 % (0.6-7.6) L 11/03/16 17:15 Baso % (Auto) 0.4 % (0.3-1.7) 11/03/16 17:15 Nucleat RBC Rel Count 0.0 % (0.0-0.2) 11/03/16 17:15 Absolute Neuts (auto) 11.73 10^3/uL (1.70-6.50) H 11/03/16 17:15 Absolute Lymphs (auto) 2.86 10^3/uL (1.00-3.00) 11/03/16 17:15 Absolute Monos (auto) 1.39 10^3/uL (0.30-0.80) H 11/03/16 17:15 Absolute Eos (auto) 0.06 10^3/uL (0.03-0.40) 11/03/16 17:15 Absolute Basos (auto) 0.07 10^3/uL (0.02-0.10) 11/03/16 17:15 Absolute Nucleated RBC 0.00 10^3/uL (0-0.01) 11/03/16 17:15 Immature Gran % 0.6 % (0.0-1.1) 11/03/16 17:15 Immature Gran # 0.09 10^3/uL (0.00-0.10) 11/03/16 17:15 PT 13.4 SEC (12.0-15.0) 11/03/16 17:15 INR 1.03 (0.83-1.16) 11/03/16 17:15 APTT 28.8 SEC (23.0-38.0) 11/03/16 17:15 VBG Lactic Acid 1.7 mmol/L (0.7-2.1) 11/03/16 19:26 POC Sodium 142 mEq/L (134-144) 11/03/16 17:12 Sodium 143 mEq/L (134-144) 11/03/16 17:15 POC Potassium 3.1 mEq/L (3.3-5.0) L 11/03/16 17:12 Potassium 3.5 mEq/L (3.5-5.2) 11/03/16 17:15 POC Chloride 99 mEq/L (96-108) 11/03/16 17:12 Chloride 101 mEq/L (97-110) 11/03/16 17:15 Carbon Dioxide 27 mEq/l (22-31) 11/03/16 17:15 Anion Gap 15 mEq/L (8-16) 11/03/16 17:15 POC BUN 12 mg/dL (7-23) 11/03/16 17:12 BUN 14 mg/dL (7-23) 11/03/16 17:15 Creatinine 1.3 mg/dL (0.7-1.3) 11/03/16 17:15 POC Creatinine 1.6 mg/dL (0.8-1.5) H 11/03/16 17:12 Estimated GFR 59 11/03/16 17:15 Glucose 116 mg/dL (70-100) H 11/03/16 17:15 POC Glucose 126 mg/dL (70-100) H 11/03/16 17:12 Calcium 8.8 mg/dL (8.5-10.4) 11/03/16 17:15 Total Bilirubin 0.6 mg/dL (0.1-1.4) 11/03/16 19:00 Urine Color YELLOW 11/03/16 19:10 Urine Appearance CLEAR 11/03/16 19:10 Urine pH 6.0 (5.0-7.5) 11/03/16 19:10 Ur Specific [place] 1.008 (1.002-1.030) 11/03/16 19:10 Urine Protein NEGATIVE (NEGATIVE) 11/03/16 19:10 Urine Ketones NEGATIVE (NEGATIVE) 11/03/16 19:10 Urine Blood NEGATIVE (NEGATIVE) 11/03/16 19:10 Urine Nitrate NEGATIVE (NEGATIVE) 11/03/16 19:10 Urine Bilirubin NEGATIVE (NEGATIVE) 11/03/16 19:10 Urine Urobilinogen NEGATIVE EU (0.2-1.0) 11/03/16 19:10 Ur Leukocyte Esterase NEGATIVE (NEGATIVE) 11/03/16 19:10 Urine Glucose NEGATIVE (NEGATIVE) 11/03/16 19:10 Salicylates < 1.0 mg/dL (2.0-20.0) L 11/03/16 17:15 Urine Opiates Screen NEGATIVE (NEGATIVE) 11/03/16 19:10 Acetaminophen < 10 mcg/mL (10.0-30.0) L 11/03/16 17:15 Urine Barbiturates NEGATIVE (NEGATIVE) 11/03/16 19:10 Ur Phencyclidine Scrn NEGATIVE (NEGATIVE) 11/03/16 19:10 Ur Amphetamine Screen NEGATIVE (NEGATIVE) 11/03/16 19:10 U Benzodiazepines Scrn NEGATIVE (NEGATIVE) 11/03/16 19:10 Urine Cocaine Screen NEGATIVE (NEGATIVE) 11/03/16 19:10 U Marijuana (THC) Screen NON-NEGATIVE (NEGATIVE) H 11/03/16 19:10 Ethyl Alcohol 265 mg/dL (0-10) H 11/03/16 17:15 Assessment & Plan Assessment: Alcohol intoxication (Acute) Chest pain (Acute) Diabetic foot infection (Acute) Suicidal ideation (Acute)
[2016-11-03 22:46] LABS: HEMATOCRIT 44.5 % (40.0-51.0)
[2016-11-04] MEDS: HYDROCODONE/APAP 5/325 TAB PO PRN ×5 (00:49→21:34)
[2016-11-04] MEDS: hydrALAZINE 20 MG/ML VIAL IVP PRN (03:54)
[2016-11-04 04:18] LABS: % IMMATURE GRANULYOCYTES 0.6 % (0.0-1.1); ABSOLUTE IMMATURE GRANULOCYTES 0.09 10^3/uL (0.00-0.10); ADD DIFF? NO; ADD MORPH? NO; ADD SCAN? NO; ATYPICAL LYMPHOCYTE FLAG 0 (0-99); FRAGMENT RBC FLAG 0 (0-99); HEMATOCRIT 45.1 % (40.0-51.0); HEMOGLOBIN 15.5 g/dL (13.7-17.5); LEFT SHIFT FLG 20 (0-99); LIPEMIA HEMOLYSIS FLAG 90 (0-99); MEAN CELL HEMOGLOBIN 31.9 pg (27.9-34.1); MEAN CELL HEMOGLOBIN CONCENTR. 34.4 g/dL (32.4-36.7); MEAN CELL VOLUME 92.8 fL (81.5-99.8); MEAN PLATELET VOLUME 8.6 fL (8.7-11.7); PLATELET CLUMPS FLAG 10 (0-99); PLATELET COUNT 220 10^3/uL (150-400); RED BLOOD CELL COUNT 4.86 10^6/uL (4.40-6.38); RED CELL DISTRIBUTION WIDTH 14.5 % (11.5-15.2)
[2016-11-04 04:33] LABS: ANION GAP 11 mEq/L (8-16); CALCIUM 8.4 mg/dL (8.5-10.4); CARBON DIOXIDE 28 mEq/l (22-31); CHLORIDE 103 mEq/L (97-110); CREATININE 0.7 mg/dL (0.7-1.3); GLOMERULAR FILTRATION RATE > 60; GLUCOSE 108 mg/dL (70-100); MAGNESIUM 1.7 mg/dL (1.6-2.3); SODIUM 142 mEq/L (134-144); SPECIMEN HEMOLYSIS 110
[2016-11-04] MEDS ORDERED: amLODIPine BESYLATE 5 MG TAB PO ONE (06:00)
[2016-11-04] MEDS ORDERED: VANCOMYCIN 1.5 GM in D5W 250 ML IV SCH (07:00)
[2016-11-04] MEDS ORDERED: hydrALAZINE 20 MG/ML VIAL IVP ONE (07:00)
[2016-11-04] MEDS ORDERED: ERTAPENEM 1 GM in NS 100 ML IV SCH (09:00)
[2016-11-04] MEDS: METOPROLOL TARTRATE 50 MG TAB PO SCH ×2 (09:57→21:28)
[2016-11-04] MEDS: LISINOPRIL 20 MG TAB PO SCH (09:58)
[2016-11-04] MEDS: ENOXAPARIN 40 MG/0.4 ML SYR SC SCH (10:08)
--- NOTE | 2016-11-04 10:53 | WOCRNPDOC ---
[facility] Advanced Assessment Note - Skin Integrity Problem, Advanced Assess Right Second Toe Dressing Type: Open to Air Exudate Amount: None Exudate Characteristic(s): None Ada Wound Tissue: Erythema, Hot, Swollen Ada Wound Swelling: Mild Wound Bed Constitution: Intact Purulent Blister Site Odor: None Site Measurement - Head-to-Toe Length X Width X Depth (cm): 3.2cmx0.9cmx blister Skin Integrity Problem Comment: Intact, purulent blister noted on dorsal aspect of 2nd toe (previously charted by nursing as 4th toe). Site is taut and mildly fluctuant, w/ swelling, heat, and erythema periwound and extending up through R foot. Patient reports increased pain w/ movement, ambulation, and palpation. Presently being covered w/ Vancomycin for infection. This patient has no need for wound care at this time. Advised heel lift gouger Nikki to re-consult as needed. Right Third Toe Dressing Type: Open to Air Exudate Amount: None Exudate Characteristic(s): None Ada Wound Tissue: Hot, Swollen Ada Wound Swelling: Mild Wound Bed Color: Red Wound Bed Constitution: Smooth Tissue Wound Edges: Epithelizing Site Odor: None Site Measurement - Head-to-Toe Length X Width X Depth (cm): 0.4cmx0.4cmx0.1cm Skin Integrity Problem Comment: Small, shallow lesion noted at the base of patient's 3rd toe. This wound is adjacent to purulent blister on the 2nd toe, and entire R foot is presently warm and swollen. Per patient report, these lesions "come and go," and "pop up" all over his body. He showed me similar lesions on the underside of his R testicle, and on his L upper arm, all presently scabbed and similar in diameter. Uncertain of eitology of these lesions, but sites do not require wound care at this time. Advised heel lift gouger Nikki to reconsult PRN.
[2016-11-04] MEDS ORDERED: LIDOCAINE 1% 2 ML INJ ONE (11:29)
[2016-11-04] MEDS ORDERED: THIAMINE HCL 500 MG in NS 100 ML IV ONE (13:07)
--- NOTE | 2016-11-04 13:23 | GCON ---
[f rep st] CONSULTATION DATE OF CONSULTATION: 11/04/2016 REFERRING PHYSICIAN: Ritchie Pompa MD REASON FOR CONSULTATION: Right 2nd toe cellulitis and multiple other skin lesions. HISTORY OF PRESENT ILLNESS: A 46-year-old male with a past medical history of alcoholism, hypertension and depression, who was admitted overnight due to a suicide attempt. When admitted, patient was noted to have a painful right 2nd toe and multiple nodular/excoriated scattered lesions on the trunk and upper extremities. Today the patient is more coherent and describes approximately a 2 -week period of progressive pain and swelling of his 2nd toe. He says he constantly feels fluctuations between chills and sweats, and that the lesions on his torso and arms spontaneously appear and resolve. He denies specific trauma. [facility]. PAST MEDICAL HISTORY: Diastolic heart failure, alcoholism, folliculitis, hypertension, depression, and PTSD. SOCIAL HISTORY: He is homeless. He admits to using alcohol currently and remote IV drugs, none recently. He has not been sexually active for 4 months. He only has sex with women. ALLERGIES: NKDA. MEDICATIONS: Ertapenem 1 g IV daily started 11/03/2016, vancomycin 1 g started 11/03/2016. He is also on Lovenox 40 subcu daily, hydralazine as needed, labetalol as needed, Zestril 20 mg daily, Lopressor 50 mg twice daily. Vancomycin was dosed at 1.5 IV q.12. FAMILY HISTORY: Positive for diabetes and heart disease. REVIEW OF SYSTEMS: A complete 10-point review of systems was performed and is negative except as mentioned in the HPI. The patient continues to have suicidal ideation, a feeling like he has nothing to live for due to lack of job , lack of family, and homelessness. PHYSICAL EXAM: VITAL SIGNS: Blood pressure is 179/100, heart rate is 98, respiratory rate 16-23, saturation 95% on 2 L. Temperature, has been afebrile throughout the hospital course and is currently 36.8. GENERAL: This is a pleasant male sitting in bed in no acute distress. HEENT: He has muddy sclerae. Otherwise no conjunctival injection. Oropharynx: Poor dentition. Moist mucous membranes. NECK: Supple. No lymphadenopathy. CARDIOVASCULAR: Distant heart sounds, regular rate. CHEST: Clear to auscultation bilaterally. ABDOMEN: Obese, soft, nontender. Bowel sounds are present. : Circumcised phallus. He has a scrotal-round based lesion without surrounding erythema. No tenderness in the inguinal region. EXTREMITIES: His right great 2nd toe is swollen, erythematous with some tracking of erythema on the dorsum of the foot. He also has a tense bulla with underlying purulence. Range of motion of joints was intact but was tender to palpation. SKIN: The patient had scattered 2 cm nodular/excoriated lesions on his trunk and upper extremities in various stages of healing without purulence. NEUROLOGIC: He is alert and oriented x4. Certainly a depressed affect but moving all 4 extremities equally. LABORATORY: White count 16,000. Hematocrit 45, platelets of 220, 76% neutrophils, 10% lymphocytes, 11% monocytes. ESR is 15. CRP 42. Tox screen on admission showed positive alcohol and positive marijuana otherwise was negative. Creatinine initially 1.6, today is 0.7. LFTs have not been performed. IMAGING: A plain film of his foot was performed that showed no bony abnormalities. ASSESSMENT AND PLAN: This is a 46-year-old male with a past medical history of hypertension and diastolic congestive heart failure, who was admitted after a suicide attempt, who was also found to have: 1. Cellulitis of his right 2nd toe. Likely pathogens Staphylococcus or Streptococcus 2. Multiple excoriated lesions on his trunk and arms also likely Staph mediated. RECOMMENDATIONS: 1. His Right 2nd toe was prepped and draped, and 1% lidocaine was applied. A 21-gauge needle was used and approximately 4 cc of purulence was easily aspirated from the bulla on his 2nd toe. No immediate complications were observed. This sample was sent for Gram stain and culture. 2. Continue IV vancomycin as the patient has significant risks for MRSA with recent incarceration and homelessness. 3. Discontinue ertapenem as I doubt this is mediated by gram-negative rods. 4. HIV, hepatitis-C, hepatitis-B and syphilis screening. Add on LFTs to labs 5. may need surgical debridement of his right 2nd toe but will reassess tomorrow after aspirating bulla dry Thank you for this consultation. We will continue to follow on a daily basis. /[id number]/MODL MTDD
[2016-11-04] MEDS: LORazepam 2 MG/ML INJ IVP PRN (14:44)
[2016-11-04] MEDS: VANCOMYCIN 1.25 GM in D5W 250 ML IV SCH ×2 (15:31→21:28)
[2016-11-04 15:59] LABS: ALBUMIN 3.3 g/dL (3.5-5.0); BILIRUBIN,TOTAL 0.6 mg/dL (0.1-1.4); BILIRUBIN-CONJUGATED 0.3 mg/dL (0.0-0.5); BILIRUBIN-UNCONJUGATED 0.3 mg/dL (0.0-1.1); TOTAL PROTEIN 6.4 g/dL (6.3-8.2)
--- NOTE | 2016-11-04 17:00 | HOSPPROG ---
Hospitalist Progress Note Assessment/Plan: * Suicide attempt - overdose -M1 hold * Etoh withdrawal - CIWA protocol * Right 2nd toe cellulitis - suspect MRSA -IV Vanco * Chronic CHF due to DD * HTN - suspect element of untreated essential HTN -metoprolol, lisinopril started by Dr. Pompa -also suspect Etoh withdrawal contributing Subjective: no new complaints. Objective: Vital Signs Temp Pulse Resp BP Pulse Ox 37.0 C 92 20 157/107 H 95 11/04/16 16:00 11/04/16 16:00 11/04/16 16:00 11/04/16 16:00 11/04/16 16:00 Microbiology 11/04/16 12:00 Gram Stain - Final Toe - Aspirate Laboratory Results 11/04/16 04:00 11/04/16 04:00 11/03/16 11/04/16 11/05/16 05:59 05:59 05:59 Intake Total 5000 1000 Output Total 2800 800 Balance 2200 200 PT 13.4 SEC (12.0-15.0) 11/03/16 17:15 INR 1.03 (0.83-1.16) 11/03/16 17:15 Given prn IV hydralazine this am for extreme BP elevation - Physical Exam Constitutional: no apparent distress, appears nourished, not in pain Cardiovascular: regular rate and rhythym, no murmur, rub, or gallop Respiratory: no respiratory distress, no rales or rhonchi, clear to auscultation Gastrointestinal: normoactive bowel sounds, soft, non-tender abdomen, no palpable masses Skin: erythema, induration, rash, No mottled Neurologic: AAOx3, sensation intact bilaterally, other (tremor, diaphorsis) Psychiatric: interacting appropriately, not anxious, not encephalopathic, thought process linear ICD10 Worksheet Patient Problems: Problems Problem Status Diagnosed Alcohol intoxication Acute Chest pain Acute Diabetic foot infection Acute Suicidal ideation Acute
[2016-11-04] MEDS ORDERED: traZODone 100 MG TAB PO PRN (17:02)
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
[2016-11-04] MEDS: chlordiazePOXIDE 25 MG CAP PO PRN ×2 (17:57→21:28)
[2016-11-04] MEDS: QUEtiapine FUMARATE 300 MG TAB PO SCH (21:28)
[2016-11-04] MEDS: LURASIDONE HCL 80 MG TAB PO SCH (21:29)
[2016-11-05] MEDS: VANCOMYCIN 1.25 GM in D5W 250 ML IV SCH ×2 (06:04→15:11)
[2016-11-05 06:06] LABS: ANION GAP 9 mEq/L (8-16); CALCIUM 8.7 mg/dL (8.5-10.4); CARBON DIOXIDE 29 mEq/l (22-31); CHLORIDE 102 mEq/L (97-110); CREATININE 0.9 mg/dL (0.7-1.3); GLOMERULAR FILTRATION RATE > 60; GLUCOSE 96 mg/dL (70-100); POTASSIUM 3.2 mEq/L (3.5-5.2); SODIUM 140 mEq/L (134-144)
[2016-11-05 06:11] LABS: % IMMATURE GRANULYOCYTES 0.4 % (0.0-1.1); ABSOLUTE IMMATURE GRANULOCYTES 0.05 10^3/uL (0.00-0.10); ADD DIFF? NO; ADD MORPH? NO; ADD SCAN? NO; ATYPICAL LYMPHOCYTE FLAG 0 (0-99); FRAGMENT RBC FLAG 0 (0-99); HEMATOCRIT 44.3 % (40.0-51.0); HEMOGLOBIN 15.1 g/dL (13.7-17.5); LEFT SHIFT FLG 10 (0-99); LIPEMIA HEMOLYSIS FLAG 90 (0-99); MEAN CELL HEMOGLOBIN 32.2 pg (27.9-34.1); MEAN CELL HEMOGLOBIN CONCENTR. 34.1 g/dL (32.4-36.7); MEAN CELL VOLUME 94.5 fL (81.5-99.8); MEAN PLATELET VOLUME 8.9 fL (8.7-11.7); PLATELET CLUMPS FLAG 0 (0-99); PLATELET COUNT 175 10^3/uL (150-400); RED BLOOD CELL COUNT 4.69 10^6/uL (4.40-6.38); RED CELL DISTRIBUTION WIDTH 14.5 % (11.5-15.2)
[2016-11-05] MEDS: ENOXAPARIN 40 MG/0.4 ML SYR SC SCH (09:10)
[2016-11-05] MEDS: THIAMINE HCL 500 MG in NS 100 ML IV SCH (09:10)
[2016-11-05] MEDS: SERTRALINE HCL 100 MG TAB PO SCH (09:11)
[2016-11-05] MEDS: LISINOPRIL 20 MG TAB PO SCH (09:11)
[2016-11-05] MEDS: METOPROLOL TARTRATE 50 MG TAB PO SCH ×2 (09:11→21:18)
[2016-11-05] MEDS ORDERED: PROTOCOL POTASSIUM 1 DOSE MISC PRN (10:28)
[2016-11-05] MEDS ORDERED: PROTOCOL K PHOSPHATE 1 DOSE IV PRN (10:28)
[2016-11-05] MEDS ORDERED: PROTOCOL MAGNESIUM 1 DOSE IV PRN (10:28)
[2016-11-05] MEDS ORDERED: PROTOCOL CALCIUM 1 DOSE IV PRN (10:28)
[2016-11-05] MEDS ORDERED: POTASSIUM CL 10 MEQ TAB PO ONE (10:50)
[2016-11-05] MEDS: HYDROCODONE/APAP 5/325 TAB PO PRN ×2 (11:42→21:17)
[2016-11-05] MEDS: chlordiazePOXIDE 25 MG CAP PO PRN ×2 (11:42→21:18)
[2016-11-05 13:59] LABS: HEPATITIS Bs Ab QUANT <5.0 mIU/mL (())
--- NOTE | 2016-11-05 14:25 | PDINTPN ---
Cloth Mender Progress Note Assessment/Plan: Assessment: Right 2nd toe abscess/cellulitis. Growing strep pyogenes. On vancomycin can narrow. Id following. Chronic and acute alcohol abuse. On CIWA protocol. Current CIWA score low. Getting p.r.n. Ativan /Librium. Suicide ideation: On M1 hold through tomorrow. Depression Hypertension: On metoprolol lisinopril plus p.r.n. medications which he is not currently using. DVT prophylaxis: Enoxaparin GI prophylaxis: Eating. Metabolic: Hypokalemia, on replace Plan: Continue present care, Antibiotics. Continue CIWA protocol. If he is felt not to be at risk for suicide he can be transferred to the floor. Will try to get Psychiatry/TLC involved in this decision tomorrow. However, medical issues will likely keep him in the hospital Subjective: sleeping, arousable, responsive. Complains of right foot pain. Otherwise doing okay. Denies shortness of breath, chest pain, abdominal pain. Objective: Vital Signs Temp Pulse Resp BP Pulse Ox 37.2 C 71 15 154/93 H 99 11/05/16 11:49 11/05/16 11:49 11/05/16 11:49 11/05/16 11:49 11/05/16 11:49 Microbiology 11/04/16 12:00 Gram Stain - Final Toe - Aspirate Laboratory Results 11/05/16 05:46 11/05/16 05:46 11/04/16 11/05/16 11/06/16 05:59 05:59 05:59 Intake Total 5000 2760 Output Total 2800 1600 Balance 2200 1160 PT 13.4 SEC (12.0-15.0) 11/03/16 17:15 INR 1.03 (0.83-1.16) 11/03/16 17:15 Laboratory Tests 11/05/16 05:46 Calcium 8.7 Phosphorus 3.8 Magnesium 2.0 Physical Exam - Physical Exam General Appearance: alert, no apparent distress EENT: anisocoria, No PERRL/EOMI Neck: normal inspection ( Large neck) Respiratory: lungs clear, decreased breath sounds ( at bases), No rales, No rhonchi, No wheezing Cardiac/Chest: regular rate, rhythm Abdomen: normal bowel sounds, non-tender, soft Skin: normal color, warm/dry Extremities: other ( right 2nd toe remains tender, erythematous.), No pedal edema Neuro/Psych: no motor/sensory deficits, No cognition abnormalities ( Denies being actively suicidal at this time. Depressed.) ICD10 Worksheet Patient Problems: Problems Problem Status Diagnosed Alcohol intoxication Acute Chest pain Acute Diabetic foot infection Acute Suicidal ideation Acute
--- NOTE | 2016-11-05 14:45 | PCMIDPN ---
Assessment/Plan: Assessment/Plan: 1. Left 2nd toe and foot cellulitis with 2nd toe abscess: - s/p aspiration of fluid involving 2nd toe yesterday. - Cx with Group A strep - Currently on Vanco.Will tailor down to Ancef therapy for now. -Foot xray with no obvious osteo noted. -Will repeat crp. -Will reasses tomorrow and determine course and choice of antbx going forward. -care coordinated with Rn, candle wrapping machine operator team. Maria Del Rosario gonzalez Subjective: Afebrile. Has some throbbing of his left foot. less overall pain. Denies sob, cough, abd pain or diarrhea. Objective: Vital Signs Temp Pulse Resp BP Pulse Ox 37.2 C 71 15 154/93 H 99 11/05/16 11:49 11/05/16 11:49 11/05/16 11:49 11/05/16 11:49 11/05/16 11:49 Microbiology 11/04/16 12:00 Gram Stain - Final Toe - Aspirate Laboratory Results 11/05/16 05:46 11/05/16 05:46 11/04/16 11/05/16 11/06/16 05:59 05:59 05:59 Intake Total 5000 2760 Output Total 2800 1600 Balance 2200 1160 ESR 15 MM/HR (0-15) 11/03/16 22:33 C-Reactive Protein 42.6 mg/L (<10.0) H 11/03/16 22:33 - Physical Exam General Appearance: alert, no apparent distress Respiratory: lungs clear Cardiac/Chest: regular rate, rhythm Extremities: swelling, other (Left foot with mild erythema. left leg with no residual obvious erythema. ) Abdomen: normal bowel sounds, non-tender, soft, No distended Skin: erythema (mild Left foot. left 2nd toe with some maceration. dried blood. ) ICD10 Worksheet Patient Problems: Problems Problem Status Diagnosed Alcohol intoxication Acute Chest pain Acute Diabetic foot infection Acute Suicidal ideation Acute
--- NOTE | 2016-11-05 15:47 | HOSPPROG ---
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 Objective: Vital Signs Temp Pulse Resp BP Pulse Ox 37.2 C 69 14 136/93 H 98 11/05/16 11:49 11/05/16 14:00 11/05/16 14:00 11/05/16 14:00 11/05/16 14:00 Microbiology 11/04/16 12:00 Gram Stain - Final Toe - Aspirate Laboratory Results 11/05/16 05:46 11/05/16 05:46 11/04/16 11/05/16 11/06/16 05:59 05:59 05:59 Intake Total 5000 2760 Output Total 2800 1600 Balance 2200 1160 PT 13.4 SEC (12.0-15.0) 11/03/16 17:15 INR 1.03 (0.83-1.16) 11/03/16 17:15 - Physical Exam Constitutional: no apparent distress, appears nourished, not in pain Cardiovascular: regular rate and rhythym, no murmur, rub, or gallop Respiratory: no respiratory distress, no rales or rhonchi, clear to auscultation Gastrointestinal: normoactive bowel sounds, soft, non-tender abdomen, no palpable masses Skin: no rashes or abrasions, no fluctuance, no induration Neurologic: AAOx3, sensation intact bilaterally Psychiatric: interacting appropriately, not anxious, not encephalopathic, thought process linear ICD10 Worksheet Patient Problems: Problems Problem Status Diagnosed Alcohol intoxication Acute Chest pain Acute Diabetic foot infection Acute Suicidal ideation Acute
[2016-11-05] MEDS: QUEtiapine FUMARATE 300 MG TAB PO SCH (21:18)
[2016-11-05] MEDS: LURASIDONE HCL 80 MG TAB PO SCH (21:18)
[2016-11-06 05:07] LABS: IONIZED CALCIUM 1.14 MMOL/L (1.12-1.30)
[2016-11-06 05:09] LABS: % IMMATURE GRANULYOCYTES 0.7 % (0.0-1.1); ABSOLUTE IMMATURE GRANULOCYTES 0.07 10^3/uL (0.00-0.10); ADD DIFF? NO; ADD MORPH? NO; ADD SCAN? NO; ATYPICAL LYMPHOCYTE FLAG 10 (0-99); FRAGMENT RBC FLAG 0 (0-99); HEMATOCRIT 44.7 % (40.0-51.0); LEFT SHIFT FLG 0 (0-99); LIPEMIA HEMOLYSIS FLAG 80 (0-99); MEAN CELL HEMOGLOBIN 32.6 pg (27.9-34.1); MEAN CELL HEMOGLOBIN CONCENTR. 33.6 g/dL (32.4-36.7); MEAN CELL VOLUME 97.2 fL (81.5-99.8); MEAN PLATELET VOLUME 8.8 fL (8.7-11.7); PLATELET CLUMPS FLAG 20 (0-99); PLATELET COUNT 164 10^3/uL (150-400); RED CELL DISTRIBUTION WIDTH 14.5 % (11.5-15.2)
[2016-11-06 05:28] LABS: ANION GAP 7 mEq/L (8-16); C-REACTIVE PROTEIN 54.3 mg/L (<10.0); CALCIUM 8.5 mg/dL (8.5-10.4); CARBON DIOXIDE 30 mEq/l (22-31); CHLORIDE 107 mEq/L (97-110); GLOMERULAR FILTRATION RATE > 60; GLUCOSE 104 mg/dL (70-100); MAGNESIUM 2.1 mg/dL (1.6-2.3); POTASSIUM 3.8 mEq/L (3.5-5.2); SODIUM 144 mEq/L (134-144)
--- NOTE | 2016-11-06 08:24 | PCMIDPN ---
Assessment/Plan: Assessment/Plan: 1. Left 2nd toe and foot cellulitis with 2nd toe abscess: - s/p aspiration of fluid involving 2nd toe on 11/04/16. - Cx with Group A strep - Currently on Ancef therapy. -Foot xray with no obvious osteo noted. -CRP still high. Given focal tenderness at base of 2nd toe with residual edema and erythema, ongoing elevated CRP will check MRI to evaluate for underlying osteomyelitis or abscess. -Continue with IV atbx as above for now further results available. -care coordinated with Rn -REviewed plan of care with patient. Meds Ancef 1g q8- 11/05/16 s/p vanco Subjective: afebrile. c/o right foot pain and 1st and 2nd toe pain still. still with some swelling there as well. Denies sob. come coughing. denies diarrhea. mild left sided abd pain. Objective: Vital Signs Temp Pulse Resp BP Pulse Ox 37.0 C 86 12 142/92 H 99 11/06/16 05:04 11/06/16 05:04 11/06/16 05:04 11/06/16 05:04 11/06/16 05:04 Microbiology 11/04/16 12:00 Gram Stain - Final Toe - Aspirate Laboratory Results 11/06/16 05:00 11/06/16 05:00 11/05/16 11/06/16 11/07/16 05:59 05:59 05:59 Intake Total 2760 800 Output Total 1600 1850 Balance 1160 -1050 ESR 15 MM/HR (0-15) 11/03/16 22:33 C-Reactive Protein 54.3 mg/L (<10.0) H 11/06/16 05:00 - Physical Exam General Appearance: alert, no apparent distress Respiratory: lungs clear Cardiac/Chest: regular rate, rhythm Extremities: swelling Abdomen: normal bowel sounds, soft, tender (left side, intermittent. no guarding. ), No distended Male Genitalia: other (small superficial open wound on scrotum. ) Skin: other (right foot: residual swelling near base of 2nd and 3rd toe. 2nd toe with maceration of overlying skin. purulence noted. mild residual erythema at base of toe as well. tender to palpate at baSe of 2nd toe. warmth appreciated. ) ICD10 Worksheet Patient Problems: Problems Problem Status Diagnosed Alcohol intoxication Acute Chest pain Acute Diabetic foot infection Acute Suicidal ideation Acute
[2016-11-06] MEDS ORDERED: POTASSIUM CL 10 MEQ TAB PO ONE (08:30)
[2016-11-06] MEDS: HYDROCODONE/APAP 5/325 TAB PO PRN ×2 (09:30→19:48)
[2016-11-06] MEDS: SERTRALINE HCL 100 MG TAB PO SCH (09:31)
[2016-11-06] MEDS: LISINOPRIL 20 MG TAB PO SCH (09:32)
[2016-11-06] MEDS: METOPROLOL TARTRATE 50 MG TAB PO SCH ×2 (09:33→19:51)
[2016-11-06] MEDS: ENOXAPARIN 40 MG/0.4 ML SYR SC SCH (09:34)
[2016-11-06] MEDS: THIAMINE HCL 500 MG in NS 100 ML IV SCH (09:35)
--- NOTE | 2016-11-06 14:35 | PDINTPN ---
Manager Of Pmo Progress Note Assessment/Plan: Assessment: Right 2nd toe abscess/cellulitis. Growing strep pyogenes. On ancef. Id following. For MRI to look for osteo/abscess Chronic and acute alcohol abuse. On CIWA, score low. Getting p.r.n. Ativan / Librium. Suicide ideation: On M1 hold through this evening. Denies suicidal ideations at this point. Depression. On antidepressants. Followed by [facility]. Hypertension: Blood pressure is better. On metoprolol and lisinopril, plus p.r.n. medications which he is not currently needing. DVT prophylaxis: Enoxaparin GI prophylaxis: Eating. Metabolic: Hypokalemia, on replace Plan: Continue present care, Antibiotics. Continue CIWA protocol. If he is felt not to be at risk for suicide he can be transferred to the floor. Will try to get Psychiatry/TLC involved in this decision. However, medical issues will likely keep him in the hospital for a few more days Subjective: Doing okay. Feels better. Right foot/toes still painful. Denies shortness of breath or abdominal discomfort. Denies active suicide ideation. Remains depressed. Objective: Vital Signs Temp Pulse Resp BP Pulse Ox 36.9 C 80 14 156/92 H 92 11/06/16 12:00 11/06/16 12:00 11/06/16 12:00 11/06/16 12:00 11/06/16 12:00 Microbiology 11/04/16 12:00 Gram Stain - Final Toe - Aspirate Laboratory Results 11/06/16 05:00 11/06/16 05:00 11/05/16 11/06/16 11/07/16 05:59 05:59 05:59 Intake Total 2760 800 400 Output Total 1600 1850 800 Balance 1160 -1050 -400 PT 13.4 SEC (12.0-15.0) 11/03/16 17:15 INR 1.03 (0.83-1.16) 11/03/16 17:15 Laboratory Tests 11/06/16 05:00 Calcium 8.5 Ionized Calcium 1.14 Phosphorus 4.6 H D Magnesium 2.1 C-Reactive Protein 54.3 H Physical Exam - Physical Exam General Appearance: alert, no apparent distress EENT: other (On room air) Neck: normal inspection Respiratory: lungs clear, normal breath sounds Cardiac/Chest: regular rate, rhythm Abdomen: normal bowel sounds, non-tender, soft Back: Normal inspection Skin: normal color, warm/dry Extremities: other (Right foot looks better, tenderness persists. Decreased erythema and swelling), No pedal edema Neuro/Psych: no motor/sensory deficits, depressed affect, No cognition abnormalities ICD10 Worksheet Patient Problems: Problems Problem Status Diagnosed Alcohol intoxication Acute Chest pain Acute Diabetic foot infection Acute Suicidal ideation Acute
--- NOTE | 2016-11-06 14:56 | HOSPPROG ---
Hospitalist Progress Note Assessment/Plan: * Suicide attempt - overdose -M1 hold expiring today -patient remains suicidal, but no plan while in hospital -keep ICU, restart M1 hold when med stable, or sooner if behaviorally needed * Etoh withdrawal - improving * Right 2nd toe cellulitis with abscess - Group A strep -IV ancef -MRI foot today * Chronic CHF due to DD * HTN - untreated essential HTN -metoprolol, lisinopril * Obesity BMI 38 Subjective: No complaints. Still feels like he will hurt self when he leaves Objective: Vital Signs Temp Pulse Resp BP Pulse Ox 36.9 C 80 14 156/92 H 92 11/06/16 12:00 11/06/16 12:00 11/06/16 12:00 11/06/16 12:00 11/06/16 12:00 Microbiology 11/04/16 12:00 Gram Stain - Final Toe - Aspirate Laboratory Results 11/06/16 05:00 11/06/16 05:00 11/05/16 11/06/16 11/07/16 05:59 05:59 05:59 Intake Total 2760 800 400 Output Total 1600 1850 800 Balance 1160 -1050 -400 PT 13.4 SEC (12.0-15.0) 11/03/16 17:15 INR 1.03 (0.83-1.16) 11/03/16 17:15 - Physical Exam Constitutional: no apparent distress, appears nourished, not in pain Cardiovascular: regular rate and rhythym, no murmur, rub, or gallop Respiratory: no respiratory distress, no rales or rhonchi, clear to auscultation Skin: no rashes or abrasions, no fluctuance, no induration Musculoskeletal: full muscle strength, joint tenderness, pain with ROM, muscular tenderness, other (right foot very tender to slight touch on dorsum) Neurologic: AAOx3, sensation intact bilaterally ICD10 Worksheet Patient Problems: Problems Problem Status Diagnosed Alcohol intoxication Acute Chest pain Acute Diabetic foot infection Acute Suicidal ideation Acute
[2016-11-06] MEDS ORDERED: GADOBUTROL 10 ML VIAL IVP ONE (16:35)
[2016-11-06] MEDS: LURASIDONE HCL 80 MG TAB PO SCH (19:50)
[2016-11-06] MEDS: QUEtiapine FUMARATE 300 MG TAB PO SCH (19:51)
[2016-11-06] MEDS: chlordiazePOXIDE 25 MG CAP PO PRN (19:54)
[2016-11-06] MEDS: NICOTINE 14 MG/24 HR PATCH TD SCH (23:04)
[2016-11-07 05:36] LABS: IONIZED CALCIUM 1.17 MMOL/L (1.12-1.30)
[2016-11-07 05:51] LABS: % IMMATURE GRANULYOCYTES 0.5 % (0.0-1.1); ABSOLUTE IMMATURE GRANULOCYTES 0.04 10^3/uL (0.00-0.10); ADD DIFF? NO; ADD MORPH? NO; ADD SCAN? NO; ATYPICAL LYMPHOCYTE FLAG 20 (0-99); FRAGMENT RBC FLAG 0 (0-99); HEMATOCRIT 43.2 % (40.0-51.0); HEMOGLOBIN 14.4 g/dL (13.7-17.5); LEFT SHIFT FLG 0 (0-99); LIPEMIA HEMOLYSIS FLAG 80 (0-99); MEAN CELL HEMOGLOBIN 32.7 pg (27.9-34.1); MEAN CELL HEMOGLOBIN CONCENTR. 33.3 g/dL (32.4-36.7); MEAN CELL VOLUME 98.2 fL (81.5-99.8); MEAN PLATELET VOLUME 8.8 fL (8.7-11.7); PLATELET CLUMPS FLAG 30 (0-99); PLATELET COUNT 154 10^3/uL (150-400); RED CELL DISTRIBUTION WIDTH 14.3 % (11.5-15.2)
[2016-11-07 05:52] LABS: ANION GAP 5 mEq/L (8-16); CALCIUM 8.4 mg/dL (8.5-10.4); CARBON DIOXIDE 28 mEq/l (22-31); CHLORIDE 108 mEq/L (97-110); CREATININE 0.9 mg/dL (0.7-1.3); GLOMERULAR FILTRATION RATE > 60; GLUCOSE 103 mg/dL (70-100); POTASSIUM 4.1 mEq/L (3.5-5.2); SODIUM 141 mEq/L (134-144)
[2016-11-07] MEDS: METOPROLOL TARTRATE 50 MG TAB PO SCH ×2 (08:42→20:19)
[2016-11-07] MEDS: LISINOPRIL 20 MG TAB PO SCH (08:42)
[2016-11-07] MEDS: ENOXAPARIN 40 MG/0.4 ML SYR SC SCH (08:43)
[2016-11-07] MEDS: THIAMINE HCL 100 MG TAB PO SCH (08:43)
[2016-11-07] MEDS: SERTRALINE HCL 100 MG TAB PO SCH (08:43)
[2016-11-07] MEDS: HYDROCODONE/APAP 5/325 TAB PO PRN ×2 (08:50→17:06)
--- NOTE | 2016-11-07 09:01 | MR ---
MRI of the Right Forefoot, Without and With Contrast History: Right second toe cellulitis. Possible abscess. Pain. Technique: Precontrast axial, sagittal, and coronal MR sequences of the right forefoot are obtained. After intravenous administration of 10 mL Gadavist, postcontrast enhanced imaging is performed in 3 p lanes. Findings: Extensive edema is present throughout the entirety of the right forefoot, located within th e subcutaneous tissues and also within the plantar musculature, most pronounced around the second met atarsal. Findings are compatible with cellulitis, associated with diffuse nonfocal contrast enhanceme nt. No discrete fluid collection is identified to suggest abscess. Marrow signal intensity of the met atarsals and phalanges is within normal limits without evidence of osteomyelitis. Moderate degenerative changes are incidentally noted at the first metatarsophalangeal joint with join t space narrowing and subchondral bone marrow edema, most pronounced within the first metatarsal head . Impression: 1. Extensive cellulitis throughout the right forefoot, without discrete abscess or evidence of osteom yelitis. 2. Degenerative arthropathy first metatarsophalangeal joint.
--- NOTE | 2016-11-07 09:15 | PDINTPN ---
Cartography Teacher Progress Note Assessment/Plan: Assessment/Plan: * Right 2nd toe/foot abscess/cellulitis. Growing strep pyogenes. On ancef. Id following. -MRI shows extensive cellulitis * Chronic and acute alcohol abuse. On CIWA, score low. Getting p.r.n. Ativan / Librium. * Suicide ideation: On M1 hold through this evening. Denies suicidal ideations at this point. * Depression. On antidepressants. Followed by [facility]. * Hypertension: Blood pressure is better. On metoprolol and lisinopril, plus p.r.n. medications which he is not currently needing. * DVT prophylaxis: Enoxaparin * GI prophylaxis: Eating. * Metabolic: Hypokalemia, on replace Subjective: Resting comfortably Objective: Vital Signs Temp Pulse Resp BP Pulse Ox 36.7 C 81 12 137/100 H 99 11/07/16 08:00 11/07/16 08:42 11/07/16 08:00 11/07/16 08:42 11/07/16 08:00 Microbiology 11/04/16 12:00 Gram Stain - Final Toe - Aspirate Laboratory Results 11/07/16 05:15 11/07/16 05:15 11/06/16 11/07/16 11/08/16 05:59 05:59 05:59 Intake Total 800 3135 Output Total 1850 1500 Balance -1050 1635 PT 13.4 SEC (12.0-15.0) 11/03/16 17:15 INR 1.03 (0.83-1.16) 11/03/16 17:15 Physical Exam - Physical Exam General Appearance: WD/WN, alert, no apparent distress EENT: PERRL/EOMI, normal ENT inspection, pharynx normal, TMs normal Neck: non-tender, full range of motion, supple, normal inspection Respiratory: chest non-tender, lungs clear, normal breath sounds Cardiac/Chest: normal peripheral pulses, regular rate, rhythm Peripheral Pulses: 2+: carotid (R), carotid (L), femoral (R), femoral (L), dorsalis-pedis (R), dorsalis-pedis (L) Abdomen: normal bowel sounds, non-tender, soft Male Genitalia: deferred Rectal: deferred Skin: normal color, warm/dry ICD10 Worksheet Patient Problems: Problems Problem Status Diagnosed Alcohol intoxication Acute Chest pain Acute Diabetic foot infection Acute Suicidal ideation Acute
[2016-11-07] MEDS: NICOTINE 14 MG/24 HR PATCH TD SCH (09:20)
--- NOTE | 2016-11-07 11:45 | PCMIDPN ---
Assessment/Plan: Assessment: Left 2nd toe cellulitis with abscess. Group a strep on culture. Stable on Ancef 1 g IV q.8 hours. Blood cultures remain negative. Plan to continue the Ancef for now with likely change to oral antibiotics once soft tissue improves a bit further. Plan: 1. Continue Ancef. 2. Follow appearance of foot and toe. Subjective: Patient states that he is feeling better. Notes that the toe is looking improved. No new complaints. Objective: Cefazolin #2 Vital Signs Temp Pulse Resp BP Pulse Ox 36.7 C 81 12 137/100 H 99 11/07/16 08:00 11/07/16 08:42 11/07/16 08:00 11/07/16 08:42 11/07/16 08:00 Microbiology 11/04/16 12:00 Gram Stain - Final Toe - Aspirate Laboratory Results 11/07/16 05:15 11/07/16 05:15 11/06/16 11/07/16 11/08/16 05:59 05:59 05:59 Intake Total 800 3135 Output Total 1850 1500 Balance -1050 1635 ESR 15 MM/HR (0-15) 11/03/16 22:33 C-Reactive Protein 54.3 mg/L (<10.0) H 11/06/16 05:00 - Physical Exam General Appearance: WD/WN, alert, no apparent distress, non-toxic Respiratory: lungs clear, normal breath sounds, No respiratory distress Cardiac/Chest: regular rate, rhythm, No tachycardia Extremities: No non-tender, No normal inspection Skin: normal color, warm/dry, No rash Neuro/Psych: alert, normal mood/affect, oriented x 3 ICD10 Worksheet Patient Problems: Problems Problem Status Diagnosed Alcohol intoxication Acute Chest pain Acute Diabetic foot infection Acute Suicidal ideation Acute
--- NOTE | 2016-11-07 13:27 | HOSPPROG ---
Hospitalist Progress Note Assessment/Plan: * Suicide attempt - overdose -still suicidal - re-instate M1 hold when approaching discharge * Etoh withdrawal - resolved * Right 2nd toe cellulitis with abscess - Group A strep -IV ancef -MRI foot - no osteo or abscess -hopefully change to Po abx for discharge * Chronic CHF due to DD * HTN - untreated essential HTN -metoprolol, lisinopril * Obesity BMI 38 Subjective: No new complaints. Objective: Vital Signs Temp Pulse Resp BP Pulse Ox 36.7 C 81 12 137/100 H 99 11/07/16 08:00 11/07/16 08:42 11/07/16 08:00 11/07/16 08:42 11/07/16 08:00 Microbiology 11/04/16 12:00 Gram Stain - Final Toe - Aspirate Laboratory Results 11/07/16 05:15 11/07/16 05:15 11/06/16 11/07/16 11/08/16 05:59 05:59 05:59 Intake Total 800 3135 Output Total 1850 1500 Balance -1050 1635 PT 13.4 SEC (12.0-15.0) 11/03/16 17:15 INR 1.03 (0.83-1.16) 11/03/16 17:15 - Physical Exam Constitutional: no apparent distress, appears nourished, not in pain Cardiovascular: regular rate and rhythym, no murmur, rub, or gallop Respiratory: no respiratory distress, no rales or rhonchi, clear to auscultation Gastrointestinal: normoactive bowel sounds, soft, non-tender abdomen, no palpable masses Skin: other (decreased erythema to foot, still quite tender over dorsum) Neurologic: AAOx3, sensation intact bilaterally Psychiatric: interacting appropriately, not anxious, not encephalopathic, thought process linear ICD10 Worksheet Patient Problems: Problems Problem Status Diagnosed Alcohol intoxication Acute Chest pain Acute Diabetic foot infection Acute Suicidal ideation Acute
[2016-11-07] MEDS: hydrALAZINE 20 MG/ML VIAL IVP PRN (18:33)
[2016-11-07] MEDS: LURASIDONE HCL 80 MG TAB PO SCH (20:19)
[2016-11-07] MEDS: QUEtiapine FUMARATE 300 MG TAB PO SCH (20:25)
[2016-11-07] MEDS: LORazepam 2 MG/ML INJ IVP PRN (20:25)
[2016-11-07 20:44] LABS: POTASSIUM 3.8 mEq/L (3.5-5.2)
[2016-11-07] MEDS ORDERED: POTASSIUM CL 10 MEQ TAB PO ONE (20:59)
[2016-11-08 06:46] LABS: POTASSIUM 4.7 mEq/L (3.5-5.2)
[2016-11-08] MEDS: LISINOPRIL 20 MG TAB PO SCH (08:20)
[2016-11-08] MEDS: METOPROLOL TARTRATE 50 MG TAB PO SCH ×2 (08:20→20:42)
[2016-11-08] MEDS: SERTRALINE HCL 100 MG TAB PO SCH (08:22)
[2016-11-08] MEDS: THIAMINE HCL 100 MG TAB PO SCH (08:23)
[2016-11-08] MEDS: NICOTINE 14 MG/24 HR PATCH TD SCH (08:23)
[2016-11-08] MEDS: ENOXAPARIN 40 MG/0.4 ML SYR SC SCH (08:23)
--- NOTE | 2016-11-08 09:38 | PDINTPN ---
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 Growing strep pyogenes. On ancef. Id following. -MRI shows extensive cellulitis * Chronic and acute alcohol abuse. On CIWA, score low. Getting p.r.n. Ativan / Librium. * Suicide ideation: M1 hold . * Depression. On antidepressants. Followed by [facility]. * Hypertension: Blood pressure is better. On metoprolol and lisinopril, plus p.r.n. medications which he is not currently needing. * DVT prophylaxis: Enoxaparin * GI prophylaxis: Eating. * Metabolic: Hypokalemia, on replace Subjective: Resting comfortably Objective: Vital Signs Temp Pulse Resp BP Pulse Ox 36.9 C 75 18 169/116 H 97 11/08/16 08:00 11/08/16 08:00 11/08/16 08:00 11/08/16 08:00 11/08/16 08:00 Microbiology 11/04/16 12:00 Gram Stain - Final Toe - Aspirate Laboratory Results 11/07/16 05:15 11/08/16 05:40 11/07/16 11/08/16 11/09/16 05:59 05:59 05:59 Intake Total 3135 2000 Output Total 1500 1750 Balance 1635 250 PT 13.4 SEC (12.0-15.0) 11/03/16 17:15 INR 1.03 (0.83-1.16) 11/03/16 17:15 Laboratory Results 11/07/16 05:15 11/08/16 05:40 11/08/16 05:40 Potassium 4.7 mEq/L mEq/L (3.5 - 5.2) Specimen Hemolysis 130 11/04/16 12:00 Gram Stain - Final Toe - Aspirate Anaerobic Culture - Preliminary Streptococcus Pyogenes Grp A Physical Exam - Physical Exam General Appearance: WD/WN, alert, no apparent distress EENT: PERRL/EOMI, normal ENT inspection, pharynx normal, TMs normal Neck: non-tender, full range of motion, supple, normal inspection Respiratory: prolonged expiration, No respiratory distress, No stridor, No wheezing Cardiac/Chest: normal peripheral pulses, regular rate, rhythm Peripheral Pulses: 2+: carotid (R), carotid (L), femoral (R), femoral (L), dorsalis-pedis (R), dorsalis-pedis (L) Abdomen: normal bowel sounds, non-tender, soft Male Genitalia: deferred Rectal: deferred Skin: normal color, warm/dry ICD10 Worksheet Patient Problems: Problems Problem Status Onset Alcohol intoxication Acute Diabetic foot infection Acute Suicidal ideation Acute Chest pain Acute
[2016-11-08] MEDS ORDERED: LISINOPRIL 20 MG TAB PO SCH (12:31)
--- NOTE | 2016-11-08 13:39 | PCMIDPN ---
Assessment/Plan: right 2nd toe cellulitis and abscess with culture showing group a strep. Significant improvement since my exam at the end of last week but still quite tender with mild erythema. MRI still showed extensive cellulitis but no bone or joint involvement. Still needs another day or 2 of IV therapy -- Continue monitoring clinical course -- elevate right lower extremity Meds, antibiotic #4 Ancef 1g q8- 11/05/16 s/p vanco labs: HIV, hepatitis- B and hepatitis-C screen were negative Subjective: patient is frustrated because of plans to discharge to the Street Objective: Vital Signs Temp Pulse Resp BP Pulse Ox 36.9 C 75 18 169/116 H 97 11/08/16 08:00 11/08/16 08:00 11/08/16 08:00 11/08/16 08:00 11/08/16 08:00 Microbiology 11/04/16 12:00 Gram Stain - Final Toe - Aspirate Laboratory Results 11/07/16 05:15 11/08/16 05:40 11/07/16 11/08/16 11/09/16 05:59 05:59 05:59 Intake Total 3135 2000 1000 Output Total 1500 1750 1200 Balance 1635 250 -200 ESR 15 MM/HR (0-15) 11/03/16 22:33 C-Reactive Protein 54.3 mg/L (<10.0) H 11/06/16 05:00 - Physical Exam General Appearance: alert, no apparent distress Respiratory: lungs clear Neck: supple Cardiac/Chest: regular rate, rhythm Extremities: swelling ( 2nd toe and dorsum of the foot ,but improved), erythema ( right 2nd and 3rd toe and on dorsum but much improved) Abdomen: non-tender Skin: other ( scattered round scabs on lower torso arms and upper legs are overall improved) Neuro/Psych: alert, oriented x 3, depressed affect ICD10 Worksheet Patient Problems: Problems Problem Status Onset Alcohol intoxication Acute Diabetic foot infection Acute Suicidal ideation Acute Chest pain Acute
--- NOTE | 2016-11-08 15:10 | HOSPPROG ---
Hospitalist Progress Note Assessment/Plan: * Suicide attempt - overdose -still suicidal - re-instate M1 hold * Etoh withdrawal - resolved * Right 2nd toe cellulitis with abscess - Group A strep -IV ancef -MRI foot - no osteo or abscess -hopefully change to Po abx for discharge - 1-2 days * Chronic CHF due to DD * HTN - untreated essential HTN -metoprolol, lisinopril * Obesity BMI 38 Subjective: Seen by Kristen Maxwell who felt patient was not actively suicidal and could transfer to floor. When hearing this, patient got very upset stating that he was actually still very suicidal and very worried for himself if he were to discharge. Knows he will fall immediately into same condition. Objective: Vital Signs Temp Pulse Resp BP Pulse Ox 36.9 C 75 18 169/116 H 97 11/08/16 08:00 11/08/16 08:00 11/08/16 08:00 11/08/16 08:00 11/08/16 08:00 Microbiology 11/04/16 12:00 Gram Stain - Final Toe - Aspirate Laboratory Results 11/07/16 05:15 11/08/16 05:40 11/07/16 11/08/16 11/09/16 05:59 05:59 05:59 Intake Total 3135 2000 1000 Output Total 1500 1750 1200 Balance 1635 250 -200 PT 13.4 SEC (12.0-15.0) 11/03/16 17:15 INR 1.03 (0.83-1.16) 11/03/16 17:15 - Physical Exam Constitutional: no apparent distress, appears nourished, not in pain Cardiovascular: regular rate and rhythym, no murmur, rub, or gallop Respiratory: no respiratory distress, no rales or rhonchi, clear to auscultation Gastrointestinal: normoactive bowel sounds, soft, non-tender abdomen, no palpable masses Skin: other (less erythema, fluctuance and pain) Neurologic: AAOx3, sensation intact bilaterally Psychiatric: interacting appropriately, not encephalopathic, thought process linear, anxious, depressed, agitated ICD10 Worksheet Patient Problems: Problems Problem Status Onset Alcohol intoxication Acute Diabetic foot infection Acute Suicidal ideation Acute Chest pain Acute
[2016-11-08] MEDS: hydrALAZINE 20 MG/ML VIAL IVP PRN (15:28)
[2016-11-08] MEDS ORDERED: LISINOPRIL 20 MG TAB PO ONE (16:30)
[2016-11-08] MEDS: LABETALOL HCL 5 MG/ML 20 ML MDV IVP PRN ×2 (17:53→18:37)
[2016-11-08] MEDS: ACETAMINOPHEN 325 MG TAB PO PRN (17:53)
[2016-11-08] MEDS: LURASIDONE HCL 80 MG TAB PO SCH (20:42)
[2016-11-08] MEDS: QUEtiapine FUMARATE 300 MG TAB PO SCH (20:42)
[2016-11-08] MEDS: LORazepam 2 MG/ML INJ IVP PRN (20:42)
[2016-11-09] MEDS: LABETALOL HCL 5 MG/ML 20 ML MDV IVP PRN (01:29)
[2016-11-09] MEDS: NICOTINE 14 MG/24 HR PATCH TD SCH (07:59)
[2016-11-09] MEDS: ENOXAPARIN 40 MG/0.4 ML SYR SC SCH (07:59)
[2016-11-09] MEDS: METOPROLOL TARTRATE 50 MG TAB PO SCH ×3 (08:00→21:37)
[2016-11-09] MEDS: SERTRALINE HCL 100 MG TAB PO SCH (08:00)
[2016-11-09] MEDS: THIAMINE HCL 100 MG TAB PO SCH (08:00)
--- NOTE | 2016-11-09 09:27 | PDINTPN ---
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 Growing strep pyogenes. On ancef. Id following. Improved -MRI shows extensive cellulitis * Chronic and acute alcohol abuse. On CIWA, score low. Getting p.r.n. Ativan / Librium. * Suicide ideation: M1 hold . * Depression. On antidepressants. Followed by [facility]. * Hypertension: Blood pressure is better. On metoprolol and lisinopril, plus p.r.n. medications which he is not currently needing. * DVT prophylaxis: Enoxaparin * GI prophylaxis: Eating. * Metabolic: Hypokalemia, on replace Subjective: Resting comfortably. No pain Objective: Vital Signs Temp Pulse Resp BP Pulse Ox 36.8 C 75 20 161/110 H 91 L 11/09/16 07:51 11/09/16 07:51 11/09/16 07:51 11/09/16 07:51 11/09/16 07:51 Microbiology 11/03/16 18:30 Blood Culture - Final Blood 11/04/16 12:00 Gram Stain - Final Toe - Aspirate Laboratory Results 11/07/16 05:15 11/08/16 05:40 11/08/16 11/09/16 11/10/16 05:59 05:59 05:59 Intake Total 2000 2600 Output Total 1750 4450 Balance 250 -1850 PT 13.4 SEC (12.0-15.0) 11/03/16 17:15 INR 1.03 (0.83-1.16) 11/03/16 17:15 Laboratory Results 11/07/16 05:15 11/08/16 05:40 11/04/16 12:00 Gram Stain - Final Toe - Aspirate Anaerobic Culture - Preliminary Streptococcus Pyogenes Grp A Physical Exam - Physical Exam General Appearance: WD/WN, alert, no apparent distress EENT: PERRL/EOMI Neck: non-tender, full range of motion, supple, normal inspection Respiratory: chest non-tender, lungs clear, normal breath sounds Cardiac/Chest: normal peripheral pulses, regular rate, rhythm Peripheral Pulses: 2+: carotid (R), carotid (L), femoral (R), femoral (L), dorsalis-pedis (R), dorsalis-pedis (L) Abdomen: normal bowel sounds, non-tender, soft Male Genitalia: deferred Rectal: deferred Skin: normal color, warm/dry Neuro/Psych: no motor/sensory deficits, alert, normal mood/affect, oriented x 3 ICD10 Worksheet Patient Problems: Problems Problem Status Onset Alcohol intoxication Acute Diabetic foot infection Acute Suicidal ideation Acute Chest pain Acute
--- NOTE | 2016-11-09 10:22 | PCMIDPN ---
Assessment/Plan: right 2nd toe cellulitis and abscess with culture showing group a strep. MRI still showed extensive cellulitis but no bone or joint involvement. Continued clinical improvement, okay to transition to p.o. antibiotics today --okay to complete therapy with Keflex 500 mg 4 times daily for 9 more days --DC to inpatient psych okay from ID standpoint Meds, antibiotic #5 Ancef 1g q8- 11/05/16 s/p vanco labs: HIV, hepatitis- B and hepatitis-C screen were negative Subjective: Patient feels less pain in his right 2nd toe Objective: Vital Signs Temp Pulse Resp BP Pulse Ox 36.8 C 75 20 161/110 H 91 L 11/09/16 07:51 11/09/16 07:51 11/09/16 07:51 11/09/16 07:51 11/09/16 07:51 Microbiology 11/03/16 18:30 Blood Culture - Final Blood 11/04/16 12:00 Gram Stain - Final Toe - Aspirate Laboratory Results 11/07/16 05:15 11/08/16 05:40 11/08/16 11/09/16 11/10/16 05:59 05:59 05:59 Intake Total 2000 2600 Output Total 1750 4450 Balance 250 -1850 ESR 15 MM/HR (0-15) 11/03/16 22:33 C-Reactive Protein 54.3 mg/L (<10.0) H 11/06/16 05:00 - Physical Exam General Appearance: alert, no apparent distress Respiratory: No respiratory distress, No accessory muscle use Extremities: swelling (Mild swelling persist of 2nd, 3rd and dorsum of the foot but significantly improved), erythema (Right: 2nd toe faint erythema, also faint erythema on the dorsum ), other (Right: Mild tenderness to palpation of the 2nd toe and dorsum of the foot) Peripheral Pulses: 2+: dorsalis-pedis (R), dorsalis-pedis (L) Skin: No rash Neuro/Psych: alert, depressed affect ICD10 Worksheet Patient Problems: Problems Problem Status Onset Alcohol intoxication Acute Diabetic foot infection Acute Suicidal ideation Acute Chest pain Acute
[2016-11-09] MEDS ORDERED: amLODIPine BESYLATE 5 MG TAB PO SCH (11:00)
[2016-11-09] MEDS ORDERED: HYDROCHLOROTHIAZIDE 25 MG TAB PO SCH (13:30)
--- NOTE | 2016-11-09 14:02 | PDIAF ---
- Diagnosis Diagnosis: foot infection Code Status: Full Code - Medication Management Discharge Medications: Medications to Continue on Transfer Lurasidone HCl [Latuda] 80 mg PO HS 11/04/16 [Last Taken Unknown] QUEtiapine FUMARATE [Seroquel 300mg (*)] 300 mg PO HS 11/04/16 [Last Taken Unknown] Sertraline HCl [Zoloft 100mg (*)] 150 mg PO DAILY 11/04/16 [Last Taken Unknown] traZODone [traZODONE 100MG (*)] 50 - 200 mg PO HS PRN 11/04/16 [Last Taken Unknown] Cephalexin [Keflex (*)] 500 mg PO Q6HRS #36 cap 11/09/16 [Last Taken Unknown] Hydrochlorothiazide [HCTZ (*)] 25 mg PO DAILY #30 tab 11/09/16 [Last Taken Unknown] Lisinopril [Zestril 40 mg (*)] 40 mg PO DAILY #30 tab 11/09/16 [Last Taken Unknown] Metoprolol Tartrate [Lopressor 50 mg (*)] 50 mg PO BID #60 tab 11/09/16 [Last Taken Unknown] Finishing Trimmer Antibiotics: 9 more days Keflex then stop Discharge Medications: Refer to the Discharge Home Medication list for PRN reason. - Orders Diet Recommendation: no restrictions on diet - Follow Up Care Current Providers and Referrals: [place],. [Primary Care Provider] - As per Instructions
[2016-11-09 15:05] VITALS: TEMP 99.1
[2016-11-09] MEDS: ACETAMINOPHEN 325 MG TAB PO PRN (16:07)
[2016-11-09] MEDS: CEPHALEXIN 500 MG CAP PO SCH (17:21)
[2016-11-09] MEDS ORDERED: IBUPROFEN 600 MG TAB PO ONE (18:30)
[2016-11-09] MEDS ORDERED: PNEUMOCOCCAL 0.5ML VACCINE VIAL IM ONE (20:25)
[2016-11-09] MEDS ORDERED: LORazepam 1 MG TAB PO PRN (20:58)
[2016-11-09] MEDS: LURASIDONE HCL 80 MG TAB PO SCH ×2 (21:27→21:37)
[2016-11-09] MEDS: QUEtiapine FUMARATE 300 MG TAB PO SCH ×2 (21:27→21:37)
[2016-11-09 21:37] VITALS: BP 165/110
--- NOTE | 2016-11-09 23:05 | GDS ---
[f rep st] DISCHARGE SUMMARY DISCHARGE DIAGNOSES: 1. Suicide attempt with ongoing suicidal ideation. 2. Alcohol withdrawal. 3. Group A strep, right 2nd toe cellulitis with abscess. 4. Chronic congestive heart failure due to diastolic dysfunction and uncontrolled hypertension. 5. Severe hypertension due to untreated essential hypertension. 6. Obesity, body mass index 38. HISTORY: The patient is a 46-year-old male who presented after an overdose with suicidal attempt. He is also a heavy drinker and underwent alcohol withdrawal. Upon presentation, he was found to hav e a significant infection of his right foot. His 2nd toe has a small abscess that was drained at [facility], and he had a cellulitis extending up his foot to his lower leg. Culture from the [facility] w a group A strep. He was seen here in consultation with ID. He was slow to resolve on IV Ancef bu t finally has improved and will discharge on a course of oral Keflex. We did do an MRI of his foot, and it was consistent with cellulitis without any evidence of osteomyelitis or abscess. His blood pressures were very high. Looking at his past hospitalizations, he has been discharged on blood pressure medications in the past; however, he has not taken them. We have up-titrated his bl ood pressure medications to include lisinopril and metoprolol. I will now add hydrochlorothiazide. He needs close outpatient followup to continue to manage his essential hypertension. He was comple tely asymptomatic with this. If he does go to inpatient psych, he should be followed closely for on going blood pressure control there. His initial M1 hold did due to his prolonged stay for medical needs. Toward the end of his h ospitalization, he continued to express ongoing suicidal ideation, so another M1 hold was initiated. He is on an M1 hold at this time, and he is medically cleared for discharge. We await psychiatric evaluation to see whether or not he will be discharged to inpatient psychiatry versus discharged [facility] outpatient followup. DISCHARGE MEDICATIONS: Please see computerized record for full detailed list. New medications: 1. Keflex 500 mg p.o. every 6 hours for 9 more days. 2. Hydrochlorothiazide 25 mg p.o. daily. 3. Metoprolol 50 mg p.o. b.i.d. 4. Lisinopril 40 mg p.o. daily. ADDITIONAL DISCHARGE INSTRUCTIONS: 1. Close outpatient followup for ongoing management of hypertension. 2. Currently on an M1 hold, await psychiatric evaluation to determine disposition to inpatient ps h versus discharge with outpatient followup at [facility]. Greater than 30 minutes' time was spent arranging this discharge. Patient was seen and examined by me on the day of discharge. /[id number]/MODL
[2016-11-10 01:32] VITALS: PULSE 90; RESP 15; O2SAT 90
[2016-11-10] MEDS: CEPHALEXIN 500 MG CAP PO SCH (01:34)
== END 2016-11-10 03:35 | DRG 880 ==
LOC: EEVIPCON 18:25 → F2N 21:30
PROVIDERS: ADMIT Family Medicine; ATTEND Internal Medicine
PROC: HZ2ZZZZ Detoxification Services for Substance Abuse Treatment (ICD-10-PCS; 2016-11-03)
PROC: 0J9Q3ZX Drainage of Right Foot Subcutaneous Tissue and Fascia, Percutaneous Approach, Diagnostic (ICD-10-PCS; principal; 2016-11-04)
DX: R45.851 Suicidal ideations (principal); F12.929 Cannabis use, unspecified with intoxication, unspecified; F10.221 Alcohol dependence with intoxication delirium; F10.230 Alcohol dependence with withdrawal, uncomplicated; L03.115 Cellulitis of right lower limb; L02.611 Cutaneous abscess of right foot; B95.4 Other streptococcus as the cause of diseases classified elsewhere; E87.6 Hypokalemia; F32.9 Major depressive disorder, single episode, unspecified; I11.0 Hypertensive heart disease with heart failure; I50.32 Chronic diastolic (congestive) heart failure; Z59.0 Homelessness; E66.09 Other obesity due to excess calories; Z68.38 Body mass index [BMI] 38.0-38.9, adult
CPT/HCPCS: 80305; 82947-QW; 86704-90; 86708-90; 86709-90; 96365; 96366; 97161-GP; 97165-GO; 97535-GO; A9585; G0009; G0472; G0480; J0360; J0690; J1335; J1650; J2310; J3370; J3411; J3490

== ENCOUNTER 2016-12-07 08:37 | Emergency (ER) | payer MEDICAID ==
--- NOTE | 2016-12-07 08:40 | EDPHY ---
H & P Time Seen by Provider: 12/07/16 08:40 HPI/ROS: CHIEF COMPLAINT: Chest pain HISTORY OF PRESENT ILLNESS: Patient arrives by EMS after having ingested a bottle of whiskey complaining of chest pain. Patient has difficulty relating the exact time. States he was having left- sided chest pain but can't relate alleviating or exacerbating factors. He says he felt his heart was pounding. Not associated with vomiting or short of breath , does have a little bit of a nonproductive cough. REVIEW OF SYSTEMS: Eye: no change in vision ENT: no sore throat Cardiac: HPI no syncope Pulmonary: HPI Abdomen: no vomiting, diarrhea, abdominal pain Musculoskeletal: no back pain Skin: no rash Neuro: no headache Constitutional: no fever : no urinary symptoms A comprehensive 10 point review of systems and history is unobtainable on arrival because of the patient's intoxication. PAST MEDICAL HISTORY: Hypertension and anxiety. Discharge summary dated 2016 reviewed by myself, had a negative nuclear stress test. Discharge summary dated 11/09 personally reviewed by myself shows right 2nd toe cellulitis and hypertension. Appendectomy Social history: Recent alcohol, tobacco smoker, no cocaine General Appearance: Alert and slurred speech, cooperative. Eyes: No scleral icterus. ENT, Mouth: Normal mucous membranes. Respiratory: Poor respiratory effort, breath sounds equal, lungs are decreased breath sounds bilaterally. Hypoventilating. Cardiovascular: Regular rate and rhythm. No murmur Gastrointestinal: Abdomen is soft and non tender. Lower midline incision well healed. Neurological: Alert and oriented x3. slurred speech. Face symmetric, normal movement and sensation in all extremities. Skin: Warm and dry, no rashes. Musculoskeletal: No peripheral edema and no joint swelling. Feet do not look infected , no redness or lymphangitis or blisters. Psychiatric: Not agitated. Emergency Department course/MDM: Plan for labs to include chemistry and troponin alcohol, EKG and chest x-ray. Think this is unlikely to be acute coronary syndrome with recent negative stress test, EKG and troponin not elevated. Patient does not have a pleuritic component or risk factors for pulmonary embolism. He does not have chest pain at time of discharge. Primary diagnosis alcohol intoxication. Discharge saturation 96% on room air, initial saturation likely due to hypoventilation. Smoking Status: Heavy smoker Constitutional: Initial Vital Signs Temperature (C) 36.5 C 12/07/16 08:51 Heart Rate 80 12/07/16 08:51 Respiratory Rate 16 12/07/16 08:51 Blood Pressure 129/90 H 12/07/16 08:51 O2 Sat (%) 88 L 12/07/16 08:51 O2 Delivery Mode Room Air O2 (L/minute) 3 Allergies/Adverse Reactions: venom-honey bee [bee venom (honey bee)] Allergy (Verified 12/07/16 08:54) Home Medications: Medication Instructions Recorded Lurasidone HCl [Latuda] 80 mg PO HS 11/04/16 QUEtiapine FUMARATE [Seroquel 300 mg PO HS 11/04/16 300mg (*)] Sertraline HCl [Zoloft 100mg (*)] 150 mg PO DAILY 11/04/16 traZODone [traZODONE 100MG (*)] 50 - 200 mg PO HS PRN 11/04/16 Cephalexin [Keflex (*)] 500 mg PO Q6HRS #36 cap 11/09/16 Hydrochlorothiazide [HCTZ (*)] 25 mg PO DAILY #30 tab 11/09/16 Lisinopril [Zestril 40 mg (*)] 40 mg PO DAILY #30 tab 11/09/16 Metoprolol Tartrate [Lopressor 50 50 mg PO BID #60 tab 11/09/16 mg (*)] Medical Decision Making - Diagnostics EKG Interpretation: 12-lead EKG interpreted by me; official reading is in trace master. My interpretation is sinus rhythm with long QT but no acute ischemic changes or ST elevation. Imaging: Chest x-ray viewed independently by myself shows no evidence of CHF for pneumonia or pneumothorax. Normal mediastinum Differential Diagnosis: Differential diagnosis considered for chest pain including but not limited to myocardial ischemia, aortic dissection, pericarditis, pulmonary embolus, chest wall pain, pleural inflammation and pulmonary infectious causes. - Data Points Laboratory Results: Laboratory Results 12/07/16 08:45 12/07/16 08:45 12/07/16 12/07/16 08:45 08:45 WBC 13.83 10^3/uL H 10^3/uL (3.80-9.50) RBC 5.05 10^6/uL 10^6/uL (4.40-6.38) Hgb 16.3 g/dL g/dL (13.7-17.5) Hct 47.2 % % (40.0-51.0) MCV 93.5 fL fL (81.5-99.8) MCH 32.3 pg pg (27.9-34.1) MCHC 34.5 g/dL g/dL (32.4-36.7) RDW 14.1 % % (11.5-15.2) Plt Count 209 10^3/uL 10^3/uL (150-400) MPV 8.8 fL fL (8.7-11.7) Neut % (Auto) 68.1 % % (39.3-74.2) Lymph % (Auto) 22.6 % % (15.0-45.0) [place] % (Auto) 7.2 % % (4.5-13.0) Eos % (Auto) 0.9 % % (0.6-7.6) Baso % (Auto) 0.7 % % (0.3-1.7) Nucleat RBC Rel Count 0.0 % % (0.0-0.2) Absolute Neuts (auto) 9.43 10^3/uL H 10^3/uL (1.70-6.50) Absolute Lymphs (auto) 3.12 10^3/uL H 10^3/uL (1.00-3.00) Absolute Monos (auto) 0.99 10^3/uL H 10^3/uL (0.30-0.80) Absolute Eos (auto) 0.12 10^3/uL 10^3/uL (0.03-0.40) Absolute Basos (auto) 0.10 10^3/uL 10^3/uL (0.02-0.10) Absolute Nucleated RBC 0.00 10^3/uL 10^3/uL (0-0.01) Immature Gran % 0.5 % % (0.0-1.1) Immature Gran # 0.07 10^3/uL 10^3/uL (0.00-0.10) Sodium 145 mEq/L H mEq/L (134-144) Potassium 3.3 mEq/L L mEq/L (3.5-5.2) Chloride 103 mEq/L mEq/L (97-110) Carbon Dioxide 28 mEq/l mEq/l (22-31) Anion Gap 14 mEq/L mEq/L (8-16) BUN 10 mg/dL mg/dL (7-23) Creatinine 0.7 mg/dL mg/dL (0.7-1.3) Estimated GFR > 60 Glucose 148 mg/dL H mg/dL (70-100) Calcium 8.5 mg/dL mg/dL (8.5-10.4) Troponin I 0.023 ng/mL ng/mL (0-0.034) Ethyl Alcohol 297 mg/dL H mg/dL (0-10) Medications Given: Discontinued Medications Chlordiazepoxide (Librium 25 Mg Prepack#6) 1 btl TAKEHOME EDNOW ONE Stop: 12/07/16 11:06 Last Admin: 12/07/16 11:17 Dose: 1 btl Departure - Departure Disposition: Home, Routine, Self-Care Clinical Impression: Alcohol intoxication Qualifiers: Complication of substance-induced condition: uncomplicated Qualified Code(s): F10.120 - Alcohol abuse with intoxication, uncomplicated Chest pain Qualifiers: Chest pain type: other chest pain Qualified Code(s): R07.89 - Other chest pain Condition: Good Instructions: Alcohol Intoxication (ED) Referrals: [facility],. [Clinic] - As per Instructions
[2016-12-07 08:53] VITALS: RESP 16
[2016-12-07 08:57] VITALS: O2SAT 96
[2016-12-07 08:58] LABS: % IMMATURE GRANULYOCYTES 0.5 % (0.0-1.1); ABSOLUTE IMMATURE GRANULOCYTES 0.07 10^3/uL (0.00-0.10); ADD DIFF? NO; ADD MORPH? NO; ADD SCAN? NO; ATYPICAL LYMPHOCYTE FLAG 10 (0-99); FRAGMENT RBC FLAG 0 (0-99); HEMATOCRIT 47.2 % (40.0-51.0); HEMOGLOBIN 16.3 g/dL (13.7-17.5); LEFT SHIFT FLG 0 (0-99); LIPEMIA HEMOLYSIS FLAG 90 (0-99); MEAN CELL HEMOGLOBIN 32.3 pg (27.9-34.1); MEAN CELL HEMOGLOBIN CONCENTR. 34.5 g/dL (32.4-36.7); MEAN CELL VOLUME 93.5 fL (81.5-99.8); MEAN PLATELET VOLUME 8.8 fL (8.7-11.7); PLATELET CLUMPS FLAG 0 (0-99); PLATELET COUNT 209 10^3/uL (150-400); RED BLOOD CELL COUNT 5.05 10^6/uL (4.40-6.38); RED CELL DISTRIBUTION WIDTH 14.1 % (11.5-15.2)
--- NOTE | 2016-12-07 08:59 | CPEKG ---
Heart Rate: 80 RR Interval: 750 P-R Interval: 148 QRSD Interval: 96 QT Interval: 444 QTC Interval: 513 P [place]: 50 QRS [place]: 28 T Wave [place]: 8 EKG Severity - ABNORMAL ECG - EKG Impression: SINUS RHYTHM EKG Impression: PROLONGED QT INTERVAL Electronically Signed By: Jean Kaur 07-Dec-2016 09:23:37
[2016-12-07 09:20] LABS: ANION GAP 14 mEq/L (8-16); CALCIUM 8.5 mg/dL (8.5-10.4); CARBON DIOXIDE 28 mEq/l (22-31); CHLORIDE 103 mEq/L (97-110); CREATININE 0.7 mg/dL (0.7-1.3); ETHANOL SERUM 297 mg/dL (0-10); GLOMERULAR FILTRATION RATE > 60; GLUCOSE 148 mg/dL (70-100); POTASSIUM 3.3 mEq/L (3.5-5.2); SODIUM 145 mEq/L (134-144)
[2016-12-07 09:31] LABS: TROPONIN I 0.023 ng/mL (0-0.034)
[2016-12-07] MEDS ORDERED: CHLORDIAZEPOXIDE 25MG PREPK#6 BTL TAKEHOME ONE (11:05)
[2016-12-07 11:12] VITALS: BP 141/106; PULSE 86; TEMP 97.9
== END 2016-12-07 11:36 | disposition home or self-care (01) ==
LOC: EDUNIT#
DX: R07.89 Other chest pain (principal); F10.120 Alcohol abuse with intoxication, uncomplicated; I10 Essential (primary) hypertension; F17.200 Nicotine dependence, unspecified, uncomplicated
CPT/HCPCS: G0480

== ENCOUNTER 2016-12-17 19:46 | Inpatient (IN) | payer MEDICAID ==
--- NOTE | 2016-12-17 19:47 | EDPHY ---
H & P HPI/ROS: CHIEF COMPLAINT: Chest pain, dizziness, headache, shortness of breath. HISTORY OF PRESENT ILLNESS: The patient is a 46-year-old male with a history of hypertension, CHF, and COPD who presents via EMS for 30 minutes of left- sided chest pain that has been worsening over that period of time. The pain is described as feeling "tired and stressed out." It does not radiate. It is worsened with deep breathing. He admits associated shortness of breath, dizziness, and severe headache. The headache preceded the other symptoms. He admits to vomiting an hour ago and multiple days of fever/chills. EMS administered 324mg PO Aspirin and .4mg Nitroglycerin en route. After medications the pain lessened to a 7/10. He was hypoxic for EMS. He admits to alcohol use tonight but no other drugs. No palpitations, vomiting, diarrhea, urinary complaints, lightheadedness. He has been unable to take his medications for the past month. REVIEW OF SYSTEMS: Review of systems is difficult given this patient's somnolence. He does provide a review of systems as per the HPI. PAST MEDICAL HISTORY: COPD, hypertension, CHF, depression, anxiety, schizophrenia. SOCIAL HISTORY: Homeless. VITAL SIGNS: Reviewed by me GENERAL: Obese, lethargic but arousable. Sonorous respirations, tachypneic, occasional wet cough. Hypoxic on room air 80%. HEENT: Atraumatic. Eyes: No icterus. Bloodshot eyes. Mouth: moist mucous membranes. Alcohol on breath. No erythema or lesions. Neck: supple with no adenopathy. LUNGS: No rhonchi or rales. Wheezes throughout. Diminished breath sounds. CARDIAC: Regular tachycardia, no rubs, murmurs or gallops. ABDOMEN: Soft, nontender, nondistended, bowel sounds normal. BACK: No CVA tenderness. EXTREMITIES: No trauma. Range of motion is normal throughout. Bilateral ankle edema. NEURO: Arousable but somnolent. Able to give me some limited history when a woken. SKIN: Warm and dry, no rash. PSYCHIATRIC: Normal mentation, no agitation. Portions of this note were transcribed by a pediatric medical assistant. I personally performed a history, physical exam, medical decision making, and confirmed accuracy of information the transcribed note. Source: Patient Exam Limitations: No limitations Constitutional: Initial Vital Signs Temperature (C) 36 C 12/17/16 19:51 Heart Rate 109 H 12/17/16 19:51 Respiratory Rate 17 12/17/16 19:51 Blood Pressure 142/105 H 12/17/16 19:51 O2 Sat (%) 80 L 12/17/16 19:51 O2 Delivery Mode Oxymizer O2 (L/minute) 12 Allergies/Adverse Reactions: venom-honey bee [bee venom (honey bee)] Allergy (Verified 12/17/16 19:51) Home Medications: Medication Instructions Recorded Lurasidone HCl [Latuda] 80 mg PO HS 11/04/16 QUEtiapine FUMARATE [Seroquel 300 mg PO HS 11/04/16 300mg (*)] Sertraline HCl [Zoloft 100mg (*)] 150 mg PO DAILY 11/04/16 traZODone [traZODONE 100MG (*)] 50 - 200 mg PO HS PRN 11/04/16 Cephalexin [Keflex (*)] 500 mg PO Q6HRS #36 cap 11/09/16 Hydrochlorothiazide [HCTZ (*)] 25 mg PO DAILY #30 tab 11/09/16 Lisinopril [Zestril 40 mg (*)] 40 mg PO DAILY #30 tab 11/09/16 Metoprolol Tartrate [Lopressor 50 50 mg PO BID #60 tab 11/09/16 mg (*)] Medical Decision Making - Diagnostics EKG Interpretation: 12-LEAD EKG: Please see the full report in [facility]. My interpretation: Normal sinus tachycardia. Imaging: X-ray of the chest was obtained. I viewed the images myself on the PACS system. The radiologist interpretation per Dr. Alejo is: 1. Congestive heart failure. 2. Shallow inspiration with no pneumonia identified. 3. See above report for additional findings. ED Course/Re-evaluation: I met EMS on arrival and obtained a report from the clothes model. An IV was established and labs ordered. Chest x-ray, EKG obtained. 125mg IV Solu-Medrol and DuoNeb as well as an albuterol nebulizer treatment for administered. Lactic acid elevated at 2.5. Patient has a normal white count. Chest x-ray does not demonstrate any clear pneumonia. 2047: Reassessed patient. He is extremely sleepy and has pinpoint pupils on exam. Oxygen saturation is intermittently dropping into the high 70s. 04mg IV Narcan administered. Patient placed on oxymask. He continues to have diffuse wheezes on exam. Respiratory therapy will assess and begin continuous nebs. Troponin elevated at 0.056. 20mg IV Lasix administered for CHF seen on x-ray. Severe Sepsis/Septic Shock Care Note The patient presents to the ED with hypoxemia, COPD, possible pneumonia, alcohol intoxication and medication noncompliance. He does report fevers and a cough. Patient was screened for sepsis. The patient did have evidence of end- organ dysfunction and met criteria for severe sepsis given his elevated lactic acid. This condition was identified by myself at 2100 hours. The patients vital signs are 162/115, heart rate 112, 94% on a non-rebreather, afebrile, respiratory rate 18. The patient has a venous lactic acid performed within 3 hours of the identification of severe sepsis which was found to be 2.5. The patient has blood cultures drawn. The initial lactate was elevated and rechecked within 6 hours of the identification time of severe sepsis and found to be: 2.1. After consultation with the hospitalist service, decision was made not to administer 30 cc/kilos of fluid at this point time. Patient's antibiotics were also held, pending further evaluation. Of note, the patient's D-dimer is likewise elevated. Hospitalist service plans to obtain a CT pulmonary angiogram. Differential Diagnosis: Differential diagnoses for the patient's symptom complex was considered including but not limited to pneumonia, respiratory failure, COPD exacerbation, congestive heart failure, acute coronary syndrome, pulmonary emboli. Consult/Admit Bed Type: Dr. Lui, step-down Critical Care Time: Critical care time spent by Dr. Jaguar calabrese exclusively with this patient was 35 minutes, exclusive of PA time and exclusive of procedures. The organ system at risk was pulmonary and cardiac and I gave recurrent nebulizer treatments, respiratory therapy interventions, Lasix, and oxygen to prevent worsening of the patients condition. Critical care time included obtaining history, performing a physical exam, bedside monitoring of interventions, collecting and interpreting tests and discussion with consultants but not including time spent performing procedures. - Data Points Laboratory Results: Laboratory Results 12/17/16 20:15 12/17/16 20:15 12/17/16 12/17/16 12/17/16 20:58 20:20 20:15 WBC RBC Hgb Hct MCV MCH MCHC RDW Plt Count MPV Neut % (Auto) Lymph % (Auto) Navarro % (Auto) Eos % (Auto) Baso % (Auto) Nucleat RBC Rel Count Absolute Neuts (auto) Absolute Lymphs (auto) Absolute Monos (auto) Absolute Eos (auto) Absolute Basos (auto) Absolute Nucleated RBC Immature Gran % Immature Gran # PT INR APTT D-Dimer VBG Lactic Acid 2.1 mmol/L mmol/L (0.7-2.1) Sodium Potassium Chloride Carbon Dioxide Anion Gap BUN Creatinine Estimated GFR Glucose Calcium Total Bilirubin Conjugated Bilirubin Unconjugated Bilirubin AST ALT Alkaline Phosphatase Troponin I NT-Pro-B Natriuret Pep Total Protein Albumin TSH Pending Ethyl Alcohol Influenza A & B (PCR) NEGATIVE FOR FLU (NEGATIVE) 12/17/16 12/17/16 12/17/16 20:15 20:15 20:15 WBC RBC Hgb Hct MCV MCH MCHC RDW Plt Count MPV Neut % (Auto) Lymph % (Auto) Navarro % (Auto) Eos % (Auto) Baso % (Auto) Nucleat RBC Rel Count Absolute Neuts (auto) Absolute Lymphs (auto) Absolute Monos (auto) Absolute Eos (auto) Absolute Basos (auto) Absolute Nucleated RBC Immature Gran % Immature Gran # PT 12.8 SEC SEC (12.0-15.0) INR 0.97 (0.83-1.16) APTT 26.3 SEC SEC (23.0-38.0) D-Dimer 1.96 ug/mLFEU H ug/mLFEU (0.00-0.50) VBG Lactic Acid Sodium Potassium Chloride Carbon Dioxide Anion Gap BUN Creatinine Estimated GFR Glucose Calcium Total Bilirubin 0.4 mg/dL mg/dL (0.1-1.4) Conjugated Bilirubin Unconjugated Bilirubin AST ALT Alkaline Phosphatase Troponin I NT-Pro-B Natriuret Pep Total Protein Albumin TSH Ethyl Alcohol Influenza A & B (PCR) 12/17/16 12/17/16 12/17/16 20:15 20:15 20:15 WBC 8.52 10^3/uL 10^3/uL (3.80-9.50) RBC 4.78 10^6/uL 10^6/uL (4.40-6.38) Hgb 15.6 g/dL g/dL (13.7-17.5) Hct 45.9 % % (40.0-51.0) MCV 96.0 fL fL (81.5-99.8) MCH 32.6 pg pg (27.9-34.1) MCHC 34.0 g/dL g/dL (32.4-36.7) RDW 15.6 % H % (11.5-15.2) Plt Count 205 10^3/uL 10^3/uL (150-400) MPV 8.4 fL L fL (8.7-11.7) Neut % (Auto) 64.2 % % (39.3-74.2) Lymph % (Auto) 25.1 % % (15.0-45.0) Navarro % (Auto) 8.1 % % (4.5-13.0) Eos % (Auto) 1.1 % % (0.6-7.6) Baso % (Auto) 0.9 % % (0.3-1.7) Nucleat RBC Rel Count 0.9 % H % (0.0-0.2) Absolute Neuts (auto) 5.47 10^3/uL 10^3/uL (1.70-6.50) Absolute Lymphs (auto) 2.14 10^3/uL 10^3/uL (1.00-3.00) Absolute Monos (auto) 0.69 10^3/uL 10^3/uL (0.30-0.80) Absolute Eos (auto) 0.09 10^3/uL 10^3/uL (0.03-0.40) Absolute Basos (auto) 0.08 10^3/uL 10^3/uL (0.02-0.10) Absolute Nucleated RBC 0.08 10^3/uL H 10^3/uL (0-0.01) Immature Gran % 0.6 % % (0.0-1.1) Immature Gran # 0.05 10^3/uL 10^3/uL (0.00-0.10) PT INR APTT D-Dimer VBG Lactic Acid 2.5 mmol/L H mmol/L (0.7-2.1) Sodium 146 mEq/L H mEq/L (134-144) Potassium 3.3 mEq/L L mEq/L (3.5-5.2) Chloride 103 mEq/L mEq/L (97-110) Carbon Dioxide 30 mEq/l mEq/l (22-31) Anion Gap 13 mEq/L mEq/L (8-16) BUN 12 mg/dL mg/dL (7-23) Creatinine 1.0 mg/dL mg/dL (0.7-1.3) Estimated GFR > 60 Glucose 165 mg/dL H mg/dL (70-100) Calcium 8.3 mg/dL L mg/dL (8.5-10.4) Total Bilirubin 0.4 mg/dL mg/dL (0.1-1.4) Conjugated Bilirubin 0.4 mg/dL mg/dL (0.0-0.5) Unconjugated Bilirubin 0.0 mg/dL mg/dL (0.0-1.1) AST 59 IU/L IU/L (17-59) ALT 33 IU/L IU/L (21-72) Alkaline Phosphatase 77 IU/L IU/L (38-126) Troponin I 0.056 ng/mL H ng/mL (0-0.034) NT-Pro-B Natriuret Pep 203 pg/mL H pg/mL (0-125) Total Protein 6.6 g/dL g/dL (6.3-8.2) Albumin 3.6 g/dL g/dL (3.5-5.0) TSH Ethyl Alcohol 159 mg/dL H mg/dL (0-10) Influenza A & B (PCR) Medications Given: Discontinued Medications Albuterol (Proventil Neb) 3 ml IH EDNOW ONE Stop: 12/17/16 19:58 Last Admin: 12/17/16 20:00 Dose: 3 ml Albuterol/Ipratropium (Duoneb) 3 ml IH EDNOW ONE Stop: 12/17/16 19:58 Last Admin: 12/17/16 20:00 Dose: 3 ml Furosemide (Lasix Injection) 20 mg IVP EDNOW ONE Stop: 12/17/16 21:12 Last Admin: 12/17/16 21:33 Dose: 20 mg Ceftriaxone Sodium/Dextrose (Rocephin 1 Gm (Premix)) 50 mls @ 100 mls/hr IV EDNOW ONE PRN Reason: Protocol Stop: 12/17/16 22:12 Last Admin: 12/17/16 22:00 Dose: Not Given Methylprednisolone Sodium Succinate (Solu-Medrol) 125 mg IVP EDNOW ONE Stop: 12/17/16 19:58 Last Admin: 12/17/16 20:11 Dose: 125 mg Departure - Departure Disposition: [facility] Inpatient Acute Clinical Impression: Chest pain, Shortness of breath, Hypoxia, Elevated troponin Condition: Serious Report Scribed for: Fabienne Montesinos Report Scribed by: Abdelrahman Brandt Date of Report: 12/17/16 Time of Report: 19:52
[2016-12-17] MEDS ORDERED: ALBUTEROL 3 ML DEYVIAL ONE ×3 (19:53→21:03)
[2016-12-17] MEDS ORDERED: IPRATROPIUM/ALBUTEROL 3 ML DEYVIAL ONE (19:53)
--- NOTE | 2016-12-17 19:53 | CPEKG ---
Heart Rate: 108 RR Interval: 556 P-R Interval: 140 QRSD Interval: 92 QT Interval: 372 QTC Interval: 499 P Cahone: 64 QRS Cahone: 16 T Wave Cahone: -31 EKG Severity - ABNORMAL ECG - EKG Impression: SINUS TACHYCARDIA EKG Impression: PROBABLE LEFT VENTRICULAR HYPERTROPHY EKG Impression: BORDERLINE T ABNORMALITIES, INFERIOR LEADS EKG Impression: BORDERLINE PROLONGED QT INTERVAL Electronically Signed By: Fabienne Montesinos 17-Dec-2016 23:06:39
[2016-12-17] MEDS ORDERED: ALBUTEROL 3 ML DEYVIAL IH ONE (19:57)
[2016-12-17] MEDS ORDERED: methylPREDNISolone SOD SUCC 125 MG/2 ML VIAL IVP ONE (19:57)
[2016-12-17] MEDS ORDERED: IPRATROPIUM/ALBUTEROL 3 ML DEYVIAL IH ONE (19:57)
[2016-12-17] MEDS ORDERED: methylPREDNISolone SOD SUCC 125 MG/2 ML VIAL ONE (20:03)
[2016-12-17 20:28] LABS: % IMMATURE GRANULYOCYTES 0.6 % (0.0-1.1); ABSOLUTE IMMATURE GRANULOCYTES 0.05 10^3/uL (0.00-0.10); ABSOLUTE NRBC COUNT 0.08 10^3/uL (0-0.01); ADD DIFF? NO; ADD MORPH? NO; ADD SCAN? NO; ATYPICAL LYMPHOCYTE FLAG 20 (0-99); FRAGMENT RBC FLAG 0 (0-99); HEMATOCRIT 45.9 % (40.0-51.0); HEMOGLOBIN 15.6 g/dL (13.7-17.5); LEFT SHIFT FLG 0 (0-99); LIPEMIA HEMOLYSIS FLAG 90 (0-99); MEAN CELL HEMOGLOBIN 32.6 pg (27.9-34.1); MEAN PLATELET VOLUME 8.4 fL (8.7-11.7); NRBC-AUTO% 0.9 % (0.0-0.2); PLATELET CLUMPS FLAG 0 (0-99); PLATELET COUNT 205 10^3/uL (150-400); RED BLOOD CELL COUNT 4.78 10^6/uL (4.40-6.38); RED CELL DISTRIBUTION WIDTH 15.6 % (11.5-15.2)
[2016-12-17 20:45] LABS: ALANINE AMINOTRANSFERASE 33 IU/L (21-72); ALBUMIN 3.6 g/dL (3.5-5.0); ALKALINE PHOSPHATASE 77 IU/L (38-126); ANION GAP 13 mEq/L (8-16); ASPARTATE AMINOTRANSFERASE 59 IU/L (17-59); BILIRUBIN,TOTAL 0.4 mg/dL (0.1-1.4); BILIRUBIN-CONJUGATED 0.4 mg/dL (0.0-0.5); CALCIUM 8.3 mg/dL (8.5-10.4); CARBON DIOXIDE 30 mEq/l (22-31); CHLORIDE 103 mEq/L (97-110); GLOMERULAR FILTRATION RATE > 60; GLUCOSE 165 mg/dL (70-100); POTASSIUM 3.3 mEq/L (3.5-5.2); SODIUM 146 mEq/L (134-144); TOTAL PROTEIN 6.6 g/dL (6.3-8.2)
[2016-12-17] MEDS ORDERED: NALOXONE HCL 0.4 MG/ML INJ ONE (20:47)
[2016-12-17 20:56] LABS: TROPONIN I 0.056 ng/mL (0-0.034)
[2016-12-17 21:01] LABS: ETHANOL SERUM 159 mg/dL (0-10)
[2016-12-17] MEDS ORDERED: FUROSEMIDE 20 MG/2 ML VIAL IVP ONE (21:11)
[2016-12-17 21:41] LABS: INR 0.97 (0.83-1.16); PROTIME(PATIENT) 12.8 SEC (12.0-15.0)
[2016-12-17 21:42] LABS: APTT 26.3 SEC (23.0-38.0); BILIRUBIN,TOTAL 0.4 mg/dL (0.1-1.4)
[2016-12-17] MEDS ORDERED: NS 1,000 ML IV ONE (22:09)
[2016-12-17] MEDS ORDERED: ONDANSETRON 4 MG/2 ML VIAL IVP PRN (22:09)
[2016-12-17] MEDS ORDERED: IPRATROPIUM/ALBUTEROL 3 ML DEYVIAL IH PRN (22:09)
[2016-12-17] MEDS ORDERED: LORazepam 2 MG/ML INJ IVP PRN (22:10)
[2016-12-17] MEDS ORDERED: IOPAMIDOL (ISOVUE 370) 100 ML BTL IV ONE (22:13)
[2016-12-17] MEDS ORDERED: D5W 1/2 NS W/ 20 KCl/L 1,000 ML IV SCH (22:15)
--- NOTE | 2016-12-17 22:37 | GHP ---
[f rep st] HISTORY AND PHYSICAL DATE OF ADMISSION: 12/17/2016 CHIEF COMPLAINT: Shortness of breath and alcohol intoxication. HISTORY OF PRESENT ILLNESS: This is a 46-year-old male with a history of diastolic congestive heart failure, alcoholism, hypertension, and depression who was admitted at [facility] from 11/03/2016 through 11/09/2016 after being treated for alcohol withdrawal, group A strep, right 2nd toe cellulitis with abscess, and chronic congestive heart failure due to diastolic dysfunction. He presents to the hospital today with shortness of breath. During the time of my exam, the patient was hard to arouse. All history was obtained via ER report. He presented to the ER by EMS after he reportedly had some left-sided chest pain. He also reporte d multiple days of fevers and chills. In the field, the EMS gave him 324 mg of aspirin and nitrogly cerin which apparently improved his chest pain. In the emergency department, he was found to be hyp oxemic and was placed on a non-rebreather. PAST MEDICAL HISTORY: 1. Diastolic congestive heart failure. Last echocardiogram done in September of 2016 showed ejection fraction of 61% with moderate concentric LVH and evidence for diastolic dysfunction. 2. Hypertension. 3. Alcoholism. 4. Folliculitis. 5. Depression. 6. PTSD. 7. Recent hospitalization for group A strep, right 2nd toe cellulitis with abscess. 8. Obesity. 9. Alcohol withdrawal. HOME MEDICATIONS: Unavailable. ALLERGIES: Bees. SOCIAL HISTORY: He is homeless. He has a history of alcohol use and remote history of IV drug use. FAMILY HISTORY: Significant for diabetes and heart disease. REVIEW OF SYSTEMS: Comprehensive 10-point review of systems was attempted but unobtainable due to t he patient's alcohol intoxication. PHYSICAL EXAM: VITAL SIGNS: Blood pressure 143/84, pulse of 111, respiratory rate 16, O2 saturatio n 94% on 10 L non-rebreather, 80% on room air. Temperature afebrile. GENERAL: Ill-appearing. HEAD : Normocephalic, atraumatic. Eyes are PERRLA. Sclerae anicteric. MOUTH: Moist mucous membranes. NECK: Supple. No lymphadenopathy. CARDIOVASCULAR: Tachycardic, S1, S2. No JVD. There is nonp itting lower extremity edema. PULMONARY: Lungs are clear. He is slightly tachypneic. There are n o wheezes, rales, or rhonchi. Breath sounds are slightly diminished in the bases. ABDOMEN: Soft, nontender, nondistended. No guarding or rebound tenderness. Normoactive bowel sounds. EXTREMITIES : No clubbing or cyanosis. NEURO: Cranial nerves 2-12 grossly intact. No focal motor or sensory deficits. SKIN: Clear, no rashes. DIAGNOSTICS: WBC is 8.5, hemoglobin 15.6, hematocrit 45.9, platelets 205. D-dimer elevated at 1.96 . Venous lactic acid was 2.1. Sodium 146, potassium 3.3, chloride 103, CO2 30, BUN 12, creatinine 1, glucose 165. Troponin indeterminate at 0.056. BNP 203. Ethyl alcohol 159. Influenza A and B by PCR was negative. Chest x-ray, which I visualized and personally interpreted, shows some cardiomeg reny and some pulmonary venous hypertension. No obvious pneumonia. EKG, which I visualized and pers onally interpreted, shows sinus tachycardia 108 beats per minute with T-wave flattening in lead II, mild inversion in lead III, and flattening in aVF. ASSESSMENT AND PLAN: This is a 46-year-old male presenting with. 1. Acute respiratory failure with elevated D-dimer. 2. Plan: The patient will be admitted to the step-down unit where we will continue high-flow oxyge n. We will order a stat CT angio of the chest to further evaluate his lungs and to look for pulmona ry embolism. 3. Tachycardia in the absence of fever or leukocytosis, without an obvious source of infection. Pl an: Once again, we will obtain a CT angio of the chest. We will check a TSH. We will give a fluid bolus of 1 L. 4. Indeterminate troponin. Plan: It appears that the patient had an unremarkable nuclear stress t est done on October 19, 2016, that was negative for ischemia. We will continue to trend his troponi ns and monitor. 5. Acute alcohol intoxication with history of alcohol withdrawal. Plan: We will start the CIWA pr otocol. The patient is high risk and will be admitted to the step-down unit. We will order low molecular we ight heparin for DVT prophylaxis. /[id number]/MODL
[2016-12-18] MEDS ORDERED: hydrALAZINE 20 MG/ML VIAL IVP PRN (01:27)
[2016-12-18 05:31] LABS: % IMMATURE GRANULYOCYTES 1.4 % (0.0-1.1); ABSOLUTE IMMATURE GRANULOCYTES 0.18 10^3/uL (0.00-0.10); ABSOLUTE NRBC COUNT 0.06 10^3/uL (0-0.01); ADD DIFF? NO; ADD MORPH? NO; ADD SCAN? NO; ATYPICAL LYMPHOCYTE FLAG 0 (0-99); FRAGMENT RBC FLAG 0 (0-99); HEMATOCRIT 46.7 % (40.0-51.0); LEFT SHIFT FLG 0 (0-99); LIPEMIA HEMOLYSIS FLAG 90 (0-99); MEAN CELL HEMOGLOBIN 32.8 pg (27.9-34.1); MEAN CELL HEMOGLOBIN CONCENTR. 34.3 g/dL (32.4-36.7); MEAN CELL VOLUME 95.7 fL (81.5-99.8); MEAN PLATELET VOLUME 8.4 fL (8.7-11.7); NRBC-AUTO% 0.5 % (0.0-0.2); PLATELET CLUMPS FLAG 10 (0-99); PLATELET COUNT 212 10^3/uL (150-400); RED BLOOD CELL COUNT 4.88 10^6/uL (4.40-6.38); RED CELL DISTRIBUTION WIDTH 15.7 % (11.5-15.2)
[2016-12-18 05:37] LABS: COLOR PALE YELLOW; LEUKOCYTE ESTERASE,URINE NEGATIVE (NEGATIVE); NITRITE,URINE NEGATIVE (NEGATIVE)
[2016-12-18 05:45] LABS: RBC,URINE 15-25 /hpf (0-3)
[2016-12-18 05:50] LABS: ANION GAP 11 mEq/L (8-16); CALCIUM 8.2 mg/dL (8.5-10.4); CARBON DIOXIDE 28 mEq/l (22-31); CHLORIDE 104 mEq/L (97-110); CREATININE 0.7 mg/dL (0.7-1.3); GLOMERULAR FILTRATION RATE > 60; GLUCOSE 184 mg/dL (70-100); MAGNESIUM 1.2 mg/dL (1.6-2.3); POTASSIUM 3.7 mEq/L (3.5-5.2); SODIUM 143 mEq/L (134-144)
[2016-12-18 06:00] LABS: TROPONIN I 0.038 ng/mL (0-0.034)
[2016-12-18] MEDS ORDERED: PROTOCOL MAGNESIUM 1 DOSE IV PRN (06:02)
[2016-12-18] MEDS ORDERED: PROTOCOL POTASSIUM 1 DOSE MISC PRN (06:02)
[2016-12-18] MEDS ORDERED: MAGNESIUM SULF 2 GM/WATER 50 ML IV ONE ×2 (06:19→10:30)
[2016-12-18] MEDS ORDERED: POTASSIUM CL 10 MEQ TAB PO ONE ×2 (06:20→10:00)
--- NOTE | 2016-12-18 10:13 | HOSPPROG ---
Hospitalist Progress Note Assessment/Plan: Assessment: 46 yo M p/w acute hypoxic respiratory failure 2/2 acute COPD exacerbation Plan: 1. Acute hypoxic respiratory failure. Evidenced by SpO2 80% w/ symptomatic shortness of breath, requiring NRB, 2/2 acute COPD exacerbation -tx COPD -cont on supp o2at 6-10LPM 2. Acute COPD exacerbation. Evidenced by diffuse exp wheezes and bronchial breath sounds, smoking hx, reportedly supposed to be on o2 and albuterol as outpt, likely viral URI precipitant -d/w Dr. Zamudio on rounds, agrees w/ scheduled duonebs today -add PO steroids, D#09/29 -azithro, D#/ -mucinex and tessalon 3. Chronic diastolic CHF. No e/o acute exacerbation, avoid ongoing IVF 4. Atelectasis. Present on CTA, get IS 5. Acute EtOH intoxication. Monitor for withdraw on CIWA, please do not start scheduled alcohol 6. Chest pain. Acute, likely 2/2 COPD, mild troponin release likely from exacerbation, outside records (10/19/16 nuc stress test w/o ischemia) reviewed -no indication for further testing Diet. Regular PPx. High risk, lovenox 40 Code. Full Dispo. ADD uncertain, pending stabilization of above. Patient remains high risk, high level of medical complexity 2/2 above. Subjective: Patient reports that he feels tired Objective: Vital Signs Temp Pulse Resp BP Pulse Ox 36.9 C 93 15 175/92 H 92 12/18/16 08:00 12/18/16 08:00 12/18/16 08:00 12/18/16 09:11 12/18/16 08:00 Laboratory Results 12/18/16 05:15 12/18/16 05:15 12/17/16 12/18/16 12/19/16 05:59 05:59 05:59 Intake Total 1600 Output Total 1550 Balance 50 PT 12.8 SEC (12.0-15.0) 12/17/16 20:15 INR 0.97 (0.83-1.16) 12/17/16 20:15 - Physical Exam Constitutional: no apparent distress, not in pain, chronically ill appearing, obese, No uncomfortable Cardiovascular: systolic murmur (106 sternum), tachycardia, No irregularly irregular, No edema Respiratory: expiratory wheeze, inspiratory crackles (Bilateral bases), bronchial breath sounds, other (pausing between sentences) Gastrointestinal: normoactive bowel sounds, soft, non-tender abdomen, no palpable masses Neurologic: AAOx3, sensation intact bilaterally, No weakness, No asterixes (No tremulousness) Psychiatric: not encephalopathic, thought process linear, anxious, flat affect ICD10 Worksheet Patient Problems: Problems Problem Status Onset Diabetic foot infection Acute Suicidal ideation Acute Alcohol intoxication Acute Chest pain Acute Shortness of breath Acute Hypoxia Acute Elevated troponin Acute
[2016-12-18] MEDS: ENOXAPARIN 40 MG/0.4 ML SYR SC SCH (10:20)
[2016-12-18] MEDS: MULTIVITAMINS 1 EACH TAB PO SCH (10:20)
[2016-12-18] MEDS: FAMOTIDINE 20 MG TAB PO SCH ×2 (10:20→20:45)
[2016-12-18] MEDS: FOLIC ACID 1 MG TAB PO SCH (10:20)
[2016-12-18] MEDS: AZITHROMYCIN 250 MG TAB PO SCH (10:53)
[2016-12-18] MEDS: LISINOPRIL 40 MG TAB PO SCH (10:54)
[2016-12-18] MEDS: LORazepam 1 MG TAB PO PRN ×2 (10:54→17:07)
[2016-12-18] MEDS: predniSONE 20 MG TAB PO SCH (10:54)
[2016-12-18] MEDS: IPRATROPIUM/ALBUTEROL 3 ML DEYVIAL IH SCH ×3 (12:38→23:55)
[2016-12-18] MEDS ORDERED: traZODone 100 MG TAB PO PRN (13:30)
[2016-12-18] MEDS: METOPROLOL TARTRATE 50 MG TAB PO SCH ×2 (14:19→20:45)
[2016-12-18] MEDS: HYDROCHLOROTHIAZIDE 25 MG TAB PO SCH (14:20)
[2016-12-18] MEDS: SERTRALINE HCL 100 MG TAB PO SCH (14:20)
[2016-12-18] MEDS: LURASIDONE HCL 80 MG TAB PO SCH (20:45)
[2016-12-18] MEDS: QUEtiapine FUMARATE 300 MG TAB PO SCH (20:45)
[2016-12-19] MEDS: LORazepam 1 MG TAB PO PRN ×2 (02:18→20:12)
[2016-12-19 04:57] LABS: ANION GAP 7 mEq/L (8-16); CALCIUM 8.5 mg/dL (8.5-10.4); CARBON DIOXIDE 32 mEq/l (22-31); CHLORIDE 103 mEq/L (97-110); CREATININE 0.8 mg/dL (0.7-1.3); GLOMERULAR FILTRATION RATE > 60; GLUCOSE 109 mg/dL (70-100); MAGNESIUM 1.8 mg/dL (1.6-2.3); POTASSIUM 3.3 mEq/L (3.5-5.2); SODIUM 142 mEq/L (134-144)
[2016-12-19] MEDS: IPRATROPIUM/ALBUTEROL 3 ML DEYVIAL IH SCH ×3 (05:25→17:55)
[2016-12-19] MEDS ORDERED: POTASSIUM CL 20 MEQ TAB PO ONE (08:26)
[2016-12-19] MEDS ORDERED: METOPROLOL TARTRATE 50 MG TAB PO SCH (09:00)
[2016-12-19] MEDS: LISINOPRIL 40 MG TAB PO SCH (10:12)
[2016-12-19] MEDS: predniSONE 20 MG TAB PO SCH (10:12)
[2016-12-19] MEDS: FOLIC ACID 1 MG TAB PO SCH (10:12)
[2016-12-19] MEDS: MULTIVITAMINS 1 EACH TAB PO SCH (10:12)
[2016-12-19] MEDS: HYDROCHLOROTHIAZIDE 25 MG TAB PO SCH (10:13)
[2016-12-19] MEDS: SERTRALINE HCL 100 MG TAB PO SCH (10:13)
[2016-12-19] MEDS: FAMOTIDINE 20 MG TAB PO SCH ×2 (10:13→20:11)
[2016-12-19] MEDS: METOPROLOL TARTRATE 50 MG TAB PO SCH ×2 (10:14→20:12)
[2016-12-19] MEDS: AZITHROMYCIN 250 MG TAB PO SCH (10:15)
[2016-12-19] MEDS: ENOXAPARIN 40 MG/0.4 ML SYR SC SCH (10:16)
[2016-12-19] MEDS: NICOTINE 21 MG/24 HR PATCH TD SCH (14:18)
[2016-12-19] MEDS: NICOTINE POLACRILEX 2 MG GUM B PRN ×2 (14:20→20:13)
--- NOTE | 2016-12-19 14:49 | HOSPPROG ---
Hospitalist Progress Note Assessment/Plan: Assessment: 46 yo M p/w acute hypoxic respiratory failure 2/2 acute COPD exacerbation Plan: 1. Acute hypoxic respiratory failure. Evidenced by SpO2 80% w/ symptomatic shortness of breath, requiring NRB, 2/2 acute COPD exacerbation -tx COPD -cont on supp o2at 2-5LPM -will likely require supplemental o2 at DC 2. Acute COPD exacerbation. Evidenced by diffuse exp wheezes and bronchial breath sounds, smoking hx, reportedly supposed to be on o2 and albuterol as outpt, likely viral URI precipitant -cont scheduled duonebs today -cont PO steroids, D#2/5 -azithro, D#2/5 -mucinex and tessalon -remains clinically unresolved w/ ongoing wheezes and bronchial breath sounds 3. Chronic diastolic CHF. No e/o acute exacerbation, avoid ongoing IVF 4. Atelectasis. Present on CTA, get IS 5. Acute EtOH intoxication. Monitor for withdraw on CIWA, please do not start scheduled alcohol 6. Chest pain. Acute, likely 2/2 COPD, mild troponin release likely from exacerbation, outside records (10/19/16 nuc stress test w/o ischemia) reviewed -no indication for further testing 7. Tobacco use disorder. Cessation encouraged, NRT ordered Diet. Regular PPx. High risk, lovenox 40 Code. Full Dispo. ADD 12/20, pending stabilization of above. Subjective: Patient reports that he just wants to sleep this morning Objective: Vital Signs Temp Pulse Resp BP Pulse Ox 36.5 C 72 24 H 176/106 H 93 12/19/16 12:00 12/19/16 12:00 12/19/16 12:00 12/19/16 12:00 12/19/16 12:00 Laboratory Results 12/18/16 05:15 12/19/16 04:31 12/18/16 12/19/16 12/20/16 05:59 05:59 05:59 Intake Total 1600 1500 Output Total 1550 1050 Balance 50 450 PT 12.8 SEC (12.0-15.0) 12/17/16 20:15 INR 0.97 (0.83-1.16) 12/17/16 20:15 - Pending Discharge Pending Discharge Within 24 Hours: Yes Pending Discharge Date: 12/20/16 Pending Discharge Time: 11:00 - Physical Exam Constitutional: no apparent distress, not in pain, obese, No uncomfortable Cardiovascular: regular rate and rhythym, no murmur, rub, or gallop, No edema Respiratory: expiratory wheeze, bronchial breath sounds, No inspiratory crackles , No respiratory distress Gastrointestinal: normoactive bowel sounds, soft, non-tender abdomen, no palpable masses Neurologic: sensation intact bilaterally, No weakness Psychiatric: interacting appropriately, not anxious, not encephalopathic, thought process linear, other (Resting comfortably) ICD10 Worksheet Patient Problems: Problems Problem Status Onset Diabetic foot infection Acute Suicidal ideation Acute Alcohol intoxication Acute Chest pain Acute Shortness of breath Acute Hypoxia Acute Elevated troponin Acute
[2016-12-19] MEDS ORDERED: traZODone 50 MG TAB PO PRN (16:08)
[2016-12-19] MEDS: LURASIDONE HCL 80 MG TAB PO SCH (20:12)
[2016-12-19] MEDS: QUEtiapine FUMARATE 300 MG TAB PO SCH (20:12)
[2016-12-20] MEDS: IPRATROPIUM/ALBUTEROL 3 ML DEYVIAL IH SCH ×3 (00:03→11:44)
[2016-12-20 05:02] LABS: ANION GAP 9 mEq/L (8-16); CALCIUM 8.8 mg/dL (8.5-10.4); CARBON DIOXIDE 30 mEq/l (22-31); CHLORIDE 101 mEq/L (97-110); CREATININE 0.8 mg/dL (0.7-1.3); GLOMERULAR FILTRATION RATE > 60; GLUCOSE 105 mg/dL (70-100); MAGNESIUM 1.7 mg/dL (1.6-2.3); POTASSIUM 3.2 mEq/L (3.5-5.2); SODIUM 140 mEq/L (134-144)
[2016-12-20] MEDS: METOPROLOL TARTRATE 50 MG TAB PO SCH ×2 (06:16→19:58)
[2016-12-20] MEDS: LISINOPRIL 40 MG TAB PO SCH (06:16)
[2016-12-20] MEDS: HYDROCHLOROTHIAZIDE 25 MG TAB PO SCH (06:17)
[2016-12-20] MEDS ORDERED: POTASSIUM CL 20 MEQ TAB PO ONE (08:12)
[2016-12-20] MEDS ORDERED: MAGNESIUM SULF 1 GM/DEXTROSE 100 ML IV ONE (08:12)
[2016-12-20] MEDS ORDERED: amLODIPine BESYLATE 5 MG TAB PO SCH (09:00)
[2016-12-20] MEDS: FAMOTIDINE 20 MG TAB PO SCH ×2 (09:53→19:59)
[2016-12-20] MEDS: AMOXICILLIN/CLAVULANATE POT 875/125 MG TAB PO SCH ×2 (09:53→19:57)
[2016-12-20] MEDS: ENOXAPARIN 40 MG/0.4 ML SYR SC SCH (09:53)
[2016-12-20] MEDS: FOLIC ACID 1 MG TAB PO SCH (09:53)
[2016-12-20] MEDS: MULTIVITAMINS 1 EACH TAB PO SCH (09:54)
[2016-12-20] MEDS: SERTRALINE HCL 100 MG TAB PO SCH (09:54)
[2016-12-20] MEDS: NICOTINE 21 MG/24 HR PATCH TD SCH (09:54)
[2016-12-20] MEDS: POTASSIUM CL 20 MEQ TAB PO SCH (09:54)
[2016-12-20] MEDS: predniSONE 20 MG TAB PO SCH (09:54)
[2016-12-20] MEDS: THIAMINE HCL 100 MG TAB PO SCH (09:55)
[2016-12-20] MEDS ORDERED: BENZONATATE 100 MG CAP PO PRN (12:37)
[2016-12-20] MEDS ORDERED: IPRATROPIUM/ALBUTEROL 3 ML DEYVIAL IH PRN (12:37)
[2016-12-20] MEDS: LORazepam 1 MG TAB PO PRN (13:22)
[2016-12-20] MEDS: NICOTINE POLACRILEX 2 MG GUM B PRN (13:22)
--- NOTE | 2016-12-20 14:47 | HOSPPROG ---
Hospitalist Progress Note Assessment/Plan: Assessment: 46 yo M p/w acute hypoxic respiratory failure 2/2 acute COPD exacerbation Plan: 1. Acute hypoxic respiratory failure. Evidenced by SpO2 80% w/ symptomatic shortness of breath, requiring NRB, 2/2 acute COPD exacerbation -tx COPD -cont ambulatory trials -unclear if will need supp o2 at discharge 2. Acute COPD exacerbation. Evidenced by diffuse exp wheezes and bronchial breath sounds, smoking hx, reportedly supposed to be on o2 and albuterol as outpt, likely viral URI precipitant -adjust to PRN duonebs today -cont PO steroids, D#3/5 -azithro, D#3/5 -mucinex and tessalon 3. Chronic diastolic CHF. No e/o acute exacerbation, avoid ongoing IVF 4. Atelectasis. Present on CTA, get IS 5. Acute EtOH intoxication. Monitor for withdraw on CIWA, please do not start scheduled alcohol 6. Chest pain. Acute, likely 2/2 COPD, mild troponin release likely from exacerbation, outside records (10/19/16 nuc stress test w/o ischemia) reviewed -no indication for further testing 7. Tobacco use disorder. Cessation encouraged, NRT ordered 8. Depression. Patient feeling very depressed today, does not feel like he will be able to handle discharge today or self care - d/w TLC, appreciate consultation Diet. Regular PPx. High risk, lovenox 40 Code. Full Dispo. ADD 12/21, pending stabilization of above. Subjective: patient is feeling depressed today, he does not know endorse overt suicidal ideation but does not feel like he will be able to do well if he is discharged Objective: Vital Signs Temp Pulse Resp BP Pulse Ox 36.6 C 76 20 171/124 H 92 12/20/16 12:29 12/20/16 12:29 12/20/16 12:29 12/20/16 12:29 12/20/16 12:29 Laboratory Results 12/18/16 05:15 12/20/16 04:34 12/19/16 12/20/16 12/21/16 05:59 05:59 05:59 Intake Total 1500 800 Output Total 1050 Balance 450 800 PT 12.8 SEC (12.0-15.0) 12/17/16 20:15 INR 0.97 (0.83-1.16) 12/17/16 20:15 - Time Spent With Patient Time Spent with Patient: greater than 35 minutes Time Spent with Patient: Greater than 35 minutes spent on this patients care, greater than 50% of time spent counseling, educating, and coordinating care regarding the above mentioned plan. - Physical Exam Constitutional: not in pain, No uncomfortable Cardiovascular: regular rate and rhythym, no murmur, rub, or gallop, No edema Respiratory: no respiratory distress, no rales or rhonchi, clear to auscultation , No expiratory wheeze, No bronchial breath sounds Gastrointestinal: normoactive bowel sounds, soft, non-tender abdomen, no palpable masses Neurologic: AAOx3, sensation intact bilaterally Psychiatric: anxious, depressed, flat affect, No agitated ICD10 Worksheet Patient Problems: Problems Problem Status Onset Diabetic foot infection Acute Suicidal ideation Acute Alcohol intoxication Acute Chest pain Acute Shortness of breath Acute Hypoxia Acute Elevated troponin Acute
[2016-12-20] MEDS ORDERED: hydrALAZINE 20 MG/ML VIAL IVP PRN (18:04)
[2016-12-20] MEDS: LURASIDONE HCL 80 MG TAB PO SCH (19:58)
[2016-12-20] MEDS: QUEtiapine FUMARATE 300 MG TAB PO SCH (19:59)
[2016-12-21 05:19] LABS: ANION GAP 8 mEq/L (8-16); CALCIUM 9.1 mg/dL (8.5-10.4); CARBON DIOXIDE 29 mEq/l (22-31); CHLORIDE 101 mEq/L (97-110); CREATININE 1.2 mg/dL (0.7-1.3); GLOMERULAR FILTRATION RATE > 60; GLUCOSE 122 mg/dL (70-100); MAGNESIUM 2.1 mg/dL (1.6-2.3); POTASSIUM 3.2 mEq/L (3.5-5.2); SODIUM 138 mEq/L (134-144)
[2016-12-21] MEDS ORDERED: predniSONE 20 MG TAB PO SCH (08:26)
[2016-12-21] MEDS ORDERED: POTASSIUM CL 20 MEQ TAB PO ONE (08:26)
[2016-12-21] MEDS ORDERED: HYDROCHLOROTHIAZIDE 25 MG TAB PO SCH (09:00)
[2016-12-21] MEDS ORDERED: amLODIPine BESYLATE 5 MG TAB PO SCH (09:00)
[2016-12-21] MEDS: AMOXICILLIN/CLAVULANATE POT 875/125 MG TAB PO SCH (09:52)
[2016-12-21] MEDS: THIAMINE HCL 100 MG TAB PO SCH (09:52)
[2016-12-21] MEDS: METOPROLOL TARTRATE 50 MG TAB PO SCH (09:52)
[2016-12-21] MEDS: FOLIC ACID 1 MG TAB PO SCH (09:53)
[2016-12-21] MEDS: SERTRALINE HCL 100 MG TAB PO SCH (09:53)
[2016-12-21] MEDS: LISINOPRIL 40 MG TAB PO SCH (09:53)
[2016-12-21] MEDS: MULTIVITAMINS 1 EACH TAB PO SCH (09:53)
[2016-12-21] MEDS: POTASSIUM CL 20 MEQ TAB PO SCH (09:54)
[2016-12-21] MEDS: NICOTINE 21 MG/24 HR PATCH TD SCH (09:54)
[2016-12-21] MEDS: FAMOTIDINE 20 MG TAB PO SCH (09:54)
[2016-12-21] MEDS: ENOXAPARIN 40 MG/0.4 ML SYR SC SCH (09:55)
[2016-12-21 11:50] VITALS: BP 154/108; PULSE 69; RESP 18; TEMP 98.9; O2SAT 93
[2016-12-21] MEDS ORDERED: ALBUTEROL 60 PUFFS/8 GM MDI IH PRN (13:14)
--- NOTE | 2016-12-21 14:27 | PDDCSUM ---
Discharge Summary Discharge Summary: DISCHARGE SUMMARY FOLLOW-UP ITEMS: [facility], follow-up care at [facility] DATE OF ADMISSION: 12/17/16 DATE OF DISCHARGE: 12/21/16 DISCHARGE DIAGNOSES: 1. Acute hypoxic respiratory failure 2. Acute COPD exacerbation 3. Chronic diastolic congestive heart failure 4. Atelectasis 5. Acute alcohol intoxication 6. Acute chest pain 7. Tobacco use disorder 8. Depression and anxiety 9. Chronic hypertension CONSULTATIONS: Mental health PROCEDURES / IMAGING: Chest x-ray demonstrating no focal infiltrate CHIEF COMPLAINT: Acute shortness of breath, chest pain SUBJECTIVE: Patient is feeling well at time of discharge, patient is not suicidal PHYSICAL EXAM ON DISCHARGE: Systolic blood pressure is 160, heart rate 60, satting well on room air, expiratory wheezes and bronchial breath sounds are still present bilaterally but there of lesser severity than 9 on days prior, no visible tachypnea or shortness of breath LABS ON DISCHARGE: Potassium 3.2, creatinine 1.2, BUN 26 HOSPITAL COURSE BY PROBLEM: 1. Acute hypoxic respiratory failure. Evidenced by SpO2 of 80% with symptomatic shortness of breath, requiring non-rebreather mask, secondary to acute COPD exacerbation. Patient's COPD was treated and he was weaned on supplemental oxygen. Will not require supplemental oxygen at time of discharge. His severity of illness definitely met that of acute hypoxic respiratory failure as he was admitted to our step-down unit. 2. Acute COPD exacerbation. Evidenced by diffuse expiratory wheezes and bronchial breath sounds in the setting of extensive smoking history. Most likely etiology is viral URI precipitant and patient stabilized with the use of steroids, scheduled duo nebs, azithromycin. He received 4 days of treatment and will have prescriptions written for antibiotics and steroids for 1 additional day. He also be given albuterol inhaler at time of discharge. Should be noted that the patient may have left the unit and discharged himself prior to getting these medications so it is possible that he may have left against medical advice without these medications. 3. Chronic diastolic congestive heart failure. No evidence of acute exacerbation, the patient was continued on his beta-marie and SEJAL-inhibitor. 4. Atelectasis. Present on CT of the chest, patient was maintained on incentive spirometer during this hospitalization. 5. Acute alcohol intoxication. Patient was monitored for signs and symptoms of acute alcohol withdrawal but these did not manifest. 6. Acute chest pain. Most likely secondary to COPD and cough. He received Mucinex and Tessalon during this hospitalization with good relief of his chest discomfort. Patient did have a nuclear medicine stress test on 10/19/2016 which demonstrated no evidence of ischemia, so no further cardiac risk stratification was pursued during this hospitalization. 7. Tobacco use disorder. Cessation was encouraged, the patient was placed on nicotine replacement therapy during hospitalization. 8. Depression and anxiety. The patient was feeling particularly depressed once his acute medical condition improved and he was seen by mental health provider. This mental health provider recommended that the patient reestablish care at [facility] where he is currently an established patient. They recommend continuing him on his medications but did not recommend inpatient psychiatric stabilization at this time. 9. Chronic hypertension. The patient has chronic hypertension is unclear whether he is adherent to his medications outside the hospital. He was continued on lisinopril and hydrochlorothiazide and up titrated on metoprolol and had amlodipine added. His laboratory values demonstrated a marginally rising creatinine level as well as a declining potassium level consequently, his hydrochlorothiazide was reduced in its dosage and he was given the opportunity to have lisinopril, metoprolol, amlodipine provided to him free of charge prior to discharge. It is unclear at this time whether the patient has left the hospital without taking these medications with him. DISCHARGE MEDICATIONS: Please see official discharge medication reconciliation sheet in chart , amlodipine 5 mg daily, lisinopril 40 mg daily, metoprolol tartrate 100 mg twice daily, hydrochlorothiazide 12.5 mg daily, albuterol inhaler as needed, prednisone 60 mg daily for 1 subsequent day, Augmentin 875 twice daily for 1 subsequent day. DISCHARGE INSTRUCTIONS: Patient should follow up at [facility] as well as [facility]. TIME SPENT: Greater than 30 minutes were spent on direct patient care, as well as discharge planning and preparation.
== END 2016-12-21 15:10 | disposition home or self-care (01) | DRG 190 ==
LOC: EDUNIT# → OBSVTOIN 22:08 → F2N 22:20 → F3E 12-18 14:34
PROVIDERS: ADMIT Family Medicine; ATTEND Family Medicine
DX: J44.1 Chronic obstructive pulmonary disease with (acute) exacerbation (principal); J96.01 Acute respiratory failure with hypoxia; J98.11 Atelectasis; F10.129 Alcohol abuse with intoxication, unspecified; I50.32 Chronic diastolic (congestive) heart failure; I10 Essential (primary) hypertension; Z59.0 Homelessness; E66.9 Obesity, unspecified; Z68.36 Body mass index [BMI] 36.0-36.9, adult; F17.210 Nicotine dependence, cigarettes, uncomplicated
CPT/HCPCS: 96374; 97116-GP; 97161-GP; G0480; J0360; J1650; J2310; J3475; Q9967

== ENCOUNTER 2017-02-01 20:16 | Emergency (ER) | payer MEDICAID ==
[2017-02-01 20:31] VITALS: RESP 18
--- NOTE | 2017-02-01 20:41 | CPEKG ---
Heart Rate: 111 RR Interval: 541 P-R Interval: 132 QRSD Interval: 96 QT Interval: 356 QTC Interval: 484 P Odd: 32 QRS Odd: 19 T Wave Odd: 16 EKG Severity - ABNORMAL ECG - EKG Impression: SINUS TACHYCARDIA EKG Impression: PROBABLE LEFT VENTRICULAR HYPERTROPHY EKG Impression: BORDERLINE PROLONGED QT INTERVAL Electronically Signed By: Haleigh Aldrich 01-Feb-2017 22:13:47
--- NOTE | 2017-02-01 20:46 | EDPHY ---
H & P Stated Complaint: chest discomfort x5-6, seeing spots, dizziness, L arm weak/ numb - Personal History Current Tetanus/Diphtheria Vaccine: Yes Current Tetanus Diphtheria and Acellular Pertussis (TDAP): Yes Tetanus Vaccine Date: < 10 YEARS - Medical/Surgical History Hx Asthma: No Hx Chronic Respiratory Disease: Yes Hx Diabetes: Yes Hx Cardiac Disease: Yes Hx Renal Disease: No Hx Cirrhosis: No Hx Alcoholism: Yes Hx HIV/AIDS: No Hx Splenectomy or Spleen Trauma: No Other PMH: PMHx: depression, COPD, HTN, prediabetes, alcoholism, anxiety, schizophrenia, TBI. PSHx: appy CHILDHOOD - Social History Smoking Status: Heavy smoker Time Seen by Provider: 02/01/17 20:33 HPI/ROS: CHIEF COMPLAINT: Chest pain, dyspnea HISTORY OF PRESENT ILLNESS: 46-year-old homeless male past medical history significant for COPD, CHF, homelessness, released from [facility] 1 week ago, complaining of 3-4 days of left-sided chest pain, near syncope,dyspnea. He last used methamphetamine 5 days ago after being released from [facility] 7 days ago.. Denies cocaine use. Positive daily daily tobacco cigarette use. No abdominal pain. No nausea or vomiting. No syncope or near syncope. No dizziness. He also notes intermittent flashers in his field of vision. None currently. No visual acuity changes. No ocular pain. No black spots or visual field cuts. He also complains of depression without suicidal ideation or homicidal ideation , after being released from [facility] REVIEW OF SYSTEMS: A ten point review of systems was performed and is negative with the exception of the items mentioned in the HPI PAST MEDICAL & SURGICAL HISTORY: COPD. CHF. Depression anxiety. Hypertension. SOCIAL HISTORY: Admits to positive alcohol use today . Homeless PHYSICAL EXAM (Prior to examination, patient consented to physical exam, hands were washed and my usual and customary physical exam procedures followed) 1) GENERAL: obese , alert and oriented. Appears to be in no acute distress. speaking full sentences with no signs of respiratory distress 2) HEAD: Normocephalic, atraumatic 3) HEENT: Pupils equal, round, reactive to light bilaterally. Sclera anicteric. No injection. funduscopic examination grossly unremarkable. Nasopharynx, oropharynx, clear, no lesions. 4) NECK: Full range of motion, no meningeal signs. 5) LUNGS: Clear auscultation bilaterally, no wheezes, no rhonchi, no retractions. 6) HEART: Regular rate and rhythm, no murmur, no heave, no gallop. 7) ABDOMEN: No guarding, no rebound, no focal tenderness, negative McBurney's, 8) MUSCULOSKELETAL: Moving all extremities, no focal areas of tenderness, no obvious trauma. No peripheral edema or discoloration. 9) BACK: no visual or palpable abnormality. 10) SKIN: No rash, no petechiae. 11) Psychiatric: Patient is oriented X 3, there is no agitation. DIFFERENTIAL DIAGNOSIS: In no particular order, including but not limited to myocardial ischemia, CHF exacerbation, COPD exacerbation, pulmonary embolus, chest wall pain, pleural inflammation and pulmonary infectious causes. (Sohail Mendoza) Constitutional: Initial Vital Signs Temperature (C) 37.2 C 02/01/17 20:21 Heart Rate 116 H 02/01/17 20:21 Respiratory Rate 18 02/01/17 20:21 Blood Pressure 129/83 H 02/01/17 20:21 O2 Sat (%) 88 L 02/01/17 20:21 O2 Delivery Mode Room Air O2 (L/minute) 3 Allergies/Adverse Reactions: venom-honey bee [bee venom (honey bee)] Allergy (Verified 12/17/16 19:51) Home Medications: Medication Instructions Recorded Lurasidone HCl [Latuda] 80 mg PO HS 11/04/16 QUEtiapine FUMARATE [Seroquel 300 mg PO HS 11/04/16 300mg (*)] Sertraline HCl [Zoloft 100mg (*)] 150 mg PO DAILY 11/04/16 traZODone [traZODONE 100MG (*)] 50 - 200 mg PO HS PRN 11/04/16 Lisinopril [Zestril 40 mg (*)] 40 mg PO DAILY #30 tab 11/09/16 Hydrochlorothiazide [HCTZ (*)] 12.5 mg PO DAILY tab 12/21/16 Lisinopril [Zestril 40 mg (*)] 40 mg PO DAILY #14 tab 12/21/16 Metoprolol Tartrate 100 mg PO BID #28 tablet 12/21/16 amLODIPine BESYLATE [Norvasc 5 mg 5 mg PO DAILY #14 tab 12/21/16 (*)] predniSONE 60 mg PO DAILY #3 tablet 12/21/16 Medical Decision Making ED Course/Re-evaluation: Patient was re-evaluated with serial exams also examined and evaluated by Dr. Haleigh Aldrich. At discharge he mentions that he is feeling increasingly depressed , states that he has been drinking more than usual because of his depression and states that he would like to speak with mental health professional. I specifically inquired at this time whether he was experiencing active thoughts of suicide or homicide he denies this. He would like to go to [facility] speak with a mental health professional this evening. We have arranged for a [email or web address] cab to take him to [facility] walk-in clinic at 11:[address] Aldrich and I reviewed his laboratory studies. We think that acute CHF exacerbation, OK, PE, less than likely in this patient. He is noted to have history of COPD. He also mentioned that a few days ago he noticed flashing lights in his field of vision which have now resolved and currently denies visual acuity changes, floaters, black spots in her visual field cuts. Doubt ophthalmological emergent condition at this time however I did discuss importance of return to the emergency department immediately should he develop visual acuity changes. (Shoail Mendoza) This patient was seen and examined by me. Lungs are clear to auscultation, no wheezing. I agree with Radha Mendoza's assessment and plan. No SI/HI. (Haleigh Aldrich) - Data Points Laboratory Results: Laboratory Results 02/01/17 21:02 02/01/17 21:02 Medications Given: Discontinued Medications Albuterol/Ipratropium (Duoneb) 3 ml IH EDNOW ONE Stop: 02/01/17 20:51 Last Admin: 02/01/17 21:12 Dose: 3 ml Methylprednisolone Sodium Succinate (Solu-Medrol) 125 mg IVP EDNOW ONE Stop: 02/01/17 20:51 Last Admin: 02/01/17 21:20 Dose: 125 mg Departure - Departure Disposition: Home, Routine, Self-Care Clinical Impression: Dyspnea Condition: Good Instructions: Dyspnea (ED) Referrals: ASHLEE [facility]ELCH[facility] [employer] [facility] [Other] - 1-2 days without fail
[2017-02-01] MEDS ORDERED: methylPREDNISolone SOD SUCC 125 MG/2 ML VIAL IVP ONE (20:50)
[2017-02-01] MEDS ORDERED: IPRATROPIUM/ALBUTEROL 3 ML DEYVIAL IH ONE (20:50)
[2017-02-01 21:09] LABS: % IMMATURE GRANULYOCYTES 0.4 % (0.0-1.1); ABSOLUTE IMMATURE GRANULOCYTES 0.06 10^3/uL (0.00-0.10); ADD DIFF? NO; ADD MORPH? NO; ADD SCAN? NO; ATYPICAL LYMPHOCYTE FLAG 0 (0-99); FRAGMENT RBC FLAG 0 (0-99); HEMATOCRIT 48.4 % (40.0-51.0); HEMOGLOBIN 16.8 g/dL (13.7-17.5); LEFT SHIFT FLG 0 (0-99); LIPEMIA HEMOLYSIS FLAG 90 (0-99); MEAN CELL HEMOGLOBIN 32.7 pg (27.9-34.1); MEAN CELL HEMOGLOBIN CONCENTR. 34.7 g/dL (32.4-36.7); MEAN CELL VOLUME 94.3 fL (81.5-99.8); MEAN PLATELET VOLUME 9.3 fL (8.7-11.7); PLATELET CLUMPS FLAG 10 (0-99); PLATELET COUNT 285 10^3/uL (150-400); RED BLOOD CELL COUNT 5.13 10^6/uL (4.40-6.38)
[2017-02-01 21:37] LABS: ANION GAP 15 mEq/L (8-16); CALCIUM 9.1 mg/dL (8.5-10.4); CARBON DIOXIDE 23 mEq/l (22-31); CHLORIDE 100 mEq/L (97-110); CREATININE 1.6 mg/dL (0.7-1.3); ETHANOL SERUM 119 mg/dL (0-10); GLOMERULAR FILTRATION RATE 46; GLUCOSE 118 mg/dL (70-100); POTASSIUM 3.4 mEq/L (3.5-5.2); SODIUM 138 mEq/L (134-144)
[2017-02-01 21:48] LABS: TROPONIN I 0.027 ng/mL (0-0.034)
[2017-02-01 22:01] LABS: APTT 25.8 SEC (23.0-38.0); INR 0.98 (0.83-1.16); PROTIME(PATIENT) 12.9 SEC (12.0-15.0)
[2017-02-01 23:42] VITALS: BP 122/83; PULSE 96; TEMP 98.2; O2SAT 91
== END 2017-02-01 23:42 | disposition home or self-care (01) ==
DX: R06.00 Dyspnea, unspecified (principal); E11.9 Type 2 diabetes mellitus without complications; I10 Essential (primary) hypertension; J44.9 Chronic obstructive pulmonary disease, unspecified; F17.200 Nicotine dependence, unspecified, uncomplicated; I50.9 Heart failure, unspecified
CPT/HCPCS: 96374; G0480

== ENCOUNTER 2017-02-02 02:38 | Emergency (ER) | payer MEDICAID ==
--- NOTE | 2017-02-02 04:03 | EDPHY ---
H & P Stated Complaint: wants to detox Source: Patient - Personal History Current Tetanus/Diphtheria Vaccine: Yes Current Tetanus Diphtheria and Acellular Pertussis (TDAP): Yes Tetanus Vaccine Date: < 10 YEARS - Medical/Surgical History Hx Asthma: No Hx Chronic Respiratory Disease: Yes Hx Diabetes: Yes Hx Cardiac Disease: Yes Hx Renal Disease: No Hx Cirrhosis: No Hx Alcoholism: Yes Hx HIV/AIDS: No Hx Splenectomy or Spleen Trauma: No Other PMH: PMHx: depression, COPD, HTN, prediabetes, alcoholism, anxiety, schizophrenia, TBI. PSHx: appy CHILDHOOD - Social History Smoking Status: Heavy smoker Time Seen by Provider: 02/02/17 03:03 HPI/ROS: HPI The patient presents complaining of auditory hallucinations, command in type, telling him to hurt himself and others. These have been going on for the last several days in the setting of methamphetamine use in have been intermittent in nature. He has had them before. He is requesting mental health evaluation. The patient was in the emergency room a few hours ago for chest pain. He had a medical evaluation and no significant acute process was found. He requested mental health resources and was directed to [facility]. At [facility] he had some lab work performed and had a urine toxicology which was positive for amphetamine, benzodiazepine, possibly cocaine. Because of his urine toxicology positive for benzodiazepine, he was told he could not go to [facility] where he was hoping to go for drug detox. It seems he became upset, left [facility] and went to the parking lot and drink alcohol. He then arrived to the emergency room. He currently denies any medical complaints. REVIEW OF SYSTEMS Constitutional: No fever, no chills. Eyes: No discharge. ENT: No sore throat. Cardiovascular: No chest pain, no palpitations. Respiratory: No cough, no shortness of breath. Gastrointestinal: No abdominal pain, no vomiting. Genitourinary: No hematuria. Musculoskeletal: No back pain. Skin: No rashes. Neurological: No headache. PMHx: COPD, CHF, hypertension Soc Hx: Homeless, methamphetamine use PHYSICAL General Appearance: Alert, no distress Eyes: Pupils equal and round no pallor or injection ENT, Mouth: Mucous membranes moist Respiratory: There are no retractions, lungs are clear to auscultation Cardiovascular: Regular rate and rhythm Gastrointestinal: Abdomen is soft and non-tender, no masses, bowel sounds normal Neurological: A&O, moves all extremities Skin: Warm and dry, no rashes Musculoskeletal: Neck is supple non tender Extremities: symmetrical, full range of motion Psychiatric: Patient is oriented X 3, there is no agitation (Nelda Garcia) Constitutional: Initial Vital Signs Temperature (C) 36.4 C 02/02/17 03:21 Heart Rate 102 H 02/02/17 03:21 Respiratory Rate 18 02/02/17 03:21 Blood Pressure 103/81 H 02/02/17 03:21 O2 Sat (%) 92 02/02/17 03:21 O2 Delivery Mode Room Air Allergies/Adverse Reactions: venom-honey bee [bee venom (honey bee)] Allergy (Verified 12/17/16 19:51) Home Medications: Medication Instructions Recorded Lurasidone HCl [Latuda] 80 mg PO HS 11/04/16 QUEtiapine FUMARATE [Seroquel 300 mg PO HS 11/04/16 300mg (*)] Sertraline HCl [Zoloft 100mg (*)] 150 mg PO DAILY 11/04/16 traZODone [traZODONE 100MG (*)] 50 - 200 mg PO HS PRN 11/04/16 Lisinopril [Zestril 40 mg (*)] 40 mg PO DAILY #30 tab 11/09/16 Hydrochlorothiazide [HCTZ (*)] 12.5 mg PO DAILY tab 12/21/16 Lisinopril [Zestril 40 mg (*)] 40 mg PO DAILY #14 tab 12/21/16 Metoprolol Tartrate 100 mg PO BID #28 tablet 12/21/16 amLODIPine BESYLATE [Norvasc 5 mg 5 mg PO DAILY #14 tab 12/21/16 (*)] predniSONE 60 mg PO DAILY #3 tablet 12/21/16 Medical Decision Making ED Course/Re-evaluation: In the emergency room, labs were checked. His U tox was positive for a variety of substances including amphetamine. Alcohol level was initially elevated, however he was breathalyzer with a negative alcohol level at about 6:00 a.m.. He remained stable, he would like to speak with the mental health worker and this is pending. At 7:00 a.m., the case will be signed out to the oncoming provider Dr. Jack. (Nelda Garcia) Care assumed at 7:00 a.m.. I spoke with the patient at 8:00 a.m.. I also spoke with Kory from mental health. The patient is chronically intoxicated and while intoxicated suffers from these types of paranoid thoughts that resolve when he is sober. The patient is now clinically sober. He denies hallucinations or homicidality or suicidality. He will not be evaluated by Mental Health until after 4:00 p.m. because of his urine tox. He would like to go. I will discharge him and have recommended that if he decides that he wants to speak with mental health he should go to the crisis Center after 4p.m.. He understands and agrees with this plan. He declines further workup observation. (Dillon Jack) Differential Diagnosis: This is a 46-year-old male with multiple medical problems, homelessness, amphetamine abuse who presents to the emergency room requesting mental health evaluation for hallucinations. He was seen earlier in the day for chest pain, he does not have this any more. He attempted to go to [facility] today however wound up back in the emergency room. He denies any suicidality or homicidality. He does admit to methamphetamine use. He does not meet criteria for M1 hold. Differential diagnosis includes decompensated schizophrenia, amphetamine abuse, polysubstance abuse, [facility] seeking behavior. (Nelda Garcia) Departure - Departure Disposition: Home, Routine, Self-Care Clinical Impression: Auditory hallucinations, Amphetamine abuse Condition: Fair Instructions: Polysubstance Abuse (ED) Additional Instructions: Please seek care at [facility] as needed Referrals: [facility] [Outside] - As per Instructions
[2017-02-02 07:40] VITALS: RESP 16
[2017-02-02 08:21] VITALS: BP 140/89; PULSE 90; TEMP 97.7; O2SAT 95
== END 2017-02-02 08:27 | disposition home or self-care (01) ==
LOC: EDUNIT#
DX: R44.0 Auditory hallucinations (principal); F15.10 Other stimulant abuse, uncomplicated; J44.9 Chronic obstructive pulmonary disease, unspecified; I10 Essential (primary) hypertension; F17.200 Nicotine dependence, unspecified, uncomplicated; I50.9 Heart failure, unspecified
CPT/HCPCS: 80305

== ENCOUNTER 2017-03-31 22:18 | Emergency (ER) | payer MEDICAID ==
--- NOTE | 2017-03-31 22:29 | EDPHY ---
H & P Source: Patient - Personal History Tetanus Vaccine Date: < 10 YEARS - Medical/Surgical History Hx Asthma: No Hx Chronic Respiratory Disease: Yes Hx Diabetes: Yes Hx Cardiac Disease: Yes Hx Renal Disease: No Hx Cirrhosis: No Hx Alcoholism: Yes Hx HIV/AIDS: No Hx Splenectomy or Spleen Trauma: No Other PMH: PMHx: depression, COPD, HTN, prediabetes, alcoholism, anxiety, schizophrenia, TBI. PSHx: appy CHILDHOOD - Social History Smoking Status: Heavy smoker HPI/ROS: HPI CHIEF COMPLAINT: Anxiety, hypertension, paranoia HISTORY OF PRESENT ILLNESS: This patient 47-year-old male, significant past medical history for schizophrenia, presents emergency room by [facility] from [facility] for paranoia. Tells me people are trying to kill him. He is homeless. He admits to drinking a lot of alcohol this evening. Also admits to doing methamphetamine. He does have significant past medical history for hypertension , COPD, CHF, tobacco use, he tells me cannot remember the last time he took his blood pressure medication. Tells me takes lisinopril, Norvasc, clonidine. Patient tells me he is very anxious. Past Medical History: Hypertension, depression, schizophrenia, COPD, CHF, tobacco use Past Surgical History: Denies recent surgery Social History: Homeless. Daily tobacco use, alcohol use, admits to methamphetamine use. Family History: Contributory ROS REVIEW OF SYSTEMS: A comprehensive 10 point review of systems is otherwise negative aside from elements mentioned in the history of present illness. Exam Constitutional anxious, diaphoretic , smells of alcohol, triage nursing summary reviewed, vital signs reviewed, awake/alert. Vital signs are noted to be hypertensive. O2 sat 73%. Eyes normal conjunctivae and sclera, EOMI, PERRLA. HENT normal inspection, atraumatic, moist mucus membranes, no epistaxis, neck supple/ no meningismus, no raccoon eyes. Respiratory clear to auscultation bilaterally, normal breath sounds, no respiratory distress, no wheezing. Cardiovascular rate normal, regular rhythm, no murmur, no edema, distal pulses normal. Gastrointestinal soft, non-tender, no rebound, no guarding, normal bowel sounds, no distension, no pulsatile mass. Genitourinary no CVA tenderness. Musculoskeletal no midline vertebral tenderness, full range of motion, no calf swelling, no tenderness of extremities, no meningismus, good pulses, neurovascularly intact. Skin diaphoretic, pink, warm, no rash, skin atraumatic. Neurologic horizontal nystagmus, awake, alert and oriented x 3, AAOx3, moves all 4 extremities equally, motor intact, sensory intact, CN II-XII intact, normal cerebellar, normal vision, slurring of his speech Psychiatric normal mood/affect. Heme/Lymph/Immune no lymphadenopathy. Differential Diagnosis: Includes but is not limited to in a particular order acute anxiety, schizophrenia with paranoia, drug intoxication, alcohol intoxication, hypertensive from not taking his blood pressure medication Medical Decision Making: Plan for this patient IV establishment, blood draw. Check drug screen. Alcohol. Medical clearance. Give him oral p.o. blood pressure medications clonidine and Norvasc. Patient need to be placed on M1 hold due to paranoid schizophrenia. Re-evaluation: 2236: Patient was initially placed into ER room 19 however he is diaphoretic, short of breath with room air saturation of 73% moved ER room 5 for medical attention further medical workup. He denies chest pain. Does admit to headache. Plan for this patient EKG, troponin, CT head without contrast. If he stays persistently hypertensive mainly nicardipine. EKG interpretation by me on record in [employer] system. Impression time of EKG 2242. Sinus rhythm 83. I Do not appreciate acute ischemic change. Specifically is no ST elevation TN. No ST depression. No T-wave abnormalities. Borderline prolonged QT interval 408. Otherwise unremarkable EKG. CT scan of the head without IV contrast. The results of the study are negative for acute abnormality. . The study was read by Dr. Velasquez. I viewed the images myself on the PACS system. ED x-ray chest one view: Negative for acute cardiopulmonary disease. 2335: Patient resting comfortably at this time. Blood alcohol 363. Requiring 4 L nasal cannula at this time for hypoxia. Chest x-ray clear. Troponin negative. EKG nonischemic. CT head unremarkable. Plan will be to observe him as his hypoxia may be due to hypoventilation in the setting of COPD due to high alcohol intoxication. 2340: Patient's blood pressure stable 130/101 at this time. Heart rate 81. Pulse ox 89% on 4 L. blood work shows a positive D-dimer. CT scan of the angiogram chest with IV contrast The results of the study are negative for pulmonary embolism no aortic disease. . The study was read by Dr. Velasquez I viewed the images myself on the PACS system. 1227: A patient toxic with alcohol. Very sleepy. Obtain ABG at this time due to patient's history of COPD make sure is not retain pCO2. His CT angiogram chest is negative for pulmonary embolism or pneumonia or aortic disease. This was obtained due to hypoxia positive D-dimer. I believe the hypoxic is due to alcohol intoxication, hypoventilation, in underlying history of COPD 0119: Re-evaluation at this time. Patient is sleepy. Stable vital signs heart rate 78. Pulse ox 94%. He is requiring oxygen mask. Blood pressure 122/ 96. 0219AM: Patient stood up in ER room 5 in urinated all over the ground. We were able to get a urine sample. 0242AM: Patient is agitated. Getting out of bed. He still intoxicated alcohol. I have ordered him 1 mg IV Ativan and 5 mg p.o. Zyprexa. Additionally patient noted to be positive for methamphetamine on drug screen. This may be contributing to his psychosis. 0519AM: Patient is sleeping. Was given Zyprexa and Ativan. Resting comfortably. Normal vital signs heart rate 79. Pulse ox 96%. Blood pressure 136/98. 0611AM: 04/03/17: No acute events overnight. Patient slept most of the evening. Resting comfortably no complaints. Waiting inpatient psychiatric placement. [facility] was looking at him. 0647AM: Patient signed over to Dr. Moser at 7am shift-change. (Elmo Frias) Constitutional: Initial Vital Signs Temperature (C) 37.1 C 03/31/17 22:44 Heart Rate 91 03/31/17 22:44 Respiratory Rate 15 03/31/17 22:44 Blood Pressure 136/57 H 03/31/17 22:44 O2 Sat (%) 79 L 03/31/17 22:44 O2 Delivery Mode Room Air O2 (L/minute) 2 Allergies/Adverse Reactions: venom-honey bee [bee venom (honey bee)] Allergy (Verified 12/17/16 19:51) Home Medications: Medication Instructions Recorded Hydrochlorothiazide [HCTZ (*)] 25 mg PO DAILY 04/03/17 Levothyroxine [Synthroid 25 mcg 25 mcg PO DAILY06 04/03/17 (*)] Lisinopril [Zestril 40 mg (*)] 40 mg PO DAILY 04/03/17 Lurasidone HCl [Latuda] 80 mg PO DAILY@0800 04/03/17 Metoprolol Tartrate [Lopressor 50 50 mg PO BID 04/03/17 mg (*)] QUEtiapine FUMARATE [Seroquel 300 mg PO HS 04/03/17 300mg (*)] Sertraline HCl [Zoloft 100mg (*)] 200 mg PO DAILY 04/03/17 amLODIPine BESYLATE [Amlodipine 10 mg PO DAILY 04/03/17 Besylate] metFORMIN HCL [Metformin HCl] 500 mg PO BIDMEAL 04/03/17 traZODone [traZODONE 100MG (*)] 100 mg PO HS 04/03/17 Medical Decision Making Other Provider: Care assumed from Dr. Frias at 6:45 a.m.. He has been medically cleared for psychiatric evaluation and is most recent vital signs at 6:27 a.m. reference an oxygen saturation of 96% on room air. Per Dr. Frias and his evaluation up to this point, initial hypoxemia likely due to a combination of COPD and hypoventilation due to alcohol intoxication. Does not likely have CHF or pneumonia or pulmonary embolism at this time. Potassium initially low, had IV replacement ordered by Cherelle prior to my assuming care. 710: Patient evaluated, sleeping, was given Zyprexa for agitation prior to my assuming care. Alcohol was 363 and urine toxicology positive for methamphetamine and marijuana. Plan for serial examinations, psychiatric evaluation when awake and clinically sober. 1445: Signed out to Ehsan with plan as above. Breathalyzer 0.080 at this time. (Jean Kaur) I assumed care of the patient at 3:30pm. He is awaiting psychiatric evaluation and disposition. Update at 7:30 p.m.: I am informed that Psychiatric disposition is still pending. He was seen by the mental health director surgical. The patient will be turned back over to Dr. Frias at 10:00 p.m. (Darrell Todd) 3:00 p.m. patient's care transferred to [facility]. Patient has a history of schizophrenia and is paranoid. He has been evaluated and is on a hold. We are awaiting placement. 9:00 p.m. April 03 the patient's care transferred to wi. We continue to await placement. 10:40 p.m. the patient has been re-evaluated by mental health. They will place him at a withdrawal management facility and observe him there to see if he needs further psychiatric treatment. (Dillon Jack) - Data Points Laboratory Results: Laboratory Results 03/31/17 22:47 03/31/17 22:47 Medications Given: Discontinued Medications Amlodipine Besylate (Norvasc) 10 mg PO EDNOW ONE Stop: 03/31/17 22:28 Last Admin: 03/31/17 23:58 Dose: Not Given Amlodipine Besylate (Norvasc) 10 mg PO EDNOW ONE Stop: 04/03/17 07:50 Last Admin: 04/03/17 08:17 Dose: 10 mg Clonidine (Catapres) 0.1 mg PO EDNOW ONE Stop: 03/31/17 22:28 Last Admin: 03/31/17 23:58 Dose: Not Given Sodium Chloride (Ns) 1,000 mls @ 0 mls/hr IV ONCE ONE PRN Reason: Wide Open Stop: 03/31/17 22:52 Last Admin: 03/31/17 22:54 Dose: 1,000 mls Potassium Chloride (Potassium Cl 20 Meq (Premix)) 100 mls @ 50 mls/hr IV EDNOW ONE Stop: 04/01/17 01:14 Last Admin: 03/31/17 23:27 Dose: 100 mls Lorazepam (Ativan) 1 mg PO EDNOW ONE Stop: 03/31/17 22:27 Last Admin: 03/31/17 23:58 Dose: Not Given Lorazepam (Ativan Injection) 1 mg IVP EDNOW ONE Stop: 04/01/17 02:43 Last Admin: 04/01/17 04:13 Dose: 1 mg Lorazepam (Ativan Injection) 2 mg IVP EDNOW ONE Stop: 04/01/17 18:54 Last Admin: 04/01/17 18:59 Dose: 2 mg Olanzapine (Olanzapine) 5 mg PO ONCE ONE Stop: 04/01/17 02:42 Last Admin: 04/01/17 04:13 Dose: 5 mg Quetiapine Fumarate (Seroquel) 300 mg PO HS ONE Stop: 04/01/17 18:34 Last Admin: 04/01/17 20:06 Dose: 300 mg Departure - Departure Disposition: Home, Routine, Self-Care Clinical Impression: Methamphetamine abuse Alcohol intoxication Qualifiers: Complication of substance-induced condition: uncomplicated Qualified Code(s): F10.920 - Alcohol use, unspecified with intoxication, uncomplicated Schizophrenia Qualifiers: Schizophrenia type: unspecified Qualified Code(s): F20.9 - Schizophrenia, unspecified Condition: Good Instructions: Schizophrenia (ED), Alcohol Intoxication (ED), Methamphetamine Abuse (ED) Referrals: MELLISSA HERNANDEZ,. [Clinic] - As per Instructions
--- NOTE | 2017-03-31 22:45 | CPEKG ---
Heart Rate: 83 RR Interval: 723 P-R Interval: 148 QRSD Interval: 100 QT Interval: 408 QTC Interval: 480 P Winn: 42 QRS Winn: 19 T Wave Winn: -1 EKG Severity - BORDERLINE ECG - EKG Impression: SINUS RHYTHM EKG Impression: BORDERLINE PROLONGED QT INTERVAL Electronically Signed By: Jean Kaur 01-Apr-2017 07:16:39
[2017-03-31] MEDS ORDERED: NS 1,000 ML IV ONE (22:51)
[2017-03-31 23:00] LABS: % IMMATURE GRANULYOCYTES 0.5 % (0.0-1.1); ABSOLUTE IMMATURE GRANULOCYTES 0.07 10^3/uL (0.00-0.10); ADD DIFF? NO; ADD MORPH? NO; ADD SCAN? NO; ATYPICAL LYMPHOCYTE FLAG 10 (0-99); FRAGMENT RBC FLAG 0 (0-99); HEMATOCRIT 44.8 % (40.0-51.0); HEMOGLOBIN 15.8 g/dL (13.7-17.5); LEFT SHIFT FLG 0 (0-99); LIPEMIA HEMOLYSIS FLAG 90 (0-99); MEAN CELL HEMOGLOBIN 31.8 pg (27.9-34.1); MEAN CELL HEMOGLOBIN CONCENTR. 35.3 g/dL (32.4-36.7); MEAN CELL VOLUME 90.1 fL (81.5-99.8); MEAN PLATELET VOLUME 8.7 fL (8.7-11.7); PLATELET CLUMPS FLAG 0 (0-99); PLATELET COUNT 315 10^3/uL (150-400); RED BLOOD CELL COUNT 4.97 10^6/uL (4.40-6.38); RED CELL DISTRIBUTION WIDTH 13.2 % (11.5-15.2)
[2017-03-31 23:13] LABS: ANION GAP 15 mEq/L (8-16); CALCIUM 8.9 mg/dL (8.5-10.4); CARBON DIOXIDE 22 mEq/l (22-31); CHLORIDE 107 mEq/L (97-110); CREATININE 0.9 mg/dL (0.7-1.3); GLOMERULAR FILTRATION RATE > 60; GLUCOSE 129 mg/dL (70-100); POTASSIUM 3.6 mEq/L (3.5-5.2); SALICYLATE < 1.0 mg/dL (2.0-20.0); SODIUM 144 mEq/L (134-144)
[2017-03-31] MEDS ORDERED: POTASSIUM Cl (KCl) 100 ML IV ONE (23:15)
[2017-03-31] MEDS ORDERED: POTASSIUM Cl (KCl) 20 MEQ/50 ML BAG IV ONE (23:22)
[2017-03-31 23:25] LABS: ETHANOL SERUM 363 mg/dL (0-10); TROPONIN I 0.016 ng/mL (0-0.034)
[2017-03-31] MEDS ORDERED: amLODIPine BESYLATE 5 MG TAB ONE (23:25)
[2017-03-31] MEDS ORDERED: LORazepam 1 MG TAB ONE (23:25)
[2017-03-31 23:27] LABS: ALBUMIN 4.2 g/dL (3.5-5.0); BILIRUBIN,TOTAL 0.8 mg/dL (0.1-1.4); BILIRUBIN-CONJUGATED 0.4 mg/dL (0.0-0.5); BILIRUBIN-UNCONJUGATED 0.4 mg/dL (0.0-1.1); MAGNESIUM 2.1 mg/dL (1.6-2.3); TOTAL PROTEIN 7.1 g/dL (6.3-8.2)
[2017-03-31] MEDS: LORazepam 1 MG TAB PO ONE ×2 (23:27→23:58)
[2017-03-31] MEDS ORDERED: IOPAMIDOL (ISOVUE 370) 100 ML BTL IV ONE (23:42)
[2017-04-01 00:50] LABS: BASE EXCESS -0.2 mEq/L (-2.5-2.5); BICARBONATE 26 mEq/L (22-26); MEASURED OXYGEN SATURATION 95 % (92-95); PCO2 49 mmHg (34-38); PO2 86 mmHg (65-75); TCO2 27 mEq/L (23-27)
[2017-04-01] MEDS ORDERED: LORazepam 2 MG/ML INJ ONE ×2 (02:32→18:54)
[2017-04-01] MEDS ORDERED: OLANZapine 5 MG TAB PO ONE (02:41)
[2017-04-01] MEDS ORDERED: LORazepam 2 MG/ML INJ IVP ONE ×2 (02:42→18:53)
[2017-04-01] MEDS ORDERED: NICOTINE POLACRILEX 2 MG GUM B PRN (17:15)
[2017-04-01] MEDS ORDERED: PALIPERIDONE PALMITATE 156 MG/ML SYR IM ONE (18:32)
[2017-04-01] MEDS ORDERED: QUEtiapine FUMARATE 300 MG TAB PO ONE (18:33)
[2017-04-01] MEDS: traZODone 100 MG TAB PO SCH (20:06)
[2017-04-02] MEDS ORDERED: QUEtiapine FUMARATE 300 MG TAB PO SCH (21:00)
[2017-04-02] MEDS: traZODone 100 MG TAB PO SCH (22:04)
[2017-04-03] MEDS ORDERED: HYDROCHLOROTHIAZIDE 12.5 MG CAP PO SCH (09:00)
[2017-04-03] MEDS ORDERED: LISINOPRIL 40 MG TAB PO SCH (09:00)
[2017-04-03 16:04] VITALS: TEMP 98.8
[2017-04-03] MEDS ORDERED: CHLORDIAZEPOXIDE 25MG PREPK#6 BTL TAKEHOME ONE (23:05)
[2017-04-03 23:45] VITALS: BP 170/108; PULSE 73; RESP 16; O2SAT 93
== END 2017-04-03 23:44 | disposition home or self-care (01) ==
LOC: EDUNIT#
DX: F41.9 Anxiety disorder, unspecified (principal); F20.9 Schizophrenia, unspecified; F10.920 Alcohol use, unspecified with intoxication, uncomplicated; F15.10 Other stimulant abuse, uncomplicated; J44.9 Chronic obstructive pulmonary disease, unspecified; F17.200 Nicotine dependence, unspecified, uncomplicated; I11.0 Hypertensive heart disease with heart failure; I50.9 Heart failure, unspecified; Z79.84 Long term (current) use of oral hypoglycemic drugs
CPT/HCPCS: 80305; 82947-QW; 96365; 96366; G0480; J2060; J2426; Q9967

== ENCOUNTER 2017-04-10 19:44 | Emergency (ER) | payer MEDICAID ==
[2017-04-10 19:49] VITALS: RESP 16; O2SAT 96
[2017-04-10 20:24] LABS: % IMMATURE GRANULYOCYTES 0.6 % (0.0-1.1); ABSOLUTE IMMATURE GRANULOCYTES 0.08 10^3/uL (0.00-0.10); ADD DIFF? NO; ADD MORPH? NO; ADD SCAN? NO; ATYPICAL LYMPHOCYTE FLAG 0 (0-99); FRAGMENT RBC FLAG 0 (0-99); HEMATOCRIT 46.8 % (40.0-51.0); HEMOGLOBIN 16.8 g/dL (13.7-17.5); LEFT SHIFT FLG 0 (0-99); LIPEMIA HEMOLYSIS FLAG 90 (0-99); MEAN CELL HEMOGLOBIN CONCENTR. 35.9 g/dL (32.4-36.7); MEAN CELL VOLUME 89.1 fL (81.5-99.8); MEAN PLATELET VOLUME 8.9 fL (8.7-11.7); PLATELET CLUMPS FLAG 0 (0-99); PLATELET COUNT 251 10^3/uL (150-400); RED BLOOD CELL COUNT 5.25 10^6/uL (4.40-6.38); RED CELL DISTRIBUTION WIDTH 13.2 % (11.5-15.2)
[2017-04-10 20:35] LABS: ANION GAP 14 mEq/L (8-16); CALCIUM 9.8 mg/dL (8.5-10.4); CARBON DIOXIDE 25 mEq/l (22-31); CHLORIDE 102 mEq/L (97-110); CREATININE 0.9 mg/dL (0.7-1.3); ETHANOL SERUM < 10 mg/dL (0-10); GLOMERULAR FILTRATION RATE > 60; GLUCOSE 107 mg/dL (70-100); POTASSIUM 3.1 mEq/L (3.5-5.2); SODIUM 141 mEq/L (134-144)
[2017-04-10] MEDS ORDERED: METOPROLOL TARTRATE 50 MG TAB PO ONE (20:43)
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
[2017-04-10 22:45] VITALS: BP 161/101; PULSE 76; TEMP 98.1
[2017-04-11] MEDS ORDERED: HYDROCHLOROTHIAZIDE 25 MG TAB PO ONE (20:43)
== END 2017-04-10 23:18 | disposition home or self-care (01) ==
DX: I10 Essential (primary) hypertension (principal); F41.9 Anxiety disorder, unspecified; E11.9 Type 2 diabetes mellitus without complications; Z79.84 Long term (current) use of oral hypoglycemic drugs
CPT/HCPCS: 80305; G0480